=== PATIENT | female | born 1980 | race Caucasian/White ===

== ENCOUNTER 2017-01-15 14:09 | Emergency (ER) | payer OTHER ==
[~2017-01-15] VITALS: Ht 152.4 cm; Wt 150.5 kg
[~2017-01-15 14:09] MED LIST: ALBUAER19 INH; LEVOIUD
[2017-01-15 14:13] VITALS: BP 164/105; PULSE 82; TEMP 36.8; O2SAT 97; Ht 152.4 cm; Wt 150.5 kg
[2017-01-15] MEDS ORDERED: VNTHFA/IN INH (14:46)
[2017-01-15] MEDS ORDERED: SODIUM CHLORIDE 0.9% 1000ML 1,000 ML IV STA (14:59)
--- NOTE | 2017-01-15 15:05 | EMERGENCY ROOM VISIT NOTE ---
History First contact with patient: 14:50 Chief Complaint: OTHER COMPLAINT Stated Complaint: UMBILICAL HERNIA/SCAR TISSUE,TROUBLE PASSING STOOL History of Present Illness The patient is a 36 year old female who presents to the Emergency Room with complaints of left-sided abdominal pain. The patient states that last week she began to notice some left-sided abdominal pain. She had dry heaves on Thursday. The patient states that her bowel movements have been less productive. She reports the pain is in the left lower abdomen and she feels a fullness in that area. She rates her discomfort a 5/10. The patient has a history of abdominal hernia repair 3. She denies any fevers. She denies any pain in her chest or trouble breathing. She denies any current vomiting. She denies urinary symptoms. Review of Systems A 10 system review of systems was completed with positives and pertinent negatives listed in the HPI. Past Medical/Surgical History Medical Problems: (1) Adnexal mass (2) Asthma (3) Deep venous thrombosis (4) Repair of umbilical hernia (5) Schizophrenia (6) Ventral hernia Family History FH: cancer FH: gallbladder disease Social History Smoking Status: Never Smoker Alcohol Use: none Marital Status: Housing Status: lives with family Occupation Status: employed Current/Historical Medications Scheduled Cephalexin Monohydrate (Keflex), 500 MG PO QID Scheduled PRN Albuterol Hfa (Ventolin Hfa), 2 PUFFS INH Q6H PRN for SOB/Wheezing Miscellaneous Medications Levonorgestrel (Iud) (Mirena) Physical Exam Vital Signs Date Time Temp Pulse Resp B/P (MAP) Pulse Ox O2 Delivery O2 Flow Rate FiO2 01/15/17 14:13 36.8 82 18 164/105 97 Room Air Physical Exam VITALS: Vitals are noted on the nurse's note and reviewed by myself. Vital signs stable. GENERAL: This is a morbidly obese 36-year-old female, in no acute distress, nondiaphoretic, well-developed well-nourished. SKIN: There is a very minimal erythematous rash beneath the pannus on the right. There is no significant drainage, warmth. This has the appearance of candidiasis. There is no tenting of the skin. Capillary reflex less than 2 seconds. HEAD: Normocephalic atraumatic. EARS: The external ears are normal in appearance. EYES: Pupils equal round and reactive to light and accommodation. Conjunctivae without injection, sclerae without icterus. Extraocular movements intact. NOSE: Patent, turbinates without inflammation or discharge. MOUTH: Mucous membranes moist. Tonsils are not enlarged. Pharynx without erythema or exudate. Uvula midline. Airway patent. Tongue does not deviate. NECK: Supple without nuchal rigidity. No lymphadenopathy. No thyromegaly. Cervical spine is nontender. No JVD. HEART: Regular rate and rhythm without murmurs gallops or rubs. LUNGS: Clear to auscultation bilaterally without wheezes, rales or rhonchi. No retractions or accessory muscle use. ABDOMEN: The appearance is obese. Positive bowel sounds but diminished. Soft , fullness noticed in the left lower abdomen with tenderness to palpation, without masses or organomegaly. MUSCULOSKELETAL: No muscle atrophy, erythema, or edema noted. Full range of motion in all extremities. Normal gait. Strength 5/5 throughout. NEURO: Patient was alert and oriented to person place and time. No focal neurological deficits. Medical Decision & Procedures ER Provider Diagnostic Interpretation: [~ rep ct add3]] ABD/PELVIS NO IV OR ORAL CONT CLINICAL HISTORY: 36 years-old Female presenting with left lower abdominal pain, fullness; h/o hernia, bowel obstructi. TECHNIQUE: Multidetector CT of the abdomen and pelvis was performed without the use of intravenous contrast. IV contrast: None. A dose lowering technique was used consistent with the principles of ALARA (as low as reasonably achievable). COMPARISON: 11/18/2014. CT DOSE (mGy.cm): The estimated cumulative dose is 2517.07 mGy.cm. FINDINGS: Phthal[facility] Acid Purifier topogram: Unremarkable. Lung bases: Lung bases clear. No pericardial or pleural effusion. Liver: Normal morphology. Normal density. Biliary: No gross biliary ductal dilatation allowing for noncontrast technique. Normal gallbladder. Pancreas: Normal. Spleen: Normal. Adrenal glands: Normal. Kidneys and ureters: Normal. No hydronephrosis. Bladder: Incompletely evaluated secondary to underdistention. Pelvic organs: An exophytic 4.2 cm lesion arises from the lateral aspect of the right ovary and is greater in density than simple fluid. This appearance has slightly changed since the prior exam. The left ovary is normal. An intrauterine device is again located in the lower uterine segment with possible abnormal positioning. Bowel: Large midline ventral hernia has increased in size since the prior exam. The hernia neck at the peritoneal defect measures 11 cm in width and the hernia sac itself measures over 34 cm in width. The hernia sac contains cecum and small bowel. No bowel obstruction. Thin bandlike opacities within the mesentery of the small bowel contained within the hernia sac may suggest adhesions. No fluid or significant inflammatory change within the small bowel mesentery of the hernia sac. No apparent wall thickening allowing for noncontrast technique. Peritoneal cavity: No free fluid or intraperitoneal gas. Vasculature: Normal noncontrast appearance. Lymph nodes: No gross evidence of lymphadenopathy allowing for noncontrast technique. Abdominal wall: Infiltration of the anterior abdominal wall along the inferior aspect and abutting the hernia sac, without infiltration of the small bowel mesentery within the hernia sac. Musculoskeletal: Osteitis ileitis condensans noted. No destructive osseous lesion or acute osseous injury. IMPRESSION: 1. Increased size of the large ventral hernia containing cecum and small bowel. No inflammatory change or fluid within the hernia sac itself to suggest strangulation. No bowel obstruction. 2. Inflammatory change along the anterior abdominal wall immediately inferior and abutting the hernia sac could represent cellulitis. Correlate clinically. 3. An indeterminate exophytic 4.2 cm lesion arises from the right ovary which is not consistent with simple fluid. Although this may have been present on prior exam, the appearance has changed slightly through this remains concerning lesion, and further evaluation with pelvic ultrasound and gynecologic consultation is recommended. It is not apparent on PACS that an ultrasound occurred between the prior recommendation and today's examination. Please confer with the patient's medical chart for possible outside imaging. 4. Possible malpositioning of the intrauterine device, unchanged. The report will be called/faxed according to standard departmental protocol. Laboratory Results 01/15/17 16:02 Red Blood Count 4.61, Mean Corpuscular Volume 81.8, Mean Corpuscular Hemoglobin 26.2, Mean Corpuscular Hemoglobin Concent 32.1, Mean Platelet Volume 10.3, Neutrophils (%) (Auto) 72.3, Lymphocytes (%) (Auto) 20.8, Monocytes (%) (Auto) 5.9, Eosinophils (%) (Auto) 0.5, Basophils (%) (Auto) 0.3, Neutrophils # (Auto) 7.32, Lymphocytes # (Auto) 2.11, Monocytes # (Auto) 0.60, Eosinophils # (Auto) 0.05, Basophils # (Auto) 0.03 01/15/17 16:02 Test 01/15/17 16:02 White Blood Count 10.13 K/uL (4.8-10.8) Red Blood Count 4.61 M/uL (4.2-5.4) Hemoglobin 12.1 g/dL (12.0-16.0) Hematocrit 37.7 % (37-47) Mean Corpuscular Volume 81.8 fL (80-100) Mean Corpuscular Hemoglobin 26.2 pg (25-34) Mean Corpuscular Hemoglobin Concent 32.1 g/dl (32-36) Platelet Count 270 K/uL (130-400) Mean Platelet Volume 10.3 fL (7.4-10.4) Neutrophils (%) (Auto) 72.3 % Lymphocytes (%) (Auto) 20.8 % Monocytes (%) (Auto) 5.9 % Eosinophils (%) (Auto) 0.5 % Basophils (%) (Auto) 0.3 % Neutrophils # (Auto) 7.32 K/uL (1.4-6.5) Lymphocytes # (Auto) 2.11 K/uL (1.2-3.4) Monocytes # (Auto) 0.60 K/uL (0.11-0.59) Eosinophils # (Auto) 0.05 K/uL (0-0.5) Basophils # (Auto) 0.03 K/uL (0-0.2) RDW Standard Deviation 44.7 fL (36.4-46.3) RDW Coefficient of Variation 15.0 % (11.5-14.5) Immature Granulocyte % (Auto) 0.2 % Immature Granulocyte # (Auto) 0.02 K/uL (0.00-0.02) Anion Gap 4.0 mmol/L (3-11) Est Creatinine Clear Calc Drug Dose 202.7 ml/min Estimated GFR () 141.6 Estimated GFR (Non- 122.2 BUN/Creatinine Ratio 18.1 (10-20) Calcium Level 9.3 mg/dl (8.5-10.1) Total Bilirubin 0.2 mg/dl (0.2-1) Aspartate Amino Transf (AST/SGOT) 11 U/L (15-37) Alanine Aminotransferase (ALT/SGPT) 14 U/L (12-78) Alkaline Phosphatase 76 U/L (45-117) Total Protein 7.6 gm/dl (6.4-8.2) Albumin 3.1 gm/dl (3.4-5.0) Globulin 4.5 gm/dl (2.5-4.0) Albumin/Globulin Ratio 0.7 (0.9-2) Lipase 64 U/L (73-393) Medications Administered Medications (Trade) Dose Ordered Sig/Rachel Route Start Time Stop Time Status Last Admin Dose Admin Sodium Chloride 1,000 ml @ 999 mls/hr Q1H1M STAT IV 01/15/17 14:59 01/15/17 15:59 DC 01/15/17 16:51 999 MLS/HR ED Course The patient was seen and examined. Previous visits were reviewed. The patient does not have a fever or leukocytosis. She does not have any significant electrolyte abnormality. Lipase is not elevated. The patient was hydrated with normal saline solution. She declined pain medication. Imaging was obtained as above. The patient does have increasing size in the event true hernia. There is question of overlying skin cellulitis. There is no evidence of strangulation hernia. I discussed the case with Dr. Nunez. He recommends trying antibiotic for a few days for potential cellulitis. He recommends that the patient contact the office first thing in the morning to schedule a follow-up appointment. There is incidental note made of the right ovarian lesion. This is changed in appearance compared to a previous study. I did ask the patient if she ever followed up for this. She states that she was told she has a cyst but has not been evaluated for it since 2012. I did have case management contact [facility] to attempt to make an appointment for the patient and she will certainly need further evaluation of this concerning lesion. They were unable to make an appointment but scheduling stated they would call the patient. The patient was advised of the importance of having this lesion evaluated further. The patient should return to the emergency Department with any severe pain, fever or generalized worsening symptoms. The case was discussed with Dr. sage who agrees with the assessment and plan Medical Decision DIFFERENTIAL DIAGNOSIS: Hepatitis, cholecystitis, cholangitis, biliary colic, pancreatitis, pneumonia, subdiaphragmatic abscess, appendicitis, inguinal hernia , nephrolithiasis, inflammatory bowel disease, mesenteric adenitis, peptic ulcer disease, GERD, gastritis, pancreatitis, myocardial infarction, pericarditis, ruptured aortic aneurysm, appendicitis, gastroenteritis, bowel obstruction, splenic infarct, diverticulitis, mesenteric ischemia, metabolic, peritonitis, among others. Medication Reconcilliation Current Medication List: was personally reviewed by me Blood Pressure Screening Patient's blood pressure: Elevated blood pressure Blood pressure disposition: Elevated BP felt to be situational Impression Primary Impression: Ventral hernia Additional Impression: Lesion of ovary Departure Information Dispostion Home / Self-Care Condition GOOD Prescriptions Cephalexin Monohydrate (Keflex) 500 Mg Cap 500 MG PO QID for 7 Days, #28 CAP Prov: Katty Franklin PA-C 01/15/17 Referrals Cory Patel M.D. (PCP) Michele Nunez D.O., [place], MD Patient Instructions Hernia, My [facility] Additional Instructions Follow-up with [facility] regarding the right ovarian lesion Contact general surgery first thing in the morning to schedule a follow-up appointment for further evaluation and management of the hernia Return with severe and intractable pain, fevers, generalized worsening symptoms Keflex as prescribed, until finished to treat potential skin infection on the abdomen Problem Qualifiers
[2017-01-15 16:26] LABS: BASO % 0.3 %; BASO ABS # 0.03 K/uL (0-0.2); COMPLETE YES; EOS % 0.5 %; HEMATOCRIT 37.7 % (37-47); IG% 0.2 %; LYMPH % 20.8 %; LYMPH ABS # 2.11 K/uL (1.2-3.4); MEAN CELL VOLUME 81.8 fL (80-100); MEAN CORPUSCULAR HEMOGLOBIN 26.2 pg (25-34); MEAN CORPUSCULAR HGB CONC 32.1 g/dl (32-36); MEAN PLATELET VOLUME 10.3 fL (7.4-10.4); MONO % 5.9 %; NEUT % 72.3 %; PLATELET COUNT 270 K/uL (130-400); RED BLOOD COUNT 4.61 M/uL (4.2-5.4); WHITE BLOOD COUNT 10.13 K/uL (4.8-10.8)
--- NOTE | 2017-01-15 16:32 | DIAGNOSTIC IMAGING REPORT ---
ABD/PELVIS NO IV OR ORAL CONT CLINICAL HISTORY: 36 years-old Female presenting with left lower abdominal pain, fullness; h/o hernia, bowel obstructi. TECHNIQUE: Multidetector CT of the abdomen and pelvis was performed without the use of intravenous contrast. IV contrast: None. A dose lowering technique was used consistent with the principles of ALARA (as low as reasonably achievable). COMPARISON: 11/18/2014. CT DOSE (mGy.cm): The estimated cumulative dose is 2517.07 mGy.cm. FINDINGS: [facility] topogram: Unremarkable. Lung bases: Lung bases clear. No pericardial or pleural effusion. Liver: Normal morphology. Normal density. Biliary: No gross biliary ductal dilatation allowing for noncontrast technique. Normal gallbladder. Pancreas: Normal. Spleen: Normal. Adrenal glands: Normal. Kidneys and ureters: Normal. No hydronephrosis. Bladder: Incompletely evaluated secondary to underdistention. Pelvic organs: An exophytic 4.2 cm lesion arises from the lateral aspect of the right ovary and is greater in density than simple fluid. This appearance has slightly changed since the prior exam. The left ovary is normal. An intrauterine device is again located in the lower uterine segment with possible abnormal positioning. Bowel: Large midline ventral hernia has increased in size since the prior exam. The hernia neck at the peritoneal defect measures 11 cm in width and the hernia sac itself measures over 34 cm in width. The hernia sac contains cecum and small bowel. No bowel obstruction. Thin bandlike opacities within the mesentery of the small bowel contained within the hernia sac may suggest adhesions. No fluid or significant inflammatory change within the small bowel mesentery of the hernia sac. No apparent wall thickening allowing for noncontrast technique. Peritoneal cavity: No free fluid or intraperitoneal gas. Vasculature: Normal noncontrast appearance. Lymph nodes: No gross evidence of lymphadenopathy allowing for noncontrast technique. Abdominal wall: Infiltration of the anterior abdominal wall along the inferior aspect and abutting the hernia sac, without infiltration of the small bowel mesentery within the hernia sac. Musculoskeletal: Osteitis ileitis condensans noted. No destructive osseous lesion or acute osseous injury. IMPRESSION: 1. Increased size of the large ventral hernia containing cecum and small bowel. No inflammatory change or fluid within the hernia sac itself to suggest strangulation. No bowel obstruction. 2. Inflammatory change along the anterior abdominal wall immediately inferior and abutting the hernia sac could represent cellulitis. Correlate clinically. 3. An indeterminate exophytic 4.2 cm lesion arises from the right ovary which is not consistent with simple fluid. Although this may have been present on prior exam, the appearance has changed slightly through this remains concerning lesion, and further evaluation with pelvic ultrasound and gynecologic consultation is recommended. It is not apparent on PACS that an ultrasound occurred between the prior recommendation and today's examination. Please confer with the patient's medical chart for possible outside imaging. 4. Possible malpositioning of the intrauterine device, unchanged. The report will be called/faxed according to standard departmental protocol. Electronically signed by: Mitchell Childs M.D. 01/15/2017 4:31 PM Dictated Date/Time: 01/15/2017 4:21 PM
[2017-01-15 16:47] LABS: BUN/CREATININE RATIO 18.1 (10-20); CALCIUM 9.3 mg/dl (8.5-10.1); CREATININE 0.53 mg/dl (0.60-1.20); POTASSIUM 3.9 mmol/L (3.5-5.1)
[2017-01-15 16:50] LABS: ALB/GLOB RATIO 0.7 (0.9-2)
[2017-01-15] MEDS ORDERED: CEPH500C PO (17:13)
== END 2017-01-15 17:58 | disposition home or self-care (01) ==
LOC: C.EDB 14:11 → C.EDA 17:58
DX: K43.9 Ventral hernia without obstruction or gangrene (principal); N83.9 Noninflammatory disorder of ovary, fallopian tube and broad ligament, unspecified; J45.909 Unspecified asthma, uncomplicated; F20.9 Schizophrenia, unspecified

== ENCOUNTER 2017-01-27 15:19 | Emergency (ER) | payer OTHER ==
[~2017-01-27] VITALS: Ht 152.4 cm; Wt 163.7 kg
[~2017-01-27 15:19] MED LIST changes: -ALBUAER19 INH; +VNTHFA/IN INH
[2017-01-27 15:34] VITALS: Ht 152.4 cm; Wt 163.7 kg
[2017-01-27] MEDS ORDERED: MoRPHine SULFATE 4 MG/ML 1 ML CARP\\VIAL IV STA (16:40)
[2017-01-27] MEDS ORDERED: SODIUM CHLORIDE 0.9% 1000ML 1,000 ML IV ONE (16:40)
[2017-01-27] MEDS ORDERED: ONDANSETRON INJ 2 MG/ML 2 ML VIAL IV STA (16:40)
[2017-01-27] MEDS ORDERED: SODIUM CHLORIDE 0.9% 1000ML 1,000 ML IV STA (16:40)
--- NOTE | 2017-01-27 16:42 | EMERGENCY ROOM VISIT NOTE ---
History Report prepared by [place]: Michele Jacobson Under the Supervision of: Dr. Shaji Langley M.D. First contact with patient: 16:32 Chief Complaint: ABDOMINAL PAIN Stated Complaint: SEVERE ABD. PAIN-POSSIBLY IMPACTED VENTRIAL HERNIA Nursing Triage Summary: Pt states, "I was in a couple weeks ago and dx with a hernia. For the past couple days, as soon as I eat, I get shooting pain across my abdomen into my chest. The past two days I've had pain in my back. This is my 4th hernia. I worry that it's obstructed." Nausea. History of Present Illness The patient is a 36 year old female who presents to the Emergency Room with complaints of a persistent abdominal pain worsened with eating that started 4 days ago. She says that she was here 2 weeks ago and had a CT scan done, and was diagnosed with a ventral hernia. This was her 4th hernia. The patient states that when she was seen here then, she just had dry heaves without any abdominal pain. She notes that for the past 4 days, anytime she eats, she gets worsening shooting pain across her abdomen and into her chest. The patient adds that she can drink water fine however. She says that her current pain is similar to when she had her first impacted hernia. She notes that she has been nauseous with dry heaves and chills. She adds that she has had days of alternating mild constipation and diarrhea. She denies any fevers or shortness of breath. Source of History: patient, spouse/significant other Onset: 4 days ago Position: abdomen Quality: other (shooting) Timing: other (persistent) Modifying Factors (Worsening): eating Associated Symptoms: + chills, + chest pain, + nausea, + diarrhea ( alternating with constipation), No fevers, No SOB, No vomiting Note: Associated symptoms: Dry heaves. Review of Systems See HPI for pertinent positives & negatives. A total of 10 systems reviewed and were otherwise negative. Past Medical & Surgical Medical Problems: (1) Adnexal mass (2) Asthma (3) Deep venous thrombosis (4) Repair of umbilical hernia (5) Schizophrenia (6) Ventral hernia Old medical records were reviewed. Nurse's notes were reviewed and I agree with. Several ventral hernia repairs in the past Family History FH: cancer FH: gallbladder disease Social History Smoking Status: Former Smoker Alcohol Use: none Marital Status: Housing Status: lives with family Occupation Status: employed Current/Historical Medications Scheduled PRN Albuterol Hfa (Ventolin Hfa), 2 PUFFS INH Q6H PRN for SOB/Wheezing Miscellaneous Medications Levonorgestrel (Iud) (Mirena) Allergies Coded Allergies: Sulfa Antibiotics (Verified Allergy, Intermediate, ?, 01/27/17) Physical Exam Vital Signs Date Time Temp Pulse Resp B/P (MAP) Pulse Ox O2 Delivery O2 Flow Rate FiO2 01/27/17 19:27 37.1 75 18 126/66 98 01/27/17 18:21 73 18 117/62 100 01/27/17 15:34 37.1 98 18 160/89 97 Room Air Physical Exam General: Well developed well nourished non ill-appearing young female in no acute distress, breathing comfortably on room air. Normal speech HEENT: Normal cephalic atraumatic. Pupils are equal round and reactive to light. Extraocular movements are intact. Oropharynx is pink with moist mucous membranes. No swelling of the mouth lips or tongue. Neck: Supple with a midline trachea. No meningeal signs or stiffness, no JVD or bruits. No Stridor. Chest: Clear to auscultation bilaterally. No wheezes or rhonchi. No increased work of breathing. Heart: regular rate and rhythm. Abdomen: Large ventral hernia that is mildly tender. No redness or warmth. Extremities: No cyanosis clubbing or edema. No calf tenderness or assymetry Spine/Back. Non tender to palpation. No CVA tenderness Skin: Good turgor without rashes. Neurologic exam: Cranial nerves two through 12 are intact. Motor and sensation are intact and symmetrical throughout. Medical Decision & Procedures ER Provider Diagnostic Interpretation: CT results as stated below per my review and radiologist interpretation: ABD/PELVIS NO IV OR ORAL CONT CT DOSE: 2147.02 mGy.cm HISTORY: Pain eval for bowel obit, hernia TECHNIQUE: Multiaxial CT images of the abdomen and pelvis were performed without contrast. A dose lowering technique was utilized adhering to the principles of ALARA. COMPARISON STUDY: 01/15/2017 FINDINGS: Lung bases remain clear. Configuration of liver spleen and pancreas remain unchanged. Kidneys negative for hydronephrosis. There is a large ventral hernia containing loops of bowel are in bowel appears slightly distended as compared to the prior study although a true obstructive pattern is not felt to be present. Maximum diameter of the hernia is similar. No evidence for an intra-abdominal obstructive pattern. Study is somewhat compromised due to patient body habitus with limited evaluation of the anterior abdominal wall. Kidneys negative for hydronephrosis. Bladder is midline. The appendix is not identified again most likely secondary to body habitus considerations. IMPRESSION: 1. Large ventral hernia containing multiple loops of bowel. 2. Slight increase in bowel diameter within the hernia compared to the prior exam, although a true obstructive pattern is not present at the current time. 3. The Current study is considered most consistent with that of a progressive ileus, although monitoring on a clinical basis is suggested to exclude early partial bowel obstructive changes 4. Somewhat limited exam due to patient body habitus considerations. The above report was generated using voice recognition software. It may contain grammatical, syntax or spelling errors. Electronically signed by: Ignacio Smart M.D. 01/27/2017 5:30 PM Dictated Date/Time: 01/27/2017 5:23 PM Laboratory Results 01/27/17 17:10 Red Blood Count 4.85, Mean Corpuscular Volume 83.3, Mean Corpuscular Hemoglobin 26.0, Mean Corpuscular Hemoglobin Concent 31.2, Mean Platelet Volume 10.2, Neutrophils (%) (Auto) 77.0, Lymphocytes (%) (Auto) 17.2, Monocytes (%) (Auto) 5.0, Eosinophils (%) (Auto) 0.2, Basophils (%) (Auto) 0.3, Neutrophils # (Auto) 9.06, Lymphocytes # (Auto) 2.02, Monocytes # (Auto) 0.59, Eosinophils # (Auto) 0.02, Basophils # (Auto) 0.03 01/27/17 17:10 Test 01/27/17 17:10 White Blood Count 11.75 K/uL (4.8-10.8) Red Blood Count 4.85 M/uL (4.2-5.4) Hemoglobin 12.6 g/dL (12.0-16.0) Hematocrit 40.4 % (37-47) Mean Corpuscular Volume 83.3 fL (80-100) Mean Corpuscular Hemoglobin 26.0 pg (25-34) Mean Corpuscular Hemoglobin Concent 31.2 g/dl (32-36) Platelet Count 277 K/uL (130-400) Mean Platelet Volume 10.2 fL (7.4-10.4) Neutrophils (%) (Auto) 77.0 % Lymphocytes (%) (Auto) 17.2 % Monocytes (%) (Auto) 5.0 % Eosinophils (%) (Auto) 0.2 % Basophils (%) (Auto) 0.3 % Neutrophils # (Auto) 9.06 K/uL (1.4-6.5) Lymphocytes # (Auto) 2.02 K/uL (1.2-3.4) Monocytes # (Auto) 0.59 K/uL (0.11-0.59) Eosinophils # (Auto) 0.02 K/uL (0-0.5) Basophils # (Auto) 0.03 K/uL (0-0.2) RDW Standard Deviation 46.2 fL (36.4-46.3) RDW Coefficient of Variation 15.3 % (11.5-14.5) Immature Granulocyte % (Auto) 0.3 % Immature Granulocyte # (Auto) 0.03 K/uL (0.00-0.02) Anion Gap 6.0 mmol/L (3-11) Est Creatinine Clear Calc Drug Dose 196.4 ml/min Estimated GFR () 137.4 Estimated GFR (Non- 118.6 BUN/Creatinine Ratio 14.9 (10-20) Calcium Level 9.7 mg/dl (8.5-10.1) Total Bilirubin 0.3 mg/dl (0.2-1) Direct Bilirubin < 0.1 mg/dl (0-0.2) Aspartate Amino Transf (AST/SGOT) 8 U/L (15-37) Alanine Aminotransferase (ALT/SGPT) 15 U/L (12-78) Alkaline Phosphatase 83 U/L (45-117) Total Protein 8.3 gm/dl (6.4-8.2) Albumin 3.4 gm/dl (3.4-5.0) Lipase 60 U/L (73-393) Human Chorionic Gonadotropin, Qual NEG (NEG) Laboratory studies as stated above per my review. Medications Administered Medications (Trade) Dose Ordered Sig/Rachel Route Start Time Stop Time Status Last Admin Dose Admin Sodium Chloride 1,000 ml @ 999 mls/hr Q1H1M STAT IV 01/27/17 16:40 01/27/17 17:40 DC 01/27/17 16:40 999 MLS/HR Sodium Chloride 1,000 ml @ 150 mls/hr Q6H40M ONCE IV 01/27/17 16:40 01/27/17 20:53 DC 01/27/17 16:40 150 MLS/HR Morphine Sulfate (MoRPHine SULFATE INJ) 4 mg NOW STAT IV 01/27/17 16:40 01/27/17 16:42 DC 01/27/17 17:10 4 MG Ondansetron HCl (Zofran Inj) 4 mg NOW STAT IV 01/27/17 16:40 01/27/17 16:42 DC 01/27/17 17:10 4 MG ED Course 1633: Past medical records reviewed. The patient was evaluated in room C10, and a complete history and physical examination were performed. 1640: Ordered Zofran Inj 4 mg IV, Morphine Sulfate Inj 4 mg IV, NSS 1000 ml @ 150 mls/hr IV, NSS 1000 ml @ 999 mls/hr IV. 1759: I discussed the patient with Dr. Enrique MARTE general surgery - he will come see the patient. 182: I reevaluated the patient and told her that the surgeon is coming. 1853: I discussed the patient with Dr. Enrique MARTE general surgery - he says that the patient can go home. His office will contact the patient within a few days. 185: Upon reevaluation, the patient is resting comfortably. I discussed the results and treatment plan with her. She verbalized agreement of the treatment plan. The patient was discharged home. Medical Decision Differentials include but are not limited to: hernia, bowel obstruction, infection, electrolyte or metabolic abnormality. This patient comes in as described above she is placed in room C 10. She has a large ventral hernia. She's had several repaired in the past. She was seen here about 2 weeks ago for similar complaints and is scheduled to see a surgeon on on early February.. She's had increasing pain over last 4 days she has no redness or warmth on exam she however does have some mild tenderness. IV access established did do a CAT scan. She was given IV morphine and IV Zofran seemed feeling much better . Her white count is only mildly elevated . She has no acute electrolyte or metabolic abnormalities. She has no obstruction on her CAT scan a questionable ileus. I did consult Dr. Nunez to see her in the emergency department, he feels she can go home and he will call her and get her in soon for elective repair. The patient was feeling better she will be discharged home return if: increasing pain, vomiting, worsening of symptoms, any new problems or concerns. Medication Reconcilliation Current Medication List: was personally reviewed by me Blood Pressure Screening Patient's blood pressure: Elevated blood pressure Blood pressure disposition: Elevated BP felt to be situational Consults Time Called: 1754 Consulting Physician: Dr. Enrique MARTE general surgery Returned Call: 1758 I discussed the patient with Dr. Enrique MARTE general surgery. He will come see the patient. Additional Consults: Time Called: -- Consulted Physician: Dr. Enrique MARTE general surgery Returned Call: 1853 (in person) Additional Comments: I discussed the patient with Dr. Enrique MARTE general surgery - he says that the patient can go home. His office will contact the patient within a few days. Impression Primary Impression: Abdominal pain Additional Impression: Ventral hernia Scribe Attestation The scribe's documentation has been prepared under my direction and personally reviewed by me in its entirety. I confirm that the note above accurately reflects all work, treatment, procedures, and medical decision making performed by me. Departure Information Dispostion Home / Self-Care Referrals Cory Patel M.D. (PCP) Forms Call Back Authorization, HOME CARE DOCUMENTATION FORM, IMPORTANT VISIT INFORMATION Patient Instructions My [facility] Additional Instructions Rest Drink plenty of fluids REturn if: worsening of symptoms, fever, increasing pain, vomiting, redness or warmth around the hernia, any new problems or concerns May use over the counter acetaminophen (Tylenol) and/or Ibuprofen if needed Do not exceed over the counter recommended dosages and do not take with other medications that contain Tylenol No more than 650 mg of acetaminophen every 6 hours at the maximum Follow-up with your surgeon. They will call you and get close follow-up this week and return to the ER if symptoms worsen the meantime. Problem Qualifiers
[2017-01-27 17:29] LABS: HEMATOCRIT 40.4 % (37-47); MEAN CELL VOLUME 83.3 fL (80-100); MEAN CORPUSCULAR HGB CONC 31.2 g/dl (32-36); MEAN PLATELET VOLUME 10.2 fL (7.4-10.4); PLATELET COUNT 277 K/uL (130-400); RED BLOOD COUNT 4.85 M/uL (4.2-5.4); WHITE BLOOD COUNT 11.75 K/uL (4.8-10.8)
--- NOTE | 2017-01-27 17:32 | DIAGNOSTIC IMAGING REPORT ---
ABD/PELVIS NO IV OR ORAL CONT CT DOSE: 2147.02 mGy.cm HISTORY: Pain eval for bowel obit, hernia TECHNIQUE: Multiaxial CT images of the abdomen and pelvis were performed without contrast. A dose lowering technique was utilized adhering to the principles of ALARA. COMPARISON STUDY: 01/15/2017 FINDINGS: Lung bases remain clear. Configuration of liver spleen and pancreas remain unchanged. Kidneys negative for hydronephrosis. There is a large ventral hernia containing loops of bowel are in bowel appears slightly distended as compared to the prior study although a true obstructive pattern is not felt to be present. Maximum diameter of the hernia is similar. No evidence for an intra-abdominal obstructive pattern. Study is somewhat compromised due to patient body habitus with limited evaluation of the anterior abdominal wall. Kidneys negative for hydronephrosis. Bladder is midline. The appendix is not identified again most likely secondary to body habitus considerations. IMPRESSION: 1. Large ventral hernia containing multiple loops of bowel. 2. Slight increase in bowel diameter within the hernia compared to the prior exam, although a true obstructive pattern is not present at the current time. 3. The Current study is considered most consistent with that of a progressive ileus, although monitoring on a clinical basis is suggested to exclude early partial bowel obstructive changes 4. Somewhat limited exam due to patient body habitus considerations. The above report was generated using voice recognition software. It may contain grammatical, syntax or spelling errors. Electronically signed by: Ignacio Smart M.D. 01/27/2017 5:30 PM Dictated Date/Time: 01/27/2017 5:23 PM
[2017-01-27 17:48] LABS: ALT/SGPT 15 U/L (12-78); AST/SGOT 8 U/L (15-37); BLOOD UREA NITROGEN 9 mg/dl (7-18); BUN/CREATININE RATIO 14.9 (10-20); CALCIUM 9.7 mg/dl (8.5-10.1); CARBON DIOXIDE 30 mmol/L (21-32); CHLORIDE 102 mmol/L (98-107); CREATININE 0.58 mg/dl (0.60-1.20); GLUCOSE 104 mg/dl (70-99); POTASSIUM 3.7 mmol/L (3.5-5.1); SODIUM 138 mmol/L (136-145)
[2017-01-27 17:54] LABS: ALKALINE PHOSPHATASE 83 U/L (45-117)
[2017-01-27 17:57] LABS: PREG INTERNAL NEGATIVE QC NEG CLEAR BACKGROUND; PREG INTERNAL POSITIVE QC POS CONTROL LINE
[2017-01-27 17:59] LABS: BASO % 0.3 %; BASO ABS # 0.03 K/uL (0-0.2); COMPLETE YES; EOS % 0.2 %; IG% 0.3 %; LYMPH % 17.2 %; LYMPH ABS # 2.02 K/uL (1.2-3.4)
--- NOTE | 2017-01-27 19:18 | Surgery Consultation ---
Consultation Date of Consultation: Jan 27, 2017. Attending Physician: History of Present Illness pt known to our practice. had 3 ventral hernia's repaired so far, last one by Dr. Muro. does heavy lifting at work. has had a known hernia for quite sometime. began bothering her about 4 weeks ago. was seen in the ER about 2 weeks ago and d/c'd. has appnt scheduled for Dr. Muro Mar 03. has intermittent crampy pain and occ "dry heaves". currently feeling better. Past Medical/Surgical History Medical Problems: (1) Abdominal pain Status: Acute (2) Lesion of ovary Status: Acute Family History FH: cancer FH: gallbladder disease Social History Smoking Status: Former Smoker Marital Status: Housing Status: lives with family Occupation Status: employed Allergies Coded Allergies: Sulfa Antibiotics (Verified Allergy, Intermediate, ?, 01/27/17) Home Medications Scheduled PRN Albuterol Hfa (Ventolin Hfa), 2 PUFFS INH Q6H PRN for SOB/Wheezing Miscellaneous Medications Levonorgestrel (Iud) (Mirena) Current Inpatient Medications Current Inpatient Medications Medications (Trade) Dose Ordered Sig/Rachel Route Start Time Stop Time Status Last Admin Dose Admin Sodium Chloride 1,000 ml @ 150 mls/hr Q6H40M ONCE IV 01/27/17 16:40 01/27/17 23:19 01/27/17 16:40 150 MLS/HR Review of Systems Abdomen: + pain, + nausea Physical Exam Date Time Temp Pulse Resp B/P (MAP) Pulse Ox O2 Delivery O2 Flow Rate FiO2 01/27/17 18:21 73 18 117/62 100 01/27/17 15:34 37.1 98 18 160/89 97 Room Air General Appearance: no apparent distress Head: normocephalic, atraumatic Eyes: PERRL, EOMI ENT: hearing grossly normal Neck: supple, no JVD Respiratory/Chest: no respiratory distress, no accessory muscle use Abdomen/GI: + pertinent finding (difficult exam secondary to obesity. soft. large visible hernia. non-tender. no skin discoloration. ) Neurologic/Psych: alert, normal mood/affect Skin: normal color, warm/dry Laboratory Results Last 24 Hours Test 01/27/17 17:10 White Blood Count 11.75 K/uL Red Blood Count 4.85 M/uL Hemoglobin 12.6 g/dL Hematocrit 40.4 % Mean Corpuscular Volume 83.3 fL Mean Corpuscular Hemoglobin 26.0 pg Mean Corpuscular Hemoglobin Concent 31.2 g/dl Platelet Count 277 K/uL Mean Platelet Volume 10.2 fL Neutrophils (%) (Auto) 77.0 % Lymphocytes (%) (Auto) 17.2 % Monocytes (%) (Auto) 5.0 % Eosinophils (%) (Auto) 0.2 % Basophils (%) (Auto) 0.3 % Neutrophils # (Auto) 9.06 K/uL Lymphocytes # (Auto) 2.02 K/uL Monocytes # (Auto) 0.59 K/uL Eosinophils # (Auto) 0.02 K/uL Basophils # (Auto) 0.03 K/uL RDW Standard Deviation 46.2 fL RDW Coefficient of Variation 15.3 % Immature Granulocyte % (Auto) 0.3 % Immature Granulocyte # (Auto) 0.03 K/uL Sodium Level 138 mmol/L Potassium Level 3.7 mmol/L Chloride Level 102 mmol/L Carbon Dioxide Level 30 mmol/L Anion Gap 6.0 mmol/L Blood Urea Nitrogen 9 mg/dl Creatinine 0.58 mg/dl Est Creatinine Clear Calc Drug Dose 196.4 ml/min Estimated GFR () 137.4 Estimated GFR (Non- 118.6 BUN/Creatinine Ratio 14.9 Random Glucose 104 mg/dl Calcium Level 9.7 mg/dl Total Bilirubin 0.3 mg/dl Direct Bilirubin < 0.1 mg/dl Aspartate Amino Transf (AST/SGOT) 8 U/L Alanine Aminotransferase (ALT/SGPT) 15 U/L Alkaline Phosphatase 83 U/L Total Protein 8.3 gm/dl Albumin 3.4 gm/dl Lipase 60 U/L Human Chorionic Gonadotropin, Qual NEG Assessment & Plan recurrent ventral hernia in face of morbid obesity with bowel incarceration no evidence of bowel obstruction pt essentially symptom free currently. no pain/nausea I do not see the need for admission at this time. I will have the office call her in the AM to move up her appnt to be seen in the next couple of days discussed signs/symptoms to return to the ER for. pt agreeable with plan
[2017-01-27 19:27] VITALS: BP 126/66; PULSE 75; TEMP 37.1; O2SAT 98
== END 2017-01-27 19:30 | disposition home or self-care (01) ==
LOC: C.EDB 15:20 → C.EDC 19:30
DX: K43.6 Other and unspecified ventral hernia with obstruction, without gangrene (principal); R10.9 Unspecified abdominal pain; R19.7 Diarrhea, unspecified; J45.909 Unspecified asthma, uncomplicated; E66.01 Morbid (severe) obesity due to excess calories; Z68.45 Body mass index [BMI] 70 or greater, adult; Z86.718 Personal history of other venous thrombosis and embolism; Z87.891 Personal history of nicotine dependence; Z98.890 Other specified postprocedural states

== ENCOUNTER 2017-09-06 22:53 | Emergency (ER) | payer OTHER ==
[~2017-09-06] VITALS: Ht 152.4 cm; Wt 164.5 kg
[~2017-09-06 22:53] MED LIST changes: +LEVO1IUD2 IU; -LEVOIUD
[2017-09-06 22:58] VITALS: TEMP 36.8; Ht 152.4 cm; Wt 164.5 kg
[2017-09-06] MEDS ORDERED: ONDANSETRON INJ 2 MG/ML 2 ML VIAL IV STA (23:20)
[2017-09-06] MEDS ORDERED: KETOROLAC TROMETHAMINE 30 MG/ML VIAL IV STA (23:20)
[2017-09-07 00:17] LABS: CALCIUM 8.5 mg/dl (8.5-10.1); CREATININE 0.58 mg/dl (0.60-1.20)
[2017-09-07 00:22] LABS: POTASSIUM 4.3 mmol/L (3.5-5.1)
[2017-09-07 00:24] LABS: BASO % 0.2 %; BASO ABS # 0.03 K/uL (0-0.2); EOS % 0.2 %; EOS ABS # 0.03 K/uL (0-0.5); HEMATOCRIT 34.8 % (37-47); HEMOGLOBIN 11.7 g/dL (12.0-16.0); IG# 0.03 K/uL (0.00-0.02); LYMPH % 18.3 %; LYMPH ABS # 2.42 K/uL (1.2-3.4); MEAN CELL VOLUME 81.5 fL (80-100); MEAN CORPUSCULAR HEMOGLOBIN 27.4 pg (25-34); MEAN CORPUSCULAR HGB CONC 33.6 g/dl (32-36); MEAN PLATELET VOLUME 9.8 fL (7.4-10.4); MONO % 5.1 %; MONO ABS # 0.68 K/uL (0.11-0.59); NEUT ABS # 10.03 K/uL (1.4-6.5); PLATELET COUNT 264 K/uL (130-400); RED CELL DISTRIBUTION WIDTH CV 15.3 % (11.5-14.5); RED CELL DISTRIBUTION WIDTH SD 45.2 fL (36.4-46.3); WHITE BLOOD COUNT 13.22 K/uL (4.8-10.8)
[2017-09-07] MEDS ORDERED: MULT-506 PO (00:28)
[2017-09-07 01:07] VITALS: BP 114/59; PULSE 72; O2SAT 98
--- NOTE | 2017-09-07 04:30 | EMERGENCY ROOM VISIT NOTE ---
History First contact with patient: 23:05 Chief Complaint: BACK PAIN Stated Complaint: NUMBNESS IN BOTH LEGS, SHARP PAIN IN R LOWER BACK History of Present Illness The patient is a 36 year old female who presents to the Emergency Room with complaints of low back pain that goes to her right thigh region for the past day described as aching, ranging in severity 6 out of 10 worse with movement and better with rest with nausea and one episode of vomiting. Symptoms started while she was walking. No trauma. Patient is concerned she might be . She does have an IUD. Patient denies chest pain, dyspnea, fever, chills, abdominal pain, urinary symptoms, loss of bowel or bladder control, vaginal itching or discharge, leg weakness, IV drug abuse, saddle anesthesia. Review of Systems An 10 system review of systems was completed with positives and pertinent negatives listed in the HPI. Past Medical/Surgical History Medical Problems: (1) Adnexal mass (2) Asthma (3) Deep venous thrombosis (4) Repair of umbilical hernia (5) Schizophrenia (6) Ventral hernia Family History FH: cancer FH: gallbladder disease Social History Smoking Status: Never Smoker Alcohol Use: none Drug Use: none Marital Status: Housing Status: lives with family Occupation Status: employed Current/Historical Medications Scheduled Levonorgestrel (Iud) (Mirena), 1 DOSE IU CONTINOUS Multivitamin (Multivitamin), 1 TAB PO DAILY Physical Exam Vital Signs Date Time Temp Pulse Resp B/P (MAP) Pulse Ox O2 Delivery O2 Flow Rate FiO2 09/07/17 01:07 72 18 114/59 98 Room Air 09/06/17 22:58 36.8 88 16 161/81 96 Room Air Physical Exam VITALS: Vitals are noted on the nurse's note and reviewed by myself. Vital signs stable. GENERAL: Pleasant female, in no acute distress, nondiaphoretic, well-developed well-nourished. SKIN: Capillary reflex less than 2 seconds. HEENT: Normocephalic. PERRLA. EOMI. Nares patent. Mucous membranes moist. Neck is supple without nuchal rigidity. HEART: Regular rate and rhythm without murmurs gallops or rubs. LUNGS: Clear to auscultation bilaterally without wheezes, rales or rhonchi. No retractions or accessory muscle use. ABDOMEN: Positive bowel sounds x 4. Normal tympanic percussion. Soft, protuberant, obese, nontender, without masses or organomegaly. Camargo sign negative. No guarding or rebound tenderness. MUSCULOSKELETAL: No gross musculoskeletal defects. No thoracic or lumbar tenderness on exam. Negative straight leg raise. Patient can walk on toes and heels. NEURO: Patient was alert and oriented to person place and time. Normal sensation to light and sharp touch. Deep tendon reflexes 2+ patella bilaterally. No focal neurological deficits. Medical Decision & Procedures Laboratory Results 09/06/17 23:34 Red Blood Count 4.27, Mean Corpuscular Volume 81.5, Mean Corpuscular Hemoglobin 27.4, Mean Corpuscular Hemoglobin Concent 33.6, Mean Platelet Volume 9.8, Neutrophils (%) (Auto) 76.0, Lymphocytes (%) (Auto) 18.3, Monocytes (%) (Auto) 5.1, Eosinophils (%) (Auto) 0.2, Basophils (%) (Auto) 0.2, Neutrophils # (Auto) 10.03, Lymphocytes # (Auto) 2.42, Monocytes # (Auto) 0.68, Eosinophils # (Auto) 0.03, Basophils # (Auto) 0.03 09/06/17 23:34 Test 09/06/17 23:34 White Blood Count 13.22 K/uL (4.8-10.8) Red Blood Count 4.27 M/uL (4.2-5.4) Hemoglobin 11.7 g/dL (12.0-16.0) Hematocrit 34.8 % (37-47) Mean Corpuscular Volume 81.5 fL (80-100) Mean Corpuscular Hemoglobin 27.4 pg (25-34) Mean Corpuscular Hemoglobin Concent 33.6 g/dl (32-36) Platelet Count 264 K/uL (130-400) Mean Platelet Volume 9.8 fL (7.4-10.4) Neutrophils (%) (Auto) 76.0 % Lymphocytes (%) (Auto) 18.3 % Monocytes (%) (Auto) 5.1 % Eosinophils (%) (Auto) 0.2 % Basophils (%) (Auto) 0.2 % Neutrophils # (Auto) 10.03 K/uL (1.4-6.5) Lymphocytes # (Auto) 2.42 K/uL (1.2-3.4) Monocytes # (Auto) 0.68 K/uL (0.11-0.59) Eosinophils # (Auto) 0.03 K/uL (0-0.5) Basophils # (Auto) 0.03 K/uL (0-0.2) RDW Standard Deviation 45.2 fL (36.4-46.3) RDW Coefficient of Variation 15.3 % (11.5-14.5) Immature Granulocyte % (Auto) 0.2 % Immature Granulocyte # (Auto) 0.03 K/uL (0.00-0.02) Urine Color YELLOW Urine Appearance CLOUDY (CLEAR) Urine pH 5.0 (4.5-7.5) Urine Specific [place] 1.030 (1.000-1.030) Urine Protein NEG (NEG) Urine Glucose (UA) NEG (NEG) Urine Ketones NEG (NEG) Urine Occult Blood NEG (NEG) Urine Nitrite NEG (NEG) Urine Bilirubin NEG (NEG) Urine Urobilinogen NEG (NEG) Urine Leukocyte Esterase NEG (NEG) Urine WBC (Auto) 1-5 /hpf (0-5) Urine RBC (Auto) 0-4 /hpf (0-4) Urine Hyaline Casts (Auto) 1-5 /lpf (0-5) Urine Epithelial Cells (Auto) >30 /lpf (0-5) Urine Bacteria (Auto) NEG (NEG) Urine Yeast (Auto) (NONE PRSENT) Anion Gap 5.0 mmol/L (3-11) Est Creatinine Clear Calc Drug Dose 197.1 ml/min Estimated GFR () 137.4 Estimated GFR (Non- 118.6 BUN/Creatinine Ratio 26.6 (10-20) Calcium Level 8.5 mg/dl (8.5-10.1) Human Chorionic Gonadotropin, Qual NEG (NEG) Chemistry Specimen Hemolysis Medications Administered Medications (Trade) Dose Ordered Sig/Rachel Route Start Time Stop Time Status Last Admin Dose Admin Ketorolac Tromethamine (Toradol Inj) 15 mg NOW STAT IV 09/06/17 23:20 09/06/17 23:21 DC 09/06/17 23:34 15 MG Ondansetron HCl (Zofran Inj) 4 mg NOW STAT IV 09/06/17 23:20 09/06/17 23:21 DC 09/06/17 23:34 4 MG ED Course Prior records/ancillary studies reviewed. Triage Nursing notes reviewed. Additional history obtained from family. The patient's history was concerning for back pain. Differential diagnosis: Etiologies such as musculoskeletal, disc herniation, fracture, aortic disease, metastatic disease, cord compression, discitis, infection, renal colic, gastrointestinal, acute exacerbation of chronic back pain, sciatica, cauda equina, as well as others were entertained. Physical findings: As above. No focal neurologic findings noted. ER treatment provided: Toradol On reassessment the patient felt better. Diagnostics interpreted by me: The labs revealed negative hCG. Mild hyperglycemia without DKA Negative urine. Mild anemia. Mild leukocytosis most of the marginal sedation from vomiting Imaging studies: CT of the L-spine negative for fracture per stat radiology This appears to be consistent with lumbar radiculopathy. Patient was neurovascularly and neurologically intact. She is able to ambulate without difficulties. She felt better after the Toradol. She is advised to stretch the area out and take medications as directed. She is advised to follow-up family care for her blood pressure and her back pain. She is counseled on conservative measures for back pain and verbalized understanding this. She is advised to return to the ER immediately for severe pain, inability to walk, fevers, weakness, worsening sinus symptoms or as needed.. The patient's physical examination and detailed history did not reveal any red flags for back pain such as those listed in the differential diagnosis. Therefore advanced diagnostics and consultations were felt to be unwarranted. By the evaluation outlined above emergent etiologies such as fracture, aortic disease, metastatic disease, infection, renal colic, gastrointestinal, cord compression, cauda equina, as well as others were deemed relatively unlikely. The pt informed about the findings as listed above. All questions were answered and pleased with the treatment. Return instructions were outlined and the patient was discharged in stable condition. Referral: The patient was referred back to primary care physician for follow-up in 2 to 3 days for a recheck of the current condition. Case reviewed with my attending The chart was completed utilizing [employer] voice recognition software. Grammatical errors, random word insertions, pronoun errors, and incomplete sentences are an occassional consequence of this system due to software limitations, ambient noise, and hardware issues. Any formal questions or concerns about the content, text, or information contained within the body of this dictation should be directly addressed to the physician clinical assistant for clarification. Medical Decision As above Medication Reconcilliation Current Medication List: was personally reviewed by me Blood Pressure Screening Patient's blood pressure: Normal blood pressure Impression Primary Impression: Hyperglycemia Additional Impression: Lumbar radiculopathy Departure Information Dispostion Home / Self-Care Condition GOOD Forms HOME CARE DOCUMENTATION FORM, IMPORTANT VISIT INFORMATION Patient Instructions Lumbar Radiculopathy, My Rayna MelletteLiquid State Additional Instructions DO NOT drive, drink alcohol, operate machinery, or perform dangerous activities today. You were given medications in the ER that can affect your ability to safely function or operate a vehicle. Your blood sugar is slightly elevated today. Recheck this with the family care doctor for possible diabetes. Recommend yoga and/or Pilates for back pain to help strengthen uo your core. Recommend physical therapy to help strengthen up your core. Recommend a healthy weight. Ibuprofen(Motrin, Advil) may be used for fever or pain. Use 600mg every six hours as needed. Take with food. Avoid using more than 2400mg in a 24 hour period. Do not use 2400mg per day for more than three consecutive days without physician direction. Prolonged inappropriate use can lead to stomach upset or ulcers. This medication can be taken if you need to drive, work, or perform activities which may be dangerous when taking narcotic pain medication. (AND/OR) Acetaminophen(Tylenol) may be used for fever or pain. Use 1000mg every six hours as needed. Avoid using more than 3000mg in a 24 hour period. This medication can be taken if you need to drive, work, or perform activities which may be dangerous when taking narcotic pain medication. Rest and avoid heavy lifting until your symptoms resolve and then gradually return to full activity. A good rule of thumb is if it hurts your back to perform a certain activity, then it should be avoided until you are healthy again. A heating pad, warm compresses, or a hot shower may help with tight muscles and can be done several times a day as needed. Continue current medications. Return to the ER immediately for any numbness, tingling, severe pain, loss of control of your bowels or bladder, inability to walk, or as needed. Follow up with your primary care physician/orthopedics spine within 3-5 days for a recheck of your current condition. Problem Qualifiers
--- NOTE | 2017-09-07 06:41 | DIAGNOSTIC IMAGING REPORT ---
CT LUMBAR SPINE WITHOUT CT DOSE: 999.06 mGy.cm CLINICAL HISTORY: Low back pain with right leg radiculopathy. TECHNIQUE: Helical images were acquired in transverse plane. Reformatted sagittal and coronal images were reviewed. A dose lowering technique was utilized adhering to the principles of ALARA. CONTRAST: No contrast was administered COMPARISON STUDY: None. FINDINGS: Evaluation is limited due to the patient's very large body habitus L1-2 level: There is no evidence of significant disc bulge or focal herniation. There is no evidence of spinal or foraminal stenosis. L2-3 level: There is a mild circumferential disc bulge. There is minimal spinal canal narrowing. There is no significant foraminal narrowing L3-4 level: There is a mild circumferential disc bulge. There is mild spinal canal narrowing. There is no significant foraminal narrowing L4-5 level: There is equivocal right paracentral disc protrusion. There is no significant foraminal stenosis. L5-S1 level: There is a transitional vertebra present. There is no significant spinal or foraminal stenosis. No fractures or subluxations are visualized. There is SI joint sclerosis. If there is clinical concern the presence of disc disease, an MRI would be recommended in follow-up IMPRESSION: 1. Significantly limited study from a technical standpoint secondary to the patient's large body habitus 2. Transitional vertebra with L5 sacralization 3. No acute fractures or subluxations 4. Equivocal right paracentral disc protrusion at the L4-5 level. 5. The patient has persistent symptoms, an MRI would be considered the test of choice in follow-up. Electronically signed by: Arun Juárez M.D. 09/07/2017 6:40 AM Dictated Date/Time: 09/07/2017 6:36 AM
== END 2017-09-07 01:18 | disposition home or self-care (01) ==
LOC: C.EDB 22:54 → C.EDC 09-07 01:18
DX: M54.16 Radiculopathy, lumbar region (principal); R73.9 Hyperglycemia, unspecified; D64.9 Anemia, unspecified; R11.10 Vomiting, unspecified; J45.909 Unspecified asthma, uncomplicated; Z97.5 Presence of (intrauterine) contraceptive device

== ENCOUNTER 2024-08-18 13:04 | Inpatient (IN) ==
--- NOTE | 2024-08-18 13:08 | Emergency Department Note ---
Impression & Plan SBO (small bowel obstruction), Ventral hernia with bowel obstruction, Cellulitis of abdominal wall ED Provider Note CHIEF COMPLAINT: Nausea HISTORY OF PRESENTING ILLNESS: This 43-year-old female patient presents to the emergency department via EMS for evaluation of nausea. Started with nausea and vomiting yesterday around 3 pm. Today she had a lot of green emesis with ? darker or black vomit. She has a history of multiple abdominal hernias with 3 hernia repairs and is concerned for obstruction. The patient has had a previous bowel obstruction. Mild loose stools last night, but then became solid again today. Last BM 8:30 am today, but has not really been passing gas since per patient. Has not been able to keep much down since yesterday. Denies chest pain or SOB, but had some gas pains from her stomach that radiated towards her chest. Denies any urinary symptoms. Temp 99.2 F max. Received 4 mg Zofran ODT via EMS with improvement of her symptoms. Denies recent antibiotic use, recent travel, drinking from outside water sources/well water, and denies known ill contacts. REVIEW OF SYSTEMS: See HPI for pertinent positives and pertinent negatives. ALLERGIES: Sulfa MEDICATIONS: None PAST MEDICAL HISTORY: See below PHYSICAL EXAM: VITALS: Vitals are noted on the nurse's note and reviewed by myself. GENERAL: Non toxic, in no acute distress, non-diaphoretic. SKIN: The patient has a very large abdominal pannus that extends down to her knees. The patient has some areas of skin breakdown, but no lacerations. There is also erythema, moistness, and foul smell under the most proximal portion of the pannus near the thighs and vaginal area. However, no obvious abscess noted. Capillary refill <2 sec. EYES: PERRLA. EOMI. Conjunctivae without injection, sclerae without icterus. NOSE: Patent without discharge. MOUTH: Mucous membranes moist. Uvula midline. Airway patent. NECK: Supple without nuchal rigidity. HEART: Regular rate and rhythm without murmurs gallops or rubs. LUNGS: Clear to auscultation bilaterally without wheezes, rales or rhonchi. No retractions or accessory muscle use. ABDOMEN: Obese abdomen with significant pannus. Positive bowel sounds x 4. Normal tympanic percussion. Soft, mild diffuse tenderness to palpation. The patient has an area of induration to the left lower portion of the large pannus, but is difficult to tell whether this is a true hernia or not. No significant tenderness to palpation in this area. No significant color changes other than the erythema that appears consistent with cellulitis. Camargo sign negative. No CVA tenderness. No guarding, rigidity, or rebound tenderness. No focal RLQ or LLQ tenderness. MUSCULOSKELETAL: No gross musculoskeletal defects. NEURO: Patient was alert and oriented. No focal neurological deficits. DIFFERENTIAL DIAGNOSIS: Differential diagnosis includes hepatitis, pancreatitis, cholecystitis, cholelithiasis, appendicitis, kidney stone, pyelonephritis, UTI, gastritis, gastroenteritis, norovirus, mesenteric adenitis, obstruction, constipation, hernia, abdominal abscess, perforation, diverticulitis, IBD, ischemic colitis, abdominal aortic aneurysm, , ectopic , ovarian cyst, ovarian torsion, acute salpingitis, or others. ED COURSE AND MEDICAL DECISION MAKING: HISTORY FROM INDEPENDENT HISTORIAN: Additional history obtained from EMS MEDICATIONS GIVEN: 1 L normal saline solution bolus. Tylenol 1000 mg IV. Phenergan 25 mg IM. Rocephin 2 g IV. Pepcid 20 mg IV. MONITOR: Continuous bus driver/monitor: Order was placed for continuous bus driver/monitor. Patient was placed on the bus driver/monitor and continuous pulse ox. Patient was noted to be in normal sinus rhythm at an initial rate of 92 bpm per my interpretation. INTERPRETATION OF LABS: I interpreted the labs with full lab results as below in the lab section of this note. Laboratory results pertinent to the emergent complaint are discussed in the MDM section below. The patient was advised to follow up with their PCP and/or specialist(s) for further outpatient monitoring and management of any abnormal results. INTERPRETATION OF IMAGING: Imaging studies were interpreted by myself and read by radiology as per the imaging section of this note. The patient was advised to follow up with their PCP and/or specialist(s) for further outpatient management of any non-emergent abnormal findings. CT scan of the abdomen pelvis with IV contrast showed a small bowel obstruction which is likely high-grade with transition point present within the patient's large bowel filled abdominal wall hernia with pannus. Cellulitis of the pannus without abscess. Hepatosplenomegaly with hepatic steatosis. Uterine lesion may represent a leiomyoma. Chest x-ray after NG tube insertion showed that the NG tube is in the distal stomach. No acute cardiopulmonary etiology identified. CHRONIC MEDICAL/SOCIAL CONDITIONS AFFECTING CARE: Morbid obesity with large abdominal pannus CONSULTATIONS: ED pharmacist. Dr. Oakes of general surgery. On-call hospitalist. MDM SUMMARY: I examined the patient. The patient has had nausea and vomiting since 3 PM yesterday. She had loose stools yesterday, but a normal bowel movement this morning. Today she started with green emesis and questionable darker or black vomit and she became concerned due to her history of multiple hernias and hernia repairs as well as a previous history of bowel obstruction. The patient was given Zofran 4 mg ODT by EMS with some improvement of her nausea and vomiting. An IV lock was placed and labs were drawn. The patient had already been given Zofran ODT by EMS with improvement of her symptoms. She was given 1 L normal saline solution bolus as well as Tylenol 1000 mg IV. The patient had some return of nausea and she was given Phenergan 25 mg IM. CBC without leukocytosis, anemia, or thrombocytopenia. Potassium low at 3.3 and glucose elevated at 147, but CMP otherwise without concerning abnormalities. Lipase normal. Serum hCG negative. Magnesium normal. High-sensitivity troponin normal. CT scan of the abdomen pelvis with IV contrast showed a small bowel obstruction which is likely high-grade with transition point present within the patient's large bowel filled abdominal wall hernia with pannus. Cellulitis of the pannus without abscess. Hepatosplenomegaly with hepatic steatosis. Uterine lesion may represent a leiomyoma. I spoke with the ED pharmacist in regards to treatment of the cellulitis of the pannus. The patient was given Rocephin 2 g IV. An MRSA swab was obtained to determine if the patient required MRSA coverage. The MRSA swab was negative. The patient was also given Pepcid 20 mg IV for some acid reflux type symptoms. I spoke with Dr. Oakes of general surgery given the patient's small bowel obstruction which is likely high-grade as well as the patient's significant hernia and pannus. He stated that since the patient was stable with reassuring labs and vital signs, the patient could be admitted locally with symptomatic and conservative treatment. However, if the patient would require any surgical intervention, the patient would require tertiary referral/transfer. He recommended an NG tube be placed only if the patient had continued nausea and vomiting. Initially the patient's nausea and vomiting have been well-controlled, but she did have an additional episode of vomiting. Therefore, NG tube was placed. Chest x-ray after NG tube insertion showed that the NG tube is in the distal stomach. No acute cardiopulmonary etiology identified. I had a meaningful discussion about this patient with Dr. Amin who agrees with my assessment and the treatment plan. I spoke with the on-call hospitalist who agreed to admit the patient for further evaluation and treatment. Please refer to their dictation for further details. The patient's care was transferred in stable condition. DIAGNOSIS: Small bowel obstruction Ventral hernia with bowel obstruction Cellulitis of the abdominal pannus Past Med/Surg History Problem List (Updated 08/18/24 @ 21:45 by Clarissa Todd PA-C) Cellulitis of abdominal wall (Acute) Ventral hernia with bowel obstruction (Acute) Abdominal wall cellulitis SBO (small bowel obstruction) (Acute) Abdominal pain (Acute) Dyspepsia (Acute) Hyperglycemia (Acute) Lumbar radiculopathy (Acute) Tubo-ovarian abscess (Acute) Medical History (Updated 08/18/24 @ 21:45 by Clarissa Todd PA-C) Schizophrenia Depression Asthma Seizure Hernia of abdominal wall Morbid obesity Surgical History (Updated 08/18/24 @ 19:23 by Anthony Buchanan MD) H/O hernia repair Social History Smoking Status: Former smoker Hx Alcohol Use: No Hx Substance Use: No Preferred Language: Albanian Communication Ability: Effective Unix Manager Required: No Beliefs That Will Affect Care: None marital status details: Current Living Situation: Spouse current occupational status: employed current occupation: cook Feels Safe at Home: Yes Safety Concerns: Feels Safe At This Time Assistive Devices: None Allergies Allergies Allergy/AdvReac Type Severity Reaction Status Date / Time Sulfa (Sulfonamide Allergy Intermediate ? Verified 09/07/17 00:27 Antibiotics) Home Meds Home Medications Medication Instructions Recorded Confirmed ibuprofen 800 mg tablet 800 mg PO TID PRN Pain 08/18/24 08/18/24 Results & Data (ED) Vital Signs Vital Signs - 24 hr 08/18/24 13:11 08/18/24 13:12 08/18/24 13:18 Temperature 36.7 C Temperature Source Oral Pulse Rate 88 92 H 92 H Pulse Rate [Apical] Pulse Rate from SpO2 Sensor Pulse Rhythm Regular Pulse Rhythm [Apical] Pulse Strength Normal Pulse Strength [Apical] Respiratory Rate 22 17 Respiratory Effort / Characteristics Non-Labored Spontaneous Respiratory Depth Normal Respiratory Pattern Blood Pressure 147/88 H 147/88 H Blood Pressure [Right Arm] Blood Pressure Mean 107 107 Blood Pressure Mean [Right Arm] Pulse Oximetry 92 Oxygen Delivery Method Room Air Oxygen Flow Rate Sepsis Recent Fever Within 48 Hours No Sepsis New/Unexplained Change in Mental Status N/A Sepsis Action Taken by Nursing No Action Required 08/18/24 13:20 08/18/24 14:06 08/18/24 14:33 Temperature Temperature Source Pulse Rate 94 H 89 79 Pulse Rate [Apical] Pulse Rate from SpO2 Sensor Pulse Rhythm Regular Pulse Rhythm [Apical] Pulse Strength Pulse Strength [Apical] Respiratory Rate 15 18 16 Respiratory Effort / Characteristics Respiratory Depth Respiratory Pattern Blood Pressure 124/67 Blood Pressure [Right Arm] Blood Pressure Mean 86 Blood Pressure Mean [Right Arm] Pulse Oximetry 91 Oxygen Delivery Method Room Air Oxygen Flow Rate Sepsis Recent Fever Within 48 Hours Sepsis New/Unexplained Change in Mental Status Sepsis Action Taken by Nursing 08/18/24 15:09 08/18/24 15:11 08/18/24 15:15 Temperature Temperature Source Pulse Rate 74 Pulse Rate [Apical] 71 Pulse Rate from SpO2 Sensor 75 Pulse Rhythm Pulse Rhythm [Apical] Regular Pulse Strength Pulse Strength [Apical] Normal Respiratory Rate 24 17 Respiratory Effort / Characteristics Non-Labored Respiratory Depth Normal Respiratory Pattern Regular Blood Pressure 124/67 Blood Pressure [Right Arm] 124/67 Blood Pressure Mean 86 Blood Pressure Mean [Right Arm] 86 Pulse Oximetry 87 L 95 95 Oxygen Delivery Method Room Air Nasal Cannula Oxygen Flow Rate 2 Sepsis Recent Fever Within 48 Hours Sepsis New/Unexplained Change in Mental Status Sepsis Action Taken by Nursing 08/18/24 18:36 Temperature Temperature Source Pulse Rate 80 Pulse Rate [Apical] Pulse Rate from SpO2 Sensor Pulse Rhythm Pulse Rhythm [Apical] Pulse Strength Pulse Strength [Apical] Respiratory Rate Respiratory Effort / Characteristics Respiratory Depth Respiratory Pattern Blood Pressure Blood Pressure [Right Arm] Blood Pressure Mean Blood Pressure Mean [Right Arm] Pulse Oximetry Oxygen Delivery Method Oxygen Flow Rate Sepsis Recent Fever Within 48 Hours Sepsis New/Unexplained Change in Mental Status Sepsis Action Taken by Nursing Laboratory Data 08/18/24 13:15 08/18/24 13:15 Lab Results 08/18/24 Range/Units 13:15 WBC 5.77 (4.8-10.8) K/ul RBC 5.07 (4.20-5.40) M/uL Hgb 14.2 (12.0-16.0) g/dl Hct 41.5 (37.0-47.0) % MCV 81.9 (80.0-100.0) fL MCH 28.0 (25.0-34.0) pg MCHC 34.2 (32.0-36.0) g/dL RDW Std Deviation 45.1 (36.4-46.3) fL RDW Coeff of [place] 15.3 H (11.5-14.5) % Plt Count 278 (130-400) K/uL MPV 10.5 (9.4-12.4) fL Immature Gran % (Auto) 0.3 % Neut % (Auto) 76.9 % Lymph % (Auto) 12.1 % [place] % (Auto) 10.4 % Eos % (Auto) 0.0 % Baso % (Auto) 0.3 % Neut # (Auto) 4.43 (1.40-6.50) K/uL Lymph # (Auto) 0.70 L (1.20-3.40) K/uL [place] # (Auto) 0.60 H (0.11-0.59) K/uL Eos # (Auto) 0.00 (0.00-0.50) K/uL Baso # (Auto) 0.02 (0.00-0.20) K/uL Immature Gran # (Auto) 0.02 (0.01-0.20) K/uL Sodium 138 (136-145) mmol/L Potassium 3.3 L (3.5-5.1) mmol/L Chloride 98 (98-107) mmol/L Carbon Dioxide 33 H (21-32) mmol/L Anion Gap 7 (3-11) BUN 13 (6-23) mg/dl Creatinine 0.58 L (0.6-1.2) mg/dl Est Cr Clr Drug Dosing 203.9 ml/min eGFR 115.08 BUN/Creatinine Ratio 22.4 H (10-20) Glucose 147 H (70-99(Fasting)) mg/dl Calcium 9.5 (8.6-10.3) mg/dl Magnesium 2.0 (1.7-2.4) mg/dl Total Bilirubin 0.9 (0.2-1.0) mg/dl AST 15 (13-39) U/L ALT 9 (7-52) U/L Alkaline Phosphatase 62 (34-104) U/L Troponin I High Sens < 2.3 (0-14) pg/ml Total Protein 8.7 H (6.0-8.3) gm/dl Albumin 4.0 (3.4-5.0) gm/dl Globulin 4.7 H (2.5-4.0) gm/dl Albumin/Globulin Ratio 0.9 (0.9-2) Lipase 5 L (11-82) U/L HCG, Qual Negative (Negative) Administered Medications Sodium Chloride (Nss) 1,000 mls @ 80 mls/hr IV .[id number] ONE Stop: 08/19/24 07:34 Last Admin: 08/18/24 19:36 Dose: 80 mls/hr Documented By: SUZANNA Discontinued Medications Benzocaine/Butamben/Tetracaine HCl (Benzocaine/Tetracain/Butam 50 Appln/5 Gm Can) Confirm Administered Dose 50 appln EXT .STK-MED ONE Stop: 08/18/24 17:58 Last Admin: 08/18/24 18:05 Dose: 50 appln Documented By: RUMA Sodium Chloride (Nss) 1,000 mls @ 999 mls/hr IV .[id number] ONE Stop: 08/18/24 14:18 Last Infusion: 08/18/24 14:47 Dose: Infused Documented By: Admin: 08/18/24 13:34 Dose: 999 mls/hr Documented By: CRICKET Acetaminophen (Ofirmev) 1,000 mg in 100 mls @ 400 mls/hr IV NOW STA Stop: 08/18/24 13:32 Last Infusion: 08/18/24 14:46 Dose: Infused Documented By: Admin: 08/18/24 13:34 Dose: 400 mls/hr Documented By: CRICKET Ceftriaxone Sodium (Rocephin) 2,000 mg in 50 mls @ 100 mls/hr IV NOW STA Stop: 08/18/24 16:33 Last Infusion: 08/18/24 17:52 Dose: Infused Documented By: Admin: 08/18/24 17:22 Dose: 100 mls/hr Documented By: RUMA Famotidine (Pepcid 20mg Iv Push) 20 mg in 5 mls @ 2.5 mls/min IV NOW STA Stop: 08/18/24 17:19 Last Admin: 08/18/24 17:22 Dose: 2.5 mls/min Documented By: RUMA Potassium Chloride (K Malcolm / Wtr) 10 meq in 100 mls @ 100 mls/hr IV Q1H ROSA ELENA Stop: 08/18/24 20:44 Last Infusion: 08/18/24 21:23 Dose: Infused Documented By: Admin: 08/18/24 19:39 Dose: 80 mls/hr Documented By: SUZANNA Ioversol (Optiray 320 125ml) 115 ml IV ONCE ONE Stop: 08/18/24 14:43 Last Admin: 08/18/24 14:45 Dose: 115 ml Documented By: PRADEEP Lidocaine HCl (Lidocaine Viscous 2% 15 Ml Udc) Confirm Administered Dose 15 ml .ROUTE .ST-MED ONE Stop: 08/18/24 17:58 Last Admin: 08/18/24 18:05 Dose: 15 ml Documented By: RUMA Promethazine HCl (Promethazine Hcl Inj 25 Mg/Ml 1 Ml Vial) 25 mg IM NOW STA Stop: 08/18/24 14:40 Last Admin: 08/18/24 14:55 Dose: 25 mg Documented By: CRICKET Imaging Data Radiologist's Impression: Abdomen/Pelvis CT 08/18/24 13:[address] WITH IV CONTRAST CT DOSE: 2916.06 mGy.cm HISTORY: Acute generalized abdominal pain with nausea and vomiting. History of obstruction. Vomiting, abd pain, history of obstruction TECHNIQUE: Multiaxial CT images of the abdomen and pelvis were performed following the IV administration of 115 cc of Optiray, A dose lowering technique was utilized adhering to the principles of ALARA. COMPARISON STUDY: 03/22/2018 FINDINGS: Moderate coronary artery calcifications. Clear lung bases. There is splenomegaly. The spleen measures 14.5 cm in length. Probable hepatic steatosis. Patent portal vein. Unremarkable gallbladder, pancreas and adrenal glands. Kidneys are within normal limits. No hydronephrosis. Decompressed urinary bladder. Subcentimeter lesion left aspect of the uterus. No abdominal aortic aneurysm. Borderline enlarged inguinal and iliac chain lymph nodes. Fluid-filled distended stomach. Fluid-filled dilated loops of small bowel measure up to approximately 5 cm. The majority of the large bowel is decompressed. Study is difficult to interpret secondary to a large haziness extending below level means which demonstrates cutaneous wall thickening with subcutaneous edema. There is also mesenteric edema with large lower midline abdominal wall hernia containing majority of the small bowel as well as large bowel loops. Transition point noted on image 5 T2 series 3 involving a loop of small bowel within the pannus/hernia. No acute fracture. IMPRESSION: 1. Small bowel obstruction which is likely high-grade with transition point present within the patient's large bowel filled abdominal wall hernia with pannus. 2. Cellulitis of the pannus without abscess. 3. No pneumoperitoneum identified. 4. Hepatosplenomegaly with hepatic steatosis. 5. Uterine lesion may represent a leiomyoma. 6. Additional findings as above. ACT 112: Negative or not required by law. The above report was generated using voice recognition software. It may contain grammatical, syntax or spelling errors. Electronically signed by: Richard Robert M.D. 08/18/2024 3:14 PM Chest X-Ray 08/18/24 17:51 EXAM: XR chest 1V portable CLINICAL HISTORY: Confirm NG tube placement. TECHNIQUE: An X-ray image of the chest is obtained in AP projection. COMPARISON: 11/22/2014 CR. FINDINGS: Pulmonary Parenchyma: The NG tube is seen at the stomach distally, with its tip cut off from view. prominent hilar vascular shadows with accentuated bronchovascular markings No evidence of consolidation, collapse, or focal opacities. No pulmonary nodules are identified. No evidence of pleural effusion or pleural thickening. Heart and Mediastinum: Average cardiothoracic ratio. No mediastinal widening or masses. No hilar or mediastinal lymphadenopathy. Bony Thorax: Bony thorax appears intact without fractures or deformities. Soft Tissues: Soft tissues overlying the chest wall are unremarkable. IMPRESSION: 1. NG tube is seen at the stomach distally, with its tip cut off from view. (New) 2. No acute cardiopulmonary abnormalities are identified. 3. No other interval changes. Electronically signed by Roosevelt Rodriguez 08-18-2024 7:27 PM Discharge Plan Visit Data Chief Complaint: Nausea ED Provider: Jose Amin ED Midlevel Provider: Clarissa Todd Discharge Problem: SBO (small bowel obstruction), Ventral hernia with bowel obstruction, Cellulitis of abdominal wall Patient Disposition: Admitted As Inpatient Condition: Good Discharge Instructions Interventions: ED Discharge Assessment Last Done: 08/18/24 20:09
[2024-08-18] MEDS: SODIUM CHLORIDE 0.9% 1,000 ML IV ONE ×2 (13:34→19:36)
[2024-08-18] MEDS: ACETAMINOPHEN 1,000 MG/100 ML VIAL IV STA (13:34)
[2024-08-18 13:39] LABS: Basophils # (auto) 0.02 K/uL (0.00-0.20); Basophils % (auto) 0.3 %; Hematocrit (blood only) 41.5 % (37.0-47.0); Hemoglobin 14.2 g/dl (12.0-16.0); Immature Granulocytes # (auto) 0.02 K/uL (0.01-0.20); Immature Granulocytes % (auto) 0.3 %; Lymphocytes % (auto) 12.1 %; Mean Corpuscular Hgb Conc 34.2 g/dL (32.0-36.0); Mean Corpuscular Volume 81.9 fL (80.0-100.0); Mean Platelet Volume 10.5 fL (9.4-12.4); Monocytes % (auto) 10.4 %; Neutrophils # (auto) 4.43 K/uL (1.40-6.50); Neutrophils % (auto) 76.9 %; Platelet Count 278 K/uL (130-400); RDW Coefficient of Variation 15.3 % (11.5-14.5); RDW Standard Deviation 45.1 fL (36.4-46.3); Red Blood Count 5.07 M/uL (4.20-5.40); White Blood Count 5.77 K/ul (4.8-10.8)
[2024-08-18 13:56] LABS: Pregnancy Test, Serum Negative (Negative)
[2024-08-18 13:58] LABS: Alanine Aminotransferase 9 U/L (7-52); Albumin Globulin Ratio 0.9 (0.9-2); Alkaline Phosphatase 62 U/L (34-104); Anion Gap 7 (3-11); Aspartate Aminotransferase 15 U/L (13-39); BUN Creatinine Ratio 22.4 (10-20); Bilirubin,Total 0.9 mg/dl (0.2-1.0); Blood Urea Nitrogen 13 mg/dl (6-23); Calcium 9.5 mg/dl (8.6-10.3); Carbon Dioxide 33 mmol/L (21-32); Chloride 98 mmol/L (98-107); Creatinine Clr Calc Pharmacy 203.9 ml/min; Globulin 4.7 gm/dl (2.5-4.0); Glucose 147 mg/dl (70-99(Fasting)); Lipase 5 U/L (11-82); Potassium 3.3 mmol/L (3.5-5.1); Sodium 138 mmol/L (136-145); Total Protein 8.7 gm/dl (6.0-8.3)
[2024-08-18 14:04] LABS: Troponin I High Sensitivity < 2.3 pg/ml (0-14)
[2024-08-18] MEDS: OPTIRAY 320 125ml IV ONE (14:45)
[2024-08-18] MEDS: PROMETHAZINE HCL INJ 25 MG/ML 1 ML VIAL IM STA (14:55)
--- NOTE | 2024-08-18 15:15 | CT Scan Report ---
ABDOMEN AND PELVIS CT WITH IV CONTRAST CT DOSE: 2916.06 mGy.cm HISTORY: Acute generalized abdominal pain with nausea and vomiting. History of obstruction. Vomiting , abd pain, history of obstruction TECHNIQUE: Multiaxial CT images of the abdomen and pelvis were performed following the IV administrat ion of 115 cc of Optiray, A dose lowering technique was utilized adhering to the principles of ALARA . COMPARISON STUDY: 03/22/2018 FINDINGS: Moderate coronary artery calcifications. Clear lung bases. There is splenomegaly. The splee n measures 14.5 cm in length. Probable hepatic steatosis. Patent portal vein. Unremarkable gallbladde r, pancreas and adrenal glands. Kidneys are within normal limits. No hydronephrosis. Decompressed uri nary bladder. Subcentimeter lesion left aspect of the uterus. No abdominal aortic aneurysm. Borderlin e enlarged inguinal and iliac chain lymph nodes. Fluid-filled distended stomach. Fluid-filled dilated loops of small bowel measure up to approximately 5 cm. The majority of the large bowel is decompressed. Study is difficult to interpret secondary to a large haziness extending below level means which demonstrates cutaneous wall thickening with subcut aneous edema. There is also mesenteric edema with large lower midline abdominal wall hernia containin g majority of the small bowel as well as large bowel loops. Transition point noted on image 5 T2 seri es 3 involving a loop of small bowel within the pannus/hernia. No acute fracture. IMPRESSION: 1. Small bowel obstruction which is likely high-grade with transition point present within the patien t's large bowel filled abdominal wall hernia with pannus. 2. Cellulitis of the pannus without abscess. 3. No pneumoperitoneum identified. 4. Hepatosplenomegaly with hepatic steatosis. 5. Uterine lesion may represent a leiomyoma. 6. Additional findings as above. ACT 112: Negative or not required by law. The above report was generated using voice recognition software. It may contain grammatical, syntax o r spelling errors. Electronically signed by: Richard Robert M.D. 08/18/2024 3:14 PM
[2024-08-18] MEDS: FAMOTIDINE 20MG IV PUSH 20 MG/5 ML SYR IV STA (17:22)
[2024-08-18] MEDS: cefTRIAXone SODIUM 2,000 MG/50 ML BAG IV STA (17:22)
[2024-08-18] MEDS: LIDOCAINE VISCOUS 2% 15 ML UDC ONE (18:05)
[2024-08-18] MEDS: BENZOCAINE/TETRACAIN/BUTAM 50 APPLN/5 GM CAN EXT ONE (18:05)
--- NOTE | 2024-08-18 18:16 | History & Physical Report ---
Date of Service August 18, 2024 Assessment & Plan (1) SBO (small bowel obstruction): Plan: Presents w/ nausea, vomiting Last BM this AM, now not passing flatus on CT - Small bowel obstruction which is likely high-grade with transition point present within the patient's large bowel filled abdominal wall hernia with pannus. Plan to place NGT -> now placed and w/ light green output NPO IVF General surgery consulted monitor electrolytes, and replace as needed Currently hypokalemic K 3.3 - will replace and cont. to monitor (2) Abdominal wall cellulitis: Plan: On CT - Cellulitis of the pannus without abscess. Given ceftriaxone in ED, will continue, add doxy Hx of asthma uses albuterol inh prn currently not wheezing, not short of breath Hx of DVT had diag of DVT after hernia surg. repair, no longer on anticoagulation History of Present Illness Chief Complaint: nausea/vomiting, SBO Primary Care Provider: Cory Patel MD 43 y/o F with hx of asthma, obesity, hx of ovarian abscess, PCOS, hx of ventral hernias repair (3), hx of SBO now presents with nausea/vomiting. Nausea, vomiting started yesterday around 3pm, pt had a BM this AM. No blood in stool or emesis. CT abdomen obtained in ED c/w SBO, and surgery was contacted by ED provider. NGT recommended if persistent nausea/vomiting. Per ED provider NGT was ordered and being placed. WBC normal. Afebrile. Pt now w/ NGT placed w/light green output. Reports already feeling much better. Allergies Allergy/AdvReac Type Severity Reaction Status Date / Time Sulfa (Sulfonamide Allergy Intermediate ? Verified 09/07/17 00:27 Antibiotics) Home Medications Medication Instructions Recorded Confirmed Type ibuprofen 800 mg tablet 800 mg PO TID PRN Pain 08/18/24 08/18/24 History Past Med/Surg History Problem List (Updated 08/18/24 @ 18:26 by Anthony Buchanan MD) Abdominal wall cellulitis SBO (small bowel obstruction) Abdominal pain (Acute) Dyspepsia (Acute) Hyperglycemia (Acute) Lumbar radiculopathy (Acute) Tubo-ovarian abscess (Acute) Medical History (Updated 08/18/24 @ 18:26 by Anthony Buchanan MD) Schizophrenia Depression Asthma Seizure Hernia of abdominal wall Morbid obesity Ventral hernia with bowel obstruction Surgical History (Updated 08/18/24 @ 19:23 by Anthony Buchanan MD) H/O hernia repair Social History Smoking Status: Former smoker Hx Alcohol Use: No Hx Substance Use: No Preferred Language: Estonian Communication Ability: Effective Beliefs That Will Affect Care: None marital status details: Current Living Situation: Family current occupational status: employed current occupation: cook Feels Safe at Home: Yes Assistive Devices: None Review of Systems Review of Systems: All systems reviewed & are unremarkable except as noted in Subjective Physical Exam Constitutional: + morbidly obese (F in NAD, w/ NGT) Eyes: PERRL, conjunctivae normal, anicteric sclerae ENMT: external ear and nose normal, oropharynx normal Neck: + short neck Respiratory: normal respiratory effort, lungs clear to auscultation Cardiovascular: RRR, no murmur, no edema Chest (Breasts): Chest: normal inspection of chest Gastrointestinal (Abdomen): + obese abdomen w/ large pannus Musculoskeletal: moves extremities, no LE edema Skin: warm, dry skin, erythema of lower pannus Neurologic: PERRL, EOMI, accommodation nl, no face palsy, no dysarthria Psychiatric: A+Ox3, euthymic affect Results & Data Results & Data Vital Signs (Past 12 Hours) Vital Signs Temp Pulse Pulse Resp BP BP Pulse Ox 08/18/24 15:15 74 17 124/67 95 08/18/24 15:11 95 08/18/24 15:09 71 24 124/67 87 L 08/18/24 14:33 79 16 124/67 08/18/24 14:06 89 18 08/18/24 13:20 94 H 15 91 08/18/24 13:18 92 H 08/18/24 13:12 92 H 17 147/88 H 08/18/24 13:11 36.7 C 88 22 147/88 H 92 O2 Del Method O2 Flow Rate 08/18/24 15:15 08/18/24 15:11 Nasal Cannula 2 08/18/24 15:09 Room Air 08/18/24 14:33 08/18/24 14:06 08/18/24 13:20 Room Air 08/18/24 13:18 08/18/24 13:12 08/18/24 13:11 Room Air Laboratory Results 08/18/24 Range/Units 13:15 WBC 5.77 (4.8-10.8) K/ul RBC 5.07 (4.20-5.40) M/uL Hgb 14.2 (12.0-16.0) g/dl Hct 41.5 (37.0-47.0) % MCV 81.9 (80.0-100.0) fL MCH 28.0 (25.0-34.0) pg MCHC 34.2 (32.0-36.0) g/dL RDW Std Deviation 45.1 (36.4-46.3) fL RDW Coeff of [place] 15.3 H (11.5-14.5) % Plt Count 278 (130-400) K/uL MPV 10.5 (9.4-12.4) fL Immature Gran % (Auto) 0.3 % Neut % (Auto) 76.9 % Lymph % (Auto) 12.1 % Campbell % (Auto) 10.4 % Eos % (Auto) 0.0 % Baso % (Auto) 0.3 % Neut # (Auto) 4.43 (1.40-6.50) K/uL Lymph # (Auto) 0.70 L (1.20-3.40) K/uL Campbell # (Auto) 0.60 H (0.11-0.59) K/uL Eos # (Auto) 0.00 (0.00-0.50) K/uL Baso # (Auto) 0.02 (0.00-0.20) K/uL Immature Gran # (Auto) 0.02 (0.01-0.20) K/uL Sodium 138 (136-145) mmol/L Potassium 3.3 L (3.5-5.1) mmol/L Chloride 98 (98-107) mmol/L Carbon Dioxide 33 H (21-32) mmol/L Anion Gap 7 (3-11) BUN 13 (6-23) mg/dl Creatinine 0.58 L (0.6-1.2) mg/dl Est Cr Clr Drug Dosing 203.9 ml/min eGFR 115.08 BUN/Creatinine Ratio 22.4 H (10-20) Glucose 147 H (70-99(Fasting)) mg/dl Calcium 9.5 (8.6-10.3) mg/dl Magnesium 2.0 (1.7-2.4) mg/dl Total Bilirubin 0.9 (0.2-1.0) mg/dl AST 15 (13-39) U/L ALT 9 (7-52) U/L Alkaline Phosphatase 62 (34-104) U/L Troponin I High Sens < 2.3 (0-14) pg/ml Total Protein 8.7 H (6.0-8.3) gm/dl Albumin 4.0 (3.4-5.0) gm/dl Globulin 4.7 H (2.5-4.0) gm/dl Albumin/Globulin Ratio 0.9 (0.9-2) Lipase 5 L (11-82) U/L HCG, Qual Negative (Negative) Diagnostic Findings CT abdomen/pelvis FINDINGS: Moderate coronary artery calcifications. Clear lung bases. There is splenomegaly. The spleen measures 14.5 cm in length. Probable hepatic steatosis. Patent portal vein. Unremarkable gallbladder, pancreas and adrenal glands. Kidneys are within normal limits. No hydronephrosis. Decompressed urinary la dder. Subcentimeter lesion left aspect of the uterus. No abdominal aortic aneurysm. Borderline enlarged inguinal and iliac chain lymph nodes. Fluid-filled distended stomach. Fluid-filled dilated loops of small bowel measure up to approximately 5 cm. The majority of the large bowel is decompressed. Study is difficult to interpret secondary to a large haziness extending below level means which demonstrates cutaneous wall thickening with subcutaneous edema. There is also mesenteric edema with large lower midline abdominal wall hernia containing majority of the small bowel as well as large bowel loops. Transition point noted on image 5 T2 series 3 involving a loop of small bowel within the pannus/hernia. No acute fracture. IMPRESSION: 1. Small bowel obstruction which is likely high-grade with transition point present within the patient's large bowel filled abdominal wall hernia with pannus. 2. Cellulitis of the pannus without abscess. 3. No pneumoperitoneum identified. 4. Hepatosplenomegaly with hepatic steatosis. 5. Uterine lesion may represent a leiomyoma. 6. Additional findings as above.
--- NOTE | 2024-08-18 19:06 | Surgery Consultation ---
Date of Consultation August 18, 2024 Assessment & Plan (1) Ventral hernia with bowel obstruction: Patient is a 43-year-old female with SBO within large ventral abdominal hernia. She was seen and evaluated this evening in the emergency department. From a surgical standpoint recommend the following: -Patient at this time is nontoxic appearing, resting comfortably, and has no signs of acute abdomen that would warrant emergent surgical intervention. Will plan to treat patient conservatively at this time. -Keep NPO, NGT to remain in place to suction, IV fluids, and monitor bowel function -Given patient's complex surgical history, body habitus, and large ventral hernia, I did discuss with her that if she would require surgical intervention she would need to be transferred to a tertiary care center. I also discussed with the patient that now that she no longer works/heavy lifting, she could consider seeing a hernia specialist again for possible repair. -Medical management per primary team, surgery will continue to follow History of Present Illness Reason for Consultation: SBO History of Present Illness Patient is a 43-year-old female presented to the emergency department this evening for complaints of nausea and vomiting that started this afternoon. Of note, the patient does have a complex surgical history which includes multiple hernia repairs in the past. The patient also has seen a hernia specialist back in 2017 at [facility], however at the time she was working and doing a lot of heavy lifting and ultimately decided not to undergo surgery because of this. The patient also has had a previous bowel obstruction back in 2017 and was treated conservatively at the time, and she states since then she has not had any recurring issues. However, today the patient continued with ongoing nausea and multiple episodes of "dark green/black colored emesis" which ultimately prompted her to come to the emergency room for further evaluation. Her last BM was this morning but otherwise has not passed any gas. The patient was worked up and CT imaging was concerning for SBO with transition point within the large abdominal wall hernia. The patient was seen and evaluated this evening in the emergency department. She is resting comfortably in bed, VSS, and is nontoxic appearing. An NGT has been placed and per nursing staff states there has been over 2L of gastric output. The patient states she currently has no pain and feels significantly better at this time. The patient otherwise denies any new onset fevers, chills, CP or SOB. Allergies Allergy/AdvReac Type Severity Reaction Status Date / Time Sulfa (Sulfonamide Allergy Intermediate ? Verified 09/07/17 00:27 Antibiotics) Home Medications Medication Instructions Recorded Confirmed Type ibuprofen 800 mg tablet 800 mg PO TID PRN Pain 08/18/24 08/18/24 History Patient History Medical History (Updated 08/18/24 @ 21:45 by Clarissa Todd PA-C) Schizophrenia Depression Asthma Seizure Hernia of abdominal wall Morbid obesity Surgical History (Updated 08/18/24 @ 19:23 by Anthony Buchanan MD) H/O hernia repair Social History Smoking Status: Former smoker Hx Alcohol Use: No Hx Substance Use: No Preferred Language: Danish Communication Ability: Effective Road Grader Required: No Beliefs That Will Affect Care: None marital status details: Current Living Situation: Spouse current occupational status: employed current occupation: cook Feels Safe at Home: Yes Safety Concerns: Feels Safe At This Time Assistive Devices: None Review of Systems Constitutional: no fever, no chills and no sweats Respiratory: no cough, no dyspnea and no problem reported Cardiovascular: no chest pain, no palpitations and no syncope Gastrointestinal: + nausea and + vomiting Genitourinary: no dysuria, no urinary frequency and no hematuria Physical Exam Constitutional: WD/WN, vitals as above Respiratory: normal respiratory effort, lungs clear to auscultation Cardiovascular: RRR, no murmur, no edema Gastrointestinal (Abdomen): Morbidly obese, abdomen is soft, nontender throughout. NGT in place. Psychiatric: A+Ox3, euthymic affect Results & Data Vital Signs (Past 12 Hours) Vital Signs Temp Pulse Pulse Resp BP BP Pulse Ox 08/18/24 18:36 80 08/18/24 15:15 74 17 124/67 95 08/18/24 15:11 95 08/18/24 15:09 71 24 124/67 87 L 08/18/24 14:33 79 16 124/67 08/18/24 14:06 89 18 08/18/24 13:20 94 H 15 91 08/18/24 13:18 92 H 08/18/24 13:12 92 H 17 147/88 H 08/18/24 13:11 36.7 C 88 22 147/88 H 92 O2 Del Method O2 Flow Rate 08/18/24 18:36 08/18/24 15:15 08/18/24 15:11 Nasal Cannula 2 08/18/24 15:09 Room Air 08/18/24 14:33 08/18/24 14:06 08/18/24 13:20 Room Air 08/18/24 13:18 08/18/24 13:12 08/18/24 13:11 Room Air Diagnostic Findings ABDOMEN AND PELVIS CT WITH IV CONTRAST CT DOSE: 2916.06 mGy.cm HISTORY: Acute generalized abdominal pain with nausea and vomiting. History of obstruction. Vomiting, abd pain, history of obstruction TECHNIQUE: Multiaxial CT images of the abdomen and pelvis were performed following the IV administration of 115 cc of Optiray, A dose lowering technique was utilized adhering to the principles of ALARA. COMPARISON STUDY: 03/22/2018 FINDINGS: Moderate coronary artery calcifications. Clear lung bases. There is splenomegaly. The spleen measures 14.5 cm in length. Probable hepatic steatosis. Patent portal vein. Unremarkable gallbladder, pancreas and adrenal glands. Kidneys are within normal limits. No hydronephrosis. Decompressed urinary bladder. Subcentimeter lesion left aspect of the uterus. No abdominal aortic aneurysm. Borderline enlarged inguinal and iliac chain lymph nodes. Fluid-filled distended stomach. Fluid-filled dilated loops of small bowel measure up to approximately 5 cm. The majority of the large bowel is decompressed. Study is difficult to interpret secondary to a large haziness extending below level means which demonstrates cutaneous wall thickening with subcutaneous edema. There is also mesenteric edema with large lower midline abdominal wall hernia containing majority of the small bowel as well as large bowel loops. Transition point noted on image 5 T2 series 3 involving a loop of small bowel within the pannus/hernia. No acute fracture. IMPRESSION: 1. Small bowel obstruction which is likely high-grade with transition point present within the patient's large bowel filled abdominal wall hernia with pannus. 2. Cellulitis of the pannus without abscess. 3. No pneumoperitoneum identified. 4. Hepatosplenomegaly with hepatic steatosis. 5. Uterine lesion may represent a leiomyoma. 6. Additional findings as above PG Care Time/CCT Total # of Minutes Spent Total Time Spent with Patient: Total time spent is greater than 50% in coordination of care (as documented) at patient's floor/unit and/or counseling patient: [place] [address] INT INP/OBS CARE 40MIN Patient Type New Medical Decision Making Straight Forward Diagnoses Ventral hernia with bowel obstruction K43.6
--- NOTE | 2024-08-18 19:28 | XRay Report ---
EXAM: XR chest 1V portable CLINICAL HISTORY: Confirm NG tube placement. TECHNIQUE: An X-ray image of the chest is obtained in AP projection. COMPARISON: 11/22/2014 CR. FINDINGS: Pulmonary Parenchyma: The NG tube is seen at the stomach distally, with its tip cut off from view. prominent hilar vascular shadows with accentuated bronchovascular markings No evidence of consolidation, collapse, or focal opacities. No pulmonary nodules are identified. No evidence of pleural effusion or pleural thickening. Heart and Mediastinum: Average cardiothoracic ratio. No mediastinal widening or masses. No hilar or mediastinal lymphadenopathy. Bony Thorax: Bony thorax appears intact without fractures or deformities. Soft Tissues: Soft tissues overlying the chest wall are unremarkable. IMPRESSION: 1. NG tube is seen at the stomach distally, with its tip cut off from view. (New) 2. No acute cardiopulmonary abnormalities are identified. 3. No other interval changes. Electronically signed by Roosevelt Rodriguez 08-18-2024 7:27 PM
[2024-08-18] MEDS: POTASSIUM CHLORIDE / WTR 10 MEQ/100 ML PLCT IV SCH (19:39)
--- OUTSIDE RECORDS SUMMARY | 2024-08-19 02:23 | External Medical Summary | Summary of Care ---
Author Name Unknown Organization [facility] Address [address] [place] [address] Phone [phone] Care Team Providers Care Justice Professor Name Role Phone Unavailable Primary Care Provider Unavailabl e Encounter Details Date Type Department Care Team (Late st Contact Info) Description 06/16/2024 Population Health External Data Unspecified Department Allergies Active Allergy Reactions Criticality Noted Date Comments Sulfa Antibiotics 03/15/1998 Childhood allergy documented as of this encounter (statuses as of 06/16/2024) Medications albuterol (PROAIR HFA) 108 (90 BASE) MCG/ACT inhalerIndicatio ns:LRTI (lower respiratory tract infection) Inhale 2 Puffs by mouth every 4 hours as needed for Shortness of Breath or Wheezing. 1 Inhaler 7 Active predniSONE 10 MG Oral Tablet (Deltasone)Indic ations:Bronchiti s, complicated Take 5 tabs for 2 days, 4 tabs for 2 days, 3 tabs for 2 days, 2 tabs for 2 days 1 tab for 2 days 30 Tablet 2 Active ProAir HFA 108 (90 Base) MCG/ACT Inhalation Aerosol SolutionIndicati ons:Bronchitis, complicated Inhale by mouth 2 Puffs every 4 hours as needed for Wheezing. May substitute proventil or ventolin 18 g 2 Active documented as of this encounter (statuses as of 06/16/2024) Active Problems Problem Noted Date Diagnosed Date Body mass index (BMI) greater than or equal to 7 0 in adult 09/30/2021 Overview: Per Obesity protocol - Twice weekly testing at 32 weeks gestation due to class III obesity. Recommend follow up ultrasound with MFM in 6 weeks (scheduled for August 09) for growth secondary to class III obesity. Anesthesia consult for [place] ordered today, will start scheduling process (07/05/12). Ovarian mass, right 03/31/2018 Encounter for long-term (current) use of antibio tics 05/12/2012 Anticoagulated on heparin 03/29/2012 Personal history of DVT (deep vein thrombosis) 0 02/18/2012 Overview (04/26/2012): Personal history of DVT (deep vein thrombosis) Yes 1. Discussed the risks and benefits of anticoagulation therapy which include an overall 2.1% risk for bleeding complications occuring during or after . Despite being on anticoagulation therapy, 1.15% of women may still develop a VTE and this risk may be greater during . Other slightly increased risks include osteoporosis (with long-term therapy) and thrombocytopenia. 2. Prophylactic dose anticoagulation is recommended with heparin 5000u BID/7500u BID/10,000u BID (increasing by trimester). Debby has requested heparin rather than lovenox secondary to insurance concerns. PTT should not be altered by prophylactic dose heparin. 3. Recommend Calcium 1500mg daily. 4. Recommend monitoring platelet counts on days 3,7,15, and 21 to rule out episodes of heparin-induced thrombocytopenia. - Done, WNL. 5. Patients should withhold their injections at the onset of labor. Anticoagulation therapy may be resumed 4 to 6 hours after uncomplicated vaginal delivery and 6 to 12 hours after an uncomplicated section. Therapy should continue for 6 weeks . Supervision of other high-risk 012 Overview (07/26/2021): Historical- Pt received flu vaccine. 03/02/2012 Sosa Roca RN [facility] 05/12/12: She is currently on 7500 units of Heparin BID for prophylaxis. (She declined Lovenox due to insurance purposes.) [place] [facility] Recommend we make arrangements for anesthesia consult at the next visit. RECOMMENDATIONS: Recommend follow up ultrasound with MFM in 6 weeks for growth and f/u anatomy secondary to Long-Term Anticoagulants; Class III Obesity; Personal Hx DVT. MFM 08/09: She initially reported that she was told to have a . However, given her history of prior abdominal surgery, DVT, and morbid obesity, we feel that a vaginally delivery would be ideal for her if she is able. We suggested that she schedule a visit at 38 weeks at [facility] for a appointment. If she has a favorable Bowman score, she could be set up for induction at or after 39w0d. If it is unfavorable, repeat assessment one week later with plans for induction at 40w0d may be best. She should continue surveillance. If induction is scheduled, she should hold her heparin dose the night before presentation. RECOMMENDATIONS: Increase heparin to 10,000 units BID. Recommend continued surveillance secondary to class III obesity, asthma, anticoagulation. No further follow up with MFM is necessary. Recommend delivery at 39w0d to 40w0d gestation. ICD-10 update of inactive term Schizophrenia 02/18/2012 Overview (07/26/2021): Historical or address if current documented as of this encounter (statuses as of 06/16/2024) Resolved Problems Problem Noted Date Diagnosed Date Resolved Date Food insecurity 08/05/2021 08/06/2022 Overview: Per [facility] Protocol IUD (intrauterine device) in place 04/18/2014 03/31/2018 ADVANCE DIRECTIVE INFORMATION 08/24/2012 03/28/2024 Overview (05/12/2012): No, Advance Directive brochure offered, patient declined. Obesity, morbid (more than 1 00 lbs over ideal weight or BMI > 40) 05/12/2012 10/03/2021 Overview (07/05/2012): Twice weekly testing at 32 weeks gestation due to class III obesity. Recommend follow up ultrasound with MFM in 6 weeks (scheduled for August 09) for growth secondary to class III obesity. Anesthesia consult for [place] ordered today, will start scheduling process (07/05/12). ADVANCE DIRECTIVE INFORMATION 02/18/2012 05/12/2012 Overview (03/03/2005): No, Advance Directive brochure offered , patient declined. Asthma with severity to be determined 02/18/2012 05/03/2013 Overview (09/03/2015): ICD-10 update of inactive term Phlebitis and thrombophlebit is of other deep vessels of lower extremities 06/18/2011 02/18/2012 Umbilical hernia 01/24/2010 06/13/2021 Overview (06/13/2021): 06/07/11 Umbil hernia repair (incarcerated) age 5+yr Mini-laparotomy, partial omentectomy, and umbilical hernia repair (primary) 06/07/11 Obesity, morbid (more than 1 00 lbs over ideal weight or BMI > 40) 08/21/2009 03/29/2012 Overview (08/13/2015): Per Obesity Taxonomy ICD-10 update of inactive term VIRAL GASTROENTERITIS 07/13/20092011 Fever 07/13/2009 02/18/2012 Diarrhea 07/13/2009 02/18/2012 Nausea 07/13/2009 02/18/2012 Overview (03/17/2017): ICD-10 update of inactive term HISTORY OF TOBACCO USE 02/20/200603/22 ACUTE SINUSITIS NOS 02/03/2006 03/22/20 07 Allergic rhinitis 02/03/2006 02/18/2012 DYSFUNCT EUSTACHIAN TUBE 02/03/2006 Tobacco use disorder 02/03/2006 007 Unspecified viral infection, in conditions classified elsewhere and of unspecified site 07/13/2000 03/22/2007 Volume depletion 07/13/2000 03/22/2007 SCHIZOPHRENIA NEC-UNSPEC 10/30/199909/2011 Chronic rhinitis 02/18/2012 OBESITY, UNSPECIFIED 010 Overview (08/21/2009): Per Obesity Taxonomy Encounter for long-term (cur rent) use of medications 03/22/2007 Overview (03/17/2017): ICD-10 update of inactive term documented as of this encounter (statuses as of 06/16/2024) Immunizations Name Administration Dates Next Due Seasonal Influenza Vac., MDV, IM, 0.5 mL (Fluzon e) 03/02/2012 Seasonal Influenza, PF, 6 M & above, IM , (FluLaval or Fluzone) 02/28/2023 TDAP, Age 7 and older, IM (Adacel) 03/22/2007 documented as of this encounter Social History Tobacco Use Types Packs/Day Years Used Date Smoking Tobacco: Former Cigarettes Q uit: 02/04/2008 Smokeless Tobacco: Never Alcohol Use Standard Drinks/Week Comments No 2.5 (1 standard drink = 0.6 oz p ure alcohol) socially, rare Hunger Vital Sign Answer Date Recorded Within the past 12 months, y ou worried that your food would run out before you got the money to buy more. Patient declined Within the past 12 months, t he food you bought just didn't last and you didn't have money to get more. 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 Not on file Not on file Not on file documented as of this encounter Plan of Treatment Health Maintenance Due Date Last Done Comments Lipid Panel 1980 Depression Screening 1992 HIV Screening 11/24/1995 Hepatitis C Screening 1998 Hepatitis B Vaccine (1 of 3 - 19+ 3-dose series) 11/24/1999 HPV/Co-Test 2010 DTap/Tdap Vaccines (3 - Td or Tdap) 03/22/2017 03/22/2007, 11/27/1995 Mammogram 2020 Cervical Cancer Screening 04/19/2021 Pap Smear 04/19/2021 04/19/2018, 09/22, 10/01/2010, Additional history exists COVID-19 Vaccine ( season) 2024 08/06/2020, 07/16/2020 Diabetes Screening 08/06/2024 08/06/2021, 0 06/20/2021, 06/20/2021, Additional history exists Pneumococcal Vaccine: Pediatrics (0 to 5 Years) and At-Risk Patients (6 to 18 Years and 19+ Years) Aged Out 11/19/2012 No longer eligib le based on patient's age to complete this topic Influenza Vaccine (FLU shot) Completed , 02/28/2023, 04/12/2021, Additional history exists HPV (Gardasil) Vaccine Aged Out No lo nger eligible based on patient's age to complete this topic MENINGOCOCCAL (MENACTRA/MENVEO) Aged Out No longer eligible based on patient's age to complete this topic documented as of this encounter Medical Devices Not on filedocumented as of this encounter Advance Directives * Full Code (Latest Code Status on File) Date Activated Date Inactivated Comments 08/26/2012 7:59 AM 08/29/2012 4:08 PM This order ref lects the patients wishes and were consensually agreed upon.
[2024-08-19 04:33] LABS: Appearance Urine Clear (Clear); Bacteria Urine Automated 1+ (None Seen); Bilirubin Urine 1+ (Negative); Blood Urine Negative (Negative); Cast Urine Automated 0-2 /lpf (0-2); Color Urine Dark Yellow; Glucose Urine UA Negative (Negative); Ketones Urine 1+ (Negative); Leukocyte Esterase Urine Negative (Negative); Nitrite Urine Negative (Negative); Protein Urine 1+ (Negative); RBC Urine Automated 0-2 /hpf (0-2); Specific Gravity Urine > 1.045 (1.000-1.030); Urobilinogen Urine Negative (Negative); WBC Urine Automated 0-5 /hpf (0-5)
[2024-08-19 06:26] LABS: Hematocrit (blood only) 40.3 % (37.0-47.0); Hemoglobin 12.4 g/dl (12.0-16.0); Mean Corpuscular Hgb Conc 30.8 g/dL (32.0-36.0); Mean Corpuscular Volume 84.5 fL (80.0-100.0); Mean Platelet Volume 10.5 fL (9.4-12.4); Platelet Count 235 K/uL (130-400); RDW Coefficient of Variation 15.4 % (11.5-14.5); RDW Standard Deviation 47.2 fL (36.4-46.3); Red Blood Count 4.77 M/uL (4.20-5.40); White Blood Count 5.24 K/ul (4.8-10.8)
[2024-08-19 06:49] LABS: BUN Creatinine Ratio 25.9 (10-20); Creatinine Clr Calc Pharmacy 200.8 ml/min; Magnesium 2.1 mg/dl (1.7-2.4); Phosphorus 3.6 mg/dl (2.5-4.9); Potassium 3.5 mmol/L (3.5-5.1)
[2024-08-19] MEDS: ACETAMINOPHEN 1,000 MG/100 ML VIAL IV PRN (07:37)
--- NOTE | 2024-08-19 08:03 | Hospitalist Progress Note ---
Date of Service August 19, 2024 Assessment & Plan (1) SBO (small bowel obstruction): Plan: Presents w/ nausea, vomiting Last BM yesterday AM (08/18), now not passing flatus on CT - Small bowel obstruction which is likely high-grade with transition point present within the patient's large bowel filled abdominal wall hernia with pannus. NGT placed in ED -> still with output NPO IVF General surgery consulted - cont. current management monitor electrolytes, and replace as needed On admission hypokalemic K 3.3 - replace and cont. to monitor (2) Abdominal wall cellulitis: Plan: On CT - Cellulitis of the pannus without abscess. Given ceftriaxone in ED, will continue, added doxy Hx of asthma uses albuterol inh prn currently not wheezing, not short of breath Hx of DVT had diag of DVT after hernia surg. repair, no longer on anticoagulation cont. scds Admission and Anticipated Discharge Date Admission Date: August 18, 2024 Subjective Pt seen in follow up of SBO, hx of several abd. surgeries / hernia repairs, BMI 80 NGT placed in ED Currently sitting up in bed in NAD, NGT still placed with some brown output Overall pt reports feeling much better denies any chest pain, shortness of breath Review of Systems Review of Systems: All systems reviewed & are unremarkable except as noted in Subjective Physical Exam Physical Exam: Constitutional: + morbidly obese F in NAD, w/ NGT Eyes: PERRL, conjunctiva e normal, anicteri c sclerae ENMT: external ear and n ose normal, oropha rynx normal Neck: + short neck Respiratory: normal respiratory effort, lungs carlos ar to auscultation Cardiovascular: RRR, no murmur, no edema Chest (Breasts): Chest: normal insp ection of chest Gastrointestinal ( Abdomen): + obese abdomen w/ large pannus Musculoskeletal: moves extremities , no LE edema Skin: warm, dry skin, e rythema of lower p annus Neurologic: PERRL, EOMI, no fa ce palsy, no dysar thria, moves extre mities Psychiatric: A+Ox3, euthymic af fect Results & Data Results & Data Vital Signs (Past 12 Hours) Vital Signs Temp Pulse Pulse Resp BP Pulse Ox O2 Del Method 08/19/24 07:15 74 08/19/24 03:53 36.6 C 80 16 115/64 92 Nasal Cannula 08/18/24 23:15 36.6 C 82 18 114/64 90 Nasal Cannula 08/18/24 21:26 Nasal Cannula 08/18/24 21:15 76 08/18/24 20:30 36.8 C 91 H 20 139/84 94 Room Air O2 Flow Rate 08/19/24 07:15 08/19/24 03:53 2 08/18/24 23:15 2 08/18/24 21:26 2 08/18/24 21:15 08/18/24 20:30 2 Laboratory Results 08/19/24 08/19/24 08/18/24 Range/Units 06:03 04:00 19:47 WBC 5.24 (4.8-10.8) K/ul RBC 4.77 (4.20-5.40) M/uL Hgb 12.4 (12.0-16.0) g/dl Hct 40.3 (37.0-47.0) % MCV 84.5 (80.0-100.0) fL MCH 26.0 (25.0-34.0) pg MCHC 30.8 L (32.0-36.0) g/dL RDW Std Deviation 47.2 H (36.4-46.3) fL RDW Coeff of [place] 15.4 H (11.5-14.5) % Plt Count 235 (130-400) K/uL MPV 10.5 (9.4-12.4) fL Immature Gran % (Auto) % Neut % (Auto) % Lymph % (Auto) % [place] % (Auto) % Eos % (Auto) % Baso % (Auto) % Neut # (Auto) (1.40-6.50) K/uL Lymph # (Auto) (1.20-3.40) K/uL [place] # (Auto) (0.11-0.59) K/uL Eos # (Auto) (0.00-0.50) K/uL Baso # (Auto) (0.00-0.20) K/uL Immature Gran # (Auto) (0.01-0.20) K/uL Sodium 140 (136-145) mmol/L Potassium 3.5 (3.5-5.1) mmol/L Chloride 101 (98-107) mmol/L Carbon Dioxide 35 H (21-32) mmol/L Anion Gap 4 (3-11) BUN 15 (6-23) mg/dl Creatinine 0.58 L (0.6-1.2) mg/dl Est Cr Clr Drug Dosing 200.8 ml/min eGFR 115.08 BUN/Creatinine Ratio 25.9 H (10-20) Glucose 125 H (70-99(Fasting)) mg/dl Calcium 9.0 (8.6-10.3) mg/dl Phosphorus 3.6 (2.5-4.9) mg/dl Magnesium 2.1 (1.7-2.4) mg/dl Total Bilirubin (0.2-1.0) mg/dl AST (13-39) U/L ALT (7-52) U/L Alkaline Phosphatase (34-104) U/L Troponin I High Sens (0-14) pg/ml Total Protein (6.0-8.3) gm/dl Albumin (3.4-5.0) gm/dl Globulin (2.5-4.0) gm/dl Albumin/Globulin Ratio (0.9-2) Lipase (11-82) U/L HCG, Qual (Negative) Urine Color Dark Yellow Urine Appearance Clear (Clear) Urine pH 5.0 (4.5-7.5) Ur Specific [place] > 1.045 H (1.000-1.030) Urine Protein 1+ H (Negative) Urine Glucose (UA) Negative (Negative) Urine Ketones 1+ H (Negative) Urine Blood Negative (Negative) Urine Nitrite Negative (Negative) Urine Bilirubin 1+ H (Negative) Urine Urobilinogen Negative (Negative) Ur Leukocyte Esterase Negative (Negative) Urine WBC (Auto) 0-5 (0-5) /hpf Urine RBC (Auto) 0-2 (0-2) /hpf U Hyaline Cast (Auto) 0-2 (0-2) /lpf U Epithel Cells (Auto) 3-5 H (0-2) /hpf Urine Bacteria (Auto) 1+ H (None Seen) Nasal Screen MRSA (PCR) Negative (Negative) 08/18/24 Range/Units 13:15 WBC 5.77 (4.8-10.8) K/ul RBC 5.07 (4.20-5.40) M/uL Hgb 14.2 (12.0-16.0) g/dl Hct 41.5 (37.0-47.0) % MCV 81.9 (80.0-100.0) fL MCH 28.0 (25.0-34.0) pg MCHC 34.2 (32.0-36.0) g/dL RDW Std Deviation 45.1 (36.4-46.3) fL RDW Coeff of [place] 15.3 H (11.5-14.5) % Plt Count 278 (130-400) K/uL MPV 10.5 (9.4-12.4) fL Immature Gran % (Auto) 0.3 % Neut % (Auto) 76.9 % Lymph % (Auto) 12.1 % [place] % (Auto) 10.4 % Eos % (Auto) 0.0 % Baso % (Auto) 0.3 % Neut # (Auto) 4.43 (1.40-6.50) K/uL Lymph # (Auto) 0.70 L (1.20-3.40) K/uL [place] # (Auto) 0.60 H (0.11-0.59) K/uL Eos # (Auto) 0.00 (0.00-0.50) K/uL Baso # (Auto) 0.02 (0.00-0.20) K/uL Immature Gran # (Auto) 0.02 (0.01-0.20) K/uL Sodium 138 (136-145) mmol/L Potassium 3.3 L (3.5-5.1) mmol/L Chloride 98 (98-107) mmol/L Carbon Dioxide 33 H (21-32) mmol/L Anion Gap 7 (3-11) BUN 13 (6-23) mg/dl Creatinine 0.58 L (0.6-1.2) mg/dl Est Cr Clr Drug Dosing 203.9 ml/min eGFR 115.08 BUN/Creatinine Ratio 22.4 H (10-20) Glucose 147 H (70-99(Fasting)) mg/dl Calcium 9.5 (8.6-10.3) mg/dl Phosphorus (2.5-4.9) mg/dl Magnesium 2.0 (1.7-2.4) mg/dl Total Bilirubin 0.9 (0.2-1.0) mg/dl AST 15 (13-39) U/L ALT 9 (7-52) U/L Alkaline Phosphatase 62 (34-104) U/L Troponin I High Sens < 2.3 (0-14) pg/ml Total Protein 8.7 H (6.0-8.3) gm/dl Albumin 4.0 (3.4-5.0) gm/dl Globulin 4.7 H (2.5-4.0) gm/dl Albumin/Globulin Ratio 0.9 (0.9-2) Lipase 5 L (11-82) U/L HCG, Qual Negative (Negative) Urine Color Urine Appearance (Clear) Urine pH (4.5-7.5) Ur Specific [place] (1.000-1.030) Urine Protein (Negative) Urine Glucose (UA) (Negative) Urine Ketones (Negative) Urine Blood (Negative) Urine Nitrite (Negative) Urine Bilirubin (Negative) Urine Urobilinogen (Negative) Ur Leukocyte Esterase (Negative) Urine WBC (Auto) (0-5) /hpf Urine RBC (Auto) (0-2) /hpf U Hyaline Cast (Auto) (0-2) /lpf U Epithel Cells (Auto) (0-2) /hpf Urine Bacteria (Auto) (None Seen) Nasal Screen MRSA (PCR) (Negative) Medications Administered Current Inpatient Medications Ceftriaxone Sodium (Rocephin) 2,000 mg in 50 mls @ 100 mls/hr IV Q24H ROSA ELENA Stop: 08/26/24 15:59 Acetaminophen (Ofirmev) 1,000 mg in 100 mls @ 400 mls/hr IV Q8H PRN PRN Reason: Pain or Fever Stop: 08/21/24 22:39 Last Admin: 08/19/24 07:37 Dose: 400 mls/hr Doxycycline Hyclate 100 mg/ (Dextrose) 100 mls @ 50 mls/hr IV Q12H ROSA ELENA Stop: 08/26/24 07:59 Potassium Chloride (K Malcolm / Wtr) 10 meq in 100 mls @ 100 mls/hr IV Q1H ROSA ELENA Stop: 08/19/24 09:59
[2024-08-19] MEDS: POTASSIUM CHLORIDE / WTR 10 MEQ/100 ML PLCT IV SCH (08:46)
[2024-08-19] MEDS: DOXYCYCLINE HYCLATE 100 MG in DEXTROSE 5% MINI-B 100 ML IV SCH (09:08)
--- NOTE | 2024-08-19 09:40 | Surgery Progress Note ---
Date of Service August 19, 2024 Assessment & Plan (1) SBO (small bowel obstruction): Plan: Her CT images and results were personally viewed and interpreted by myself She does have a large abdominal wall hernia with dilated bowel consistent with an obstruction within her pannus She remains afebrile without tachycardia and no leukocytosis and her abdominal pain is resolved since NG tube placement There is no plans for any surgical intervention at this time Would continue her NG tube and n.p.o. status at this time If the patient would require an operation, she should be transferred to a tertiary care center due to her morbid obesity and multiple hernia repairs in the past Surgery will follow (2) Ventral hernia with bowel obstruction: Admission and Anticipated Discharge Date Admission Date: August 18, 2024 Subjective Patient seen and examined. Denies abdominal pain. Denies nausea or vomiting. Feels better after NG tube placement. Review of Systems Constitutional: no fever and no chills Eyes: no blind spots and no corrective lenses Ear, Nose, Mouth, Throat: no ear pain and no hearing loss Respiratory: no cough and no dyspnea Cardiovascular: no chest pain and no dyspnea on exertion Gastrointestinal: no abdominal pain, no nausea and no vomiting Musculoskeletal: no back pain and no neck pain Neurologic: no gait abnormality Psychiatric: no behavioral changes and no depression Physical Exam Constitutional: WD/WN, vitals as above Eyes: PERRL, conjunctivae normal, anicteric sclerae Neck: trachea midline, no thyromegaly Respiratory: normal respiratory effort, lungs clear to auscultation Cardiovascular: RRR, no murmur, no edema Gastrointestinal (Abdomen): Inspection/Auscultation: abdomen normal to inspection; abdomen not distended Percussion/Palpation: abdomen soft; abdomen nontender and no guarding Musculoskeletal: no cyanosis or clubbing, extremities motor strength 5/5 Skin: no rashes, warm and dry Neurologic: PERRL, EOMI, accommodation nl, no face palsy, no dysarthria Psychiatric: A+Ox3, euthymic affect Results & Data Vital Signs (Past 12 Hours) Vital Signs Temp Pulse Pulse Resp BP Pulse Ox O2 Del Method 08/19/24 08:24 36.4 C L 80 16 117/77 95 Room Air 08/19/24 07:15 74 08/19/24 03:53 36.6 C 80 16 115/64 92 Nasal Cannula 08/18/24 23:15 36.6 C 82 18 114/64 90 Nasal Cannula O2 Flow Rate 08/19/24 08:24 08/19/24 07:15 08/19/24 03:53 2 08/18/24 23:15 2 PG Care Time/CCT Total # of Minutes Spent Total Time Spent with Patient: Total time spent is greater than 50% in coordination of care (as documented) at patient's floor/unit and/or counseling patient: Coding Level of Care Code 49298 SUB INP/OBS CARE 235MIN Diagnoses SBO (small bowel obstruction) K56.609 Ventral hernia with bowel obstruction K43.6
[2024-08-19] MEDS: PANTOprazole 40 MG/10 ML SYR IV SCH (10:52)
[2024-08-19] MEDS: D5W AND 1/2NSS + 20MEQ KCL 20 MEQ/1,000 ML BAG IV SCH (12:55)
[2024-08-19] MEDS: cefTRIAXone SODIUM 2,000 MG/50 ML BAG IV SCH (16:31)
[2024-08-19] MEDS: FAMOTIDINE 20MG IV PUSH 20 MG/5 ML SYR IV STA (22:06)
[2024-08-19] MEDS: CHLORASEPTIC (PHENOL) 1.4% SOLN 180 ML BTL MT PRN (22:06)
[2024-08-20] MEDS: HYDROmorphone INJ 0.5 MG/0.5 ML SYR IV STA (02:27)
[2024-08-20 06:23] LABS: Hematocrit (blood only) 39.4 % (37.0-47.0); Hemoglobin 11.8 g/dl (12.0-16.0); Mean Corpuscular Hemoglobin 25.7 pg (25.0-34.0); Mean Corpuscular Hgb Conc 29.9 g/dL (32.0-36.0); Mean Corpuscular Volume 85.7 fL (80.0-100.0); Mean Platelet Volume 10.6 fL (9.4-12.4); Platelet Count 219 K/uL (130-400); RDW Coefficient of Variation 15.3 % (11.5-14.5); RDW Standard Deviation 47.7 fL (36.4-46.3); White Blood Count 5.36 K/ul (4.8-10.8)
[2024-08-20 06:40] LABS: BUN Creatinine Ratio 25.5 (10-20); Calcium 8.8 mg/dl (8.6-10.3); Creatinine Clr Calc Pharmacy 210.3 ml/min; Phosphorus 3.1 mg/dl (2.5-4.9); Potassium 3.5 mmol/L (3.5-5.1)
--- NOTE | 2024-08-20 10:08 | Hospitalist Progress Note ---
Date of Service August 20, 2024 Assessment & Plan (1) SBO (small bowel obstruction): Plan: Presents w/ nausea, vomiting Last BM AM (08/18) on CT - Small bowel obstruction which is likely high-grade with transition point present within the patient's large bowel filled abdominal wall hernia with pannus. NGT placed in ED -> now removed Now pt is passing flatus and abdominal pain resolved NPO -> will try clear liquids IVF General surgery consulted - cont. current management monitor electrolytes, and replace as needed On admission hypokalemic K 3.3 - replace and cont. to monitor (2) Abdominal wall cellulitis: Plan: On CT - Cellulitis of the pannus without abscess. Given ceftriaxone in ED, will continue, added doxy pt feels abd. wall skin feels better Hx of asthma uses albuterol inh prn currently not wheezing, not short of breath Hx of DVT had diag of DVT after hernia surg. repair, no longer on anticoagulation will use heparin subq Admission and Anticipated Discharge Date Admission Date: August 18, 2024 Subjective Pt seen in follow up of SBO, hx of several abd. surgeries / hernia repairs, BMI 80 NGT placed in ED , now removed Currently sitting up in bed in NAD Overall pt reports feeling much better, abdominal pain resolved, passing flatus, no BM denies any chest pain, shortness of breath seen by surgery advanced to clear liquids Review of Systems Review of Systems: All systems reviewed & are unremarkable except as noted in Subjective Physical Exam Physical Exam: Constitutional: + morbidly obese F in NAD, w/ NGT Eyes: PERRL, conjunctiva e normal, anicteri c sclerae ENMT: external ear and n ose normal Neck: + short neck Respiratory: normal respiratory effort, lungs carlos ar to auscultation Cardiovascular: RRR, no murmur, no edema Chest (Breasts): Chest: normal insp ection of chest Gastrointestinal ( Abdomen): + obese abdomen w/ large pannus Musculoskeletal: moves extremities , no LE edema Skin: warm, dry skin, e rythema of lower p annus Neurologic: PERRL, EOMI, no fa ce palsy, no dysar thria, moves extre mities Psychiatric: A+Ox3, euthymic af fect Results & Data Results & Data Vital Signs (Past 12 Hours) Vital Signs Temp Pulse Resp BP Pulse Ox O2 Del Method O2 Flow Rate 08/20/24 08:16 36.5 C 82 17 158/92 H 94 Nasal Cannula 2 08/20/24 04:00 36.6 C 72 20 133/83 93 Nasal Cannula 2 08/20/24 00:07 36.6 C 77 20 156/84 H 91 Nasal Cannula 2 Laboratory Results 08/20/24 Range/Units 05:32 WBC 5.36 (4.8-10.8) K/ul RBC 4.60 (4.20-5.40) M/uL Hgb 11.8 L (12.0-16.0) g/dl Hct 39.4 (37.0-47.0) % MCV 85.7 (80.0-100.0) fL MCH 25.7 (25.0-34.0) pg MCHC 29.9 L (32.0-36.0) g/dL RDW Std Deviation 47.7 H (36.4-46.3) fL RDW Coeff of [place] 15.3 H (11.5-14.5) % Plt Count 219 (130-400) K/uL MPV 10.6 (9.4-12.4) fL Sodium 139 (136-145) mmol/L Potassium 3.5 (3.5-5.1) mmol/L Chloride 100 (98-107) mmol/L Carbon Dioxide 33 H (21-32) mmol/L Anion Gap 6 (3-11) BUN 14 (6-23) mg/dl Creatinine 0.55 L (0.6-1.2) mg/dl Est Cr Clr Drug Dosing 210.3 ml/min eGFR 116.56 BUN/Creatinine Ratio 25.5 H (10-20) Glucose 129 H (70-99(Fasting)) mg/dl Calcium 8.8 (8.6-10.3) mg/dl Phosphorus 3.1 (2.5-4.9) mg/dl Magnesium 2.0 (1.7-2.4) mg/dl Medications Administered Current Inpatient Medications Ceftriaxone Sodium (Rocephin) 2,000 mg in 50 mls @ 100 mls/hr IV Q24H [facility] ELENA Stop: 08/26/24 15:59 Last Infusion: 08/19/24 18:18 Dose: Infused Acetaminophen (Ofirmev) 1,000 mg in 100 mls @ 400 mls/hr IV Q8H PRN PRN Reason: Pain or Fever Stop: 08/21/24 22:39 Last Infusion: 08/19/24 20:50 Dose: Infused Doxycycline Hyclate 100 mg/ (Dextrose) 100 mls @ 50 mls/hr IV Q12H ROS[facility] ELENA Stop: 08/26/24 08:59 Last Infusion: 08/20/24 10:04 Dose: 0 mls/hr Pantoprazole Sodium (Protonix) 40 mg in 10 mls @ 5 mls/min IV DAILY [facility] Stop: 09/18/24 10:14 Last Admin: 08/20/24 10:04 Dose: 5 mls/min Potassium Chloride/Dextrose/Sod Cl (D5w And 1/2nss + 20meq Kcl) 20 meq in 1,000 mls @ 80 mls/hr IV .[id number] [facility] Stop: 08/20/24 12:14 Last Admin: 08/20/24 01:57 Dose: 80 mls/hr Phenol (Chloraseptic (Phenol) 1.4% Soln 180 Ml Btl) 1 sprays MT Q6H PRN PRN Reason: Sore Throat Stop: 09/18/24 20:13 Last Admin: 08/19/24 22:06 Dose: 1 sprays
[2024-08-20] MEDS: POTASSIUM CHLORIDE / WTR 10 MEQ/100 ML PLCT IV SCH (10:48)
--- NOTE | 2024-08-20 11:07 | Surgery Progress Note ---
Date of Service August 20, 2024 Assessment & Plan (1) SBO (small bowel obstruction): Plan: Her CT images and results were personally viewed and interpreted by myself She does have a large abdominal wall hernia with dilated bowel consistent with an obstruction within her pannus She remains afebrile without tachycardia and no leukocytosis and her abdominal pain is resolved Advance to clear liquid diet Continuing to follow (2) Ventral hernia with bowel obstruction: Admission and Anticipated Discharge Date Admission Date: August 18, 2024 Subjective feeling much better today. NG tube has been removed. She is passing flatus. She has had a bowel movement. Physical Exam Gastrointestinal (Abdomen): Inspection/Auscultation: abdomen normal to inspection; abdomen not distended Percussion/Palpation: abdomen soft; abdomen nontender and no guarding Results & Data Vital Signs (Past 12 Hours) Vital Signs Temp Pulse Pulse Resp BP Pulse Ox O2 Del Method 08/20/24 08:16 36.5 C 82 17 158/92 H 94 Nasal Cannula 08/20/24 05:43 85 08/20/24 04:00 36.6 C 72 20 133/83 93 Nasal Cannula 08/20/24 00:07 36.6 C 77 20 156/84 H 91 Nasal Cannula O2 Flow Rate 08/20/24 08:16 2 08/20/24 05:43 08/20/24 04:00 2 08/20/24 00:07 2
[2024-08-20] MEDS: SODIUM CHLORIDE 0.9% 500 ML IV ONE (11:55)
[2024-08-20] MEDS: HEPARIN SOD 5,000 UNIT/0.5 ML VIAL SQ SCH (17:10)
[2024-08-20] MEDS: POTASSIUM CHLORIDE CRTAB 20 MEQ TABCR PO STA (20:35)
[2024-08-21 06:18] LABS: Hematocrit (blood only) 40.7 % (37.0-47.0); Hemoglobin 12.3 g/dl (12.0-16.0); Mean Corpuscular Hemoglobin 25.7 pg (25.0-34.0); Mean Corpuscular Hgb Conc 30.2 g/dL (32.0-36.0); Mean Platelet Volume 10.8 fL (9.4-12.4); Platelet Count 237 K/uL (130-400); RDW Coefficient of Variation 14.8 % (11.5-14.5); Red Blood Count 4.79 M/uL (4.20-5.40); White Blood Count 5.55 K/ul (4.8-10.8)
[2024-08-21 06:33] LABS: BUN Creatinine Ratio 18.8 (10-20); Creatinine Clr Calc Pharmacy 242.7 ml/min; Magnesium 1.9 mg/dl (1.7-2.4); Phosphorus 3.4 mg/dl (2.5-4.9)
[2024-08-21] MEDS: D5W AND 1/2NSS 1,000 ML IV SCH (07:07)
--- NOTE | 2024-08-21 10:47 | Surgery Progress Note ---
Date of Service August 21, 2024 Assessment & Plan (1) SBO (small bowel obstruction): Plan: Her CT images and results were personally viewed and interpreted by myself She does have a large abdominal wall hernia with dilated bowel consistent with an obstruction within her pannus She remains afebrile without tachycardia and no leukocytosis and her abdominal pain is resolved Advance to Full liquid diet Continuing to follow (2) Ventral hernia with bowel obstruction: Admission and Anticipated Discharge Date Admission Date: August 18, 2024 Subjective feeling well. Continuing to pass flatus. No nausea or vomiting. Tolerating clears. Physical Exam Gastrointestinal (Abdomen): Inspection/Auscultation: abdomen normal to inspection; abdomen not distended Percussion/Palpation: abdomen soft; abdomen nontender and no guarding Results & Data Vital Signs (Past 12 Hours) Vital Signs Temp Pulse Pulse Resp BP BP Pulse Ox 08/21/24 08:07 36.4 C L 65 20 114/64 94 08/21/24 07:33 08/21/24 05:37 84 08/21/24 04:22 36.6 C 82 20 131/76 92 08/21/24 00:55 36.5 C 67 20 124/76 93 O2 Del Method O2 Flow Rate 08/21/24 08:07 Room Air 08/21/24 07:33 Nasal Cannula 2 08/21/24 05:37 08/21/24 04:22 Room Air 08/21/24 00:55 Room Air
--- NOTE | 2024-08-21 15:57 | Hospitalist Progress Note ---
Date of Service August 21, 2024 Assessment & Plan (1) SBO (small bowel obstruction): Plan: Presents w/ nausea, vomiting Last BM AM (08/18) on CT - Small bowel obstruction which is likely high-grade with transition point present within the patient's large bowel filled abdominal wall hernia with pannus. NGT placed in ED -> now removed Now pt is passing flatus and abdominal pain resolved diet - advanced to full liquids IVF General surgery consulted - cont. current management monitor electrolytes, and replace as needed On admission hypokalemic K 3.3 - replace and cont. to monitor (2) Abdominal wall cellulitis: Plan: On CT - Cellulitis of the pannus without abscess. Given ceftriaxone in ED, will continue, added doxy pt feels abd. wall skin feels better Hx of asthma uses albuterol inh prn currently not wheezing, not short of breath Hx of DVT had diag of DVT after hernia surg. repair, no longer on anticoagulation will use heparin subq Admission and Anticipated Discharge Date Admission Date: August 18, 2024 Subjective Pt seen in follow up of SBO, hx of several abd. surgeries / hernia repairs, BMI 80 NGT placed in ED , now removed Currently sitting up in chair in NAD Overall pt reports feeling much better, abdominal pain resolved, passing flatus, no BM denies any chest pain, shortness of breath seen by surgery advanced to full liquids today Review of Systems Review of Systems: All systems reviewed & are unremarkable except as noted in Subjective Physical Exam Physical Exam: Constitutional: + morbidly obese F in NAD, w/ NGT Eyes: PERRL, conjunctiva e normal, anicteri c sclerae ENMT: external ear and n ose normal Neck: + short neck Respiratory: normal respiratory effort, lungs carlos ar to auscultation Cardiovascular: RRR, no murmur, no edema Chest (Breasts): Chest: normal insp ection of chest Gastrointestinal ( Abdomen): + obese abdomen w/ large pannus Musculoskeletal: moves extremities , no LE edema Skin: warm, dry skin, e rythema of lower p annus Neurologic: PERRL, EOMI, no fa ce palsy, no dysar thria, moves extre mities Psychiatric: A+Ox3, euthymic af fect Results & Data Results & Data Vital Signs (Past 12 Hours) Vital Signs Temp Pulse Pulse Resp BP BP Pulse Ox 08/21/24 13:00 83 08/21/24 11:52 36.6 C 73 20 118/78 95 08/21/24 08:07 36.4 C L 65 20 114/64 94 08/21/24 07:33 08/21/24 05:37 84 08/21/24 04:22 36.6 C 82 20 131/76 92 O2 Del Method O2 Flow Rate 08/21/24 13:00 08/21/24 11:52 Room Air 08/21/24 08:07 Room Air 08/21/24 07:33 Nasal Cannula 2 08/21/24 05:37 08/21/24 04:22 Room Air Laboratory Results 08/21/24 Range/Units 05:25 WBC 5.55 (4.8-10.8) K/ul RBC 4.79 (4.20-5.40) M/uL Hgb 12.3 (12.0-16.0) g/dl Hct 40.7 (37.0-47.0) % MCV 85.0 (80.0-100.0) fL MCH 25.7 (25.0-34.0) pg MCHC 30.2 L (32.0-36.0) g/dL RDW Std Deviation 46.0 (36.4-46.3) fL RDW Coeff of [place] 14.8 H (11.5-14.5) % Plt Count 237 (130-400) K/uL MPV 10.8 (9.4-12.4) fL Sodium 137 (136-145) mmol/L Potassium 4.0 (3.5-5.1) mmol/L Chloride 98 (98-107) mmol/L Carbon Dioxide 35 H (21-32) mmol/L Anion Gap 4 (3-11) BUN 9 (6-23) mg/dl Creatinine 0.48 L (0.6-1.2) mg/dl Est Cr Clr Drug Dosing 242.7 ml/min eGFR 120.45 BUN/Creatinine Ratio 18.8 (10-20) Glucose 123 H (70-99(Fasting)) mg/dl Calcium 9.0 (8.6-10.3) mg/dl Phosphorus 3.4 (2.5-4.9) mg/dl Magnesium 1.9 (1.7-2.4) mg/dl Medications Administered Current Inpatient Medications Heparin Sodium (Porcine) (Heparin Sod 5,000 Unit/0.5 Ml Vial) 5,000 units SQ Q8 ROSA ELENA Stop: 09/19/24 13:59 Last Admin: 08/21/24 14:51 Dose: 5,000 units Ceftriaxone Sodium (Rocephin) 2,000 mg in 50 mls @ 100 mls/hr IV Q24H ROSA ELENA Stop: 08/26/24 15:59 Last Infusion: 08/21/24 15:57 Dose: Infused Acetaminophen (Ofirmev) 1,000 mg in 100 mls @ 400 mls/hr IV Q8H PRN PRN Reason: Pain or Fever Stop: 08/21/24 22:39 Last Infusion: 08/19/24 20:50 Dose: Infused Doxycycline Hyclate 100 mg/ (Dextrose) 100 mls @ 50 mls/hr IV Q12H ROSA ELENA Stop: 08/26/24 08:59 Last Infusion: 08/21/24 13:08 Dose: Infused Pantoprazole Sodium (Protonix) 40 mg in 10 mls @ 5 mls/min IV DAILY [facility] Stop: 09/18/24 10:14 Last Admin: 08/21/24 09:02 Dose: 5 mls/min Phenol (Chloraseptic (Phenol) 1.4% Soln 180 Ml Btl) 1 sprays MT Q6H PRN PRN Reason: Sore Throat Stop: 09/18/24 20:13 Last Admin: 08/19/24 22:06 Dose: 1 sprays
[2024-08-22 06:09] LABS: Hematocrit (blood only) 37.6 % (37.0-47.0); Hemoglobin 11.8 g/dl (12.0-16.0); Mean Corpuscular Hemoglobin 26.3 pg (25.0-34.0); Mean Corpuscular Hgb Conc 31.4 g/dL (32.0-36.0); Mean Corpuscular Volume 83.7 fL (80.0-100.0); Mean Platelet Volume 10.5 fL (9.4-12.4); Platelet Count 219 K/uL (130-400); RDW Coefficient of Variation 14.7 % (11.5-14.5); RDW Standard Deviation 44.9 fL (36.4-46.3); Red Blood Count 4.49 M/uL (4.20-5.40); White Blood Count 5.19 K/ul (4.8-10.8)
[2024-08-22 06:28] LABS: BUN Creatinine Ratio 14.6 (10-20); Calcium 8.7 mg/dl (8.6-10.3); Creatinine Clr Calc Pharmacy 277.3 ml/min; Magnesium 1.9 mg/dl (1.7-2.4); Phosphorus 3.8 mg/dl (2.5-4.9); Potassium 3.3 mmol/L (3.5-5.1)
--- NOTE | 2024-08-22 10:26 | Hospitalist Progress Note ---
Date of Service August 22, 2024 Assessment & Plan (1) SBO (small bowel obstruction): Plan: Presents w/ nausea, vomiting Last BM AM (08/18) on CT - Small bowel obstruction which is likely high-grade with transition point present within the patient's large bowel filled abdominal wall hernia with pannus. NGT placed in ED -> now removed Now pt is passing flatus and abdominal pain resolved diet - advanced to full liquids and tolerating IVF General surgery consulted - cont. current management no BM yet monitor electrolytes, and replace as needed On admission hypokalemic K 3.3 - replace and cont. to monitor K today (08/22) 3.3 (2) Abdominal wall cellulitis: Plan: On CT - Cellulitis of the pannus without abscess. Given ceftriaxone in ED, will continue, added doxy pt feels abd. wall skin feels better Hx of asthma uses albuterol inh prn currently not wheezing, not short of breath Hx of DVT had diag of DVT after hernia surg. repair, no longer on anticoagulation cont. heparin subq for dvt ppx Admission and Anticipated Discharge Date Admission Date: August 18, 2024 Subjective Pt seen in follow up of SBO, hx of several abd. surgeries / hernia repairs, BMI 80 NGT placed in ED , now removed Currently sitting up in chair in NAD Overall pt reports feeling much better, abdominal pain resolved, passing flatus, no BM denies any chest pain, shortness of breath seen by surgery advanced to full liquids yesterday and tolerating replace K Review of Systems Review of Systems: All systems reviewed & are unremarkable except as noted in Subjective Physical Exam Physical Exam: Constitutional: + morbidly obese F in NAD, w/ NGT Eyes: PERRL, conjunctiva e normal, anicteri c sclerae ENMT: external ear and n ose normal Neck: + short neck Respiratory: normal respiratory effort, lungs carlos ar to auscultation Cardiovascular: RRR, no murmur, no edema Chest (Breasts): Chest: normal insp ection of chest Gastrointestinal ( Abdomen): + obese abdomen w/ large pannus Musculoskeletal: moves extremities , no LE edema Skin: warm, dry skin, e rythema of lower p annus Neurologic: PERRL, EOMI, no fa ce palsy, no dysar thria, moves extre mities Psychiatric: A+Ox3, euthymic af fect Results & Data Results & Data Vital Signs (Past 12 Hours) Vital Signs Temp Pulse Pulse Resp BP Pulse Ox O2 Del Method 08/22/24 08:55 94 Room Air 08/22/24 08:16 36.8 C 59 L 20 123/78 91 Room Air 08/22/24 07:17 36.6 C 59 L 20 108/67 91 Room Air 08/22/24 06:39 73 08/22/24 04:36 36.6 C 71 20 119/71 92 Room Air 08/22/24 00:22 36.5 C 72 20 114/59 L 94 Room Air 08/22/24 00:00 76 Laboratory Results 08/22/24 Range/Units 05:33 WBC 5.19 (4.8-10.8) K/ul RBC 4.49 (4.20-5.40) M/uL Hgb 11.8 L (12.0-16.0) g/dl Hct 37.6 (37.0-47.0) % MCV 83.7 (80.0-100.0) fL MCH 26.3 (25.0-34.0) pg MCHC 31.4 L (32.0-36.0) g/dL RDW Std Deviation 44.9 (36.4-46.3) fL RDW Coeff of [place] 14.7 H (11.5-14.5) % Plt Count 219 (130-400) K/uL MPV 10.5 (9.4-12.4) fL Sodium 137 (136-145) mmol/L Potassium 3.3 L (3.5-5.1) mmol/L Chloride 102 (98-107) mmol/L Carbon Dioxide 29 (21-32) mmol/L Anion Gap 6 (3-11) BUN 6 (6-23) mg/dl Creatinine 0.41 L (0.6-1.2) mg/dl Est Cr Clr Drug Dosing 277.3 ml/min eGFR 125.12 BUN/Creatinine Ratio 14.6 (10-20) Glucose 124 H (70-99(Fasting)) mg/dl Calcium 8.7 (8.6-10.3) mg/dl Phosphorus 3.8 (2.5-4.9) mg/dl Magnesium 1.9 (1.7-2.4) mg/dl Medications Administered Current Inpatient Medications Heparin Sodium (Porcine) (Heparin Sod 5,000 Unit/0.5 Ml Vial) 5,000 units SQ Q8 ROSA ELENA Stop: 09/19/24 13:59 Last Admin: 08/22/24 05:53 Dose: 5,000 units Ceftriaxone Sodium (Rocephin) 2,000 mg in 50 mls @ 100 mls/hr IV Q24H ROSA ELENA Stop: 08/26/24 15:59 Last Infusion: 08/21/24 15:57 Dose: Infused Doxycycline Hyclate 100 mg/ (Dextrose) 100 mls @ 50 mls/hr IV Q12H ROSA ELENA Stop: 08/26/24 08:59 Last Admin: 08/22/24 08:27 Dose: 50 mls/hr Pantoprazole Sodium (Protonix) 40 mg in 10 mls @ 5 mls/min IV DAILY [facility] Stop: 09/18/24 10:14 Last Admin: 08/22/24 08:27 Dose: 5 mls/min Phenol (Chloraseptic (Phenol) 1.4% Soln 180 Ml Btl) 1 sprays MT Q6H PRN PRN Reason: Sore Throat Stop: 09/18/24 20:13 Last Admin: 08/19/24 22:06 Dose: 1 sprays
[2024-08-22] MEDS: POTASSIUM CHLORIDE CRTAB 20 MEQ TABCR PO STA (10:49)
--- NOTE | 2024-08-22 10:49 | Surgery Progress Note ---
<Statement entered by John Peña DO - 08/22/24 10:56> I have seen this patient with the surgical PA and I agree with this plan Date of Service August 22, 2024 Assessment & Plan (1) Ventral hernia with bowel obstruction: Plan: Pt here with SBO within ventral hernia in pannus she is feeling better. denies pain/n/v. she is passing gas tolerating fulls without issues, will advance to low fat/low fiber today If does well potential d/c tomorrow Admission and Anticipated Discharge Date Admission Date: August 18, 2024 Subjective Patient reports feeling well. No nausea/vomiting/pain. She is tolerating full liquids. She is passing gas. Physical Exam Physical Exam: awake/alert, sitting in chair Results & Data Vital Signs (Past 12 Hours) Vital Signs Temp Pulse Pulse Resp BP Pulse Ox O2 Del Method 08/22/24 08:55 94 Room Air 08/22/24 08:16 98.2 F 59 L 20 123/78 91 Room Air 08/22/24 07:17 97.9 F 59 L 20 108/67 91 Room Air 08/22/24 06:39 73 08/22/24 04:36 97.9 F 71 20 119/71 92 Room Air 08/22/24 00:22 97.7 F 72 20 114/59 L 94 Room Air 08/22/24 00:00 76 PG Care Time/CCT Total # of Minutes Spent Total Time Spent with Patient: Total time spent is greater than 50% in coordination of care (as documented) at patient's floor/unit and/or counseling patient: Coding Level of Care Code 36636 SUB INP/OBS CARE 06/18MIN Diagnoses Ventral hernia with bowel obstruction K43.6
[2024-08-23 02:30] VITALS: RESP 16
[2024-08-23 06:33] LABS: Hematocrit (blood only) 37.8 % (37.0-47.0); Hemoglobin 11.9 g/dl (12.0-16.0); Mean Corpuscular Hemoglobin 26.2 pg (25.0-34.0); Mean Corpuscular Hgb Conc 31.5 g/dL (32.0-36.0); Mean Corpuscular Volume 83.3 fL (80.0-100.0); Mean Platelet Volume 10.7 fL (9.4-12.4); Platelet Count 233 K/uL (130-400); RDW Coefficient of Variation 14.7 % (11.5-14.5); RDW Standard Deviation 44.7 fL (36.4-46.3); Red Blood Count 4.54 M/uL (4.20-5.40)
[2024-08-23 07:09] LABS: BUN Creatinine Ratio 18.8 (10-20); Calcium 8.6 mg/dl (8.6-10.3); Creatinine Clr Calc Pharmacy 236.9 ml/min; Magnesium 1.9 mg/dl (1.7-2.4); Phosphorus 3.8 mg/dl (2.5-4.9); Potassium 4.1 mmol/L (3.5-5.1)
--- NOTE | 2024-08-23 07:40 | Surgery Progress Note ---
<Statement entered by John Peña DO - 08/23/24 11:16> I have seen and examined this patient and I agree with this plan. We discussed her poor surgical candidacy for abdominal hernia repair and poor outcome with her weight. She is aware that this repair is not surgically recommended unless she became an emergency with entrapped bowel that will not reduce. She expressed understanding of this. Date of Service August 23, 2024 Assessment & Plan (1) Ventral hernia with bowel obstruction: Plan: Pt here with SBO within ventral hernia in pannus she is feeling better. denies pain/n/v. she is passing gas and had a BM today she has been tolerating a low fiber diet without issues reports follow up has been made for her with [facility] end of this wk appears SBO is resolved, may dispo from our standpoint today Admission and Anticipated Discharge Date Admission Date: August 18, 2024 Subjective The patient reports feeling well. Tolerating low fiber diet. No abdominal pain, nausea/vomiting. She is passing gas and said had a BM this AM. Physical Exam Physical Exam: awake/alert, no distress Gastrointestinal (Abdomen): Inspection/Auscultation: abdomen not distended Percussion/Palpation: abdomen soft; abdomen nontender + large pannus Results & Data Vital Signs (Past 12 Hours) Vital Signs Temp Pulse Pulse Resp BP BP Pulse Ox 08/23/24 07:35 97.7 F 76 16 137/84 65 L 08/23/24 07:34 78 08/23/24 02:05 97.9 F 82 16 150/87 H 91 08/22/24 22:41 97.9 F 68 18 151/80 H 95 08/22/24 21:53 72 08/22/24 20:15 O2 Del Method 08/23/24 07:35 Room Air 08/23/24 07:34 08/23/24 02:05 Room Air 08/22/24 22:41 Room Air 08/22/24 21:53 08/22/24 20:15 Room Air PG Care Time/CCT Total # of Minutes Spent Total Time Spent with Patient: Total time spent is greater than 50% in coordination of care (as documented) at patient's floor/unit and/or counseling patient: Coding Level of Care Code 76631 SUB INP/OBS CARE 06/18MIN Diagnoses Ventral hernia with bowel obstruction K43.6
--- NOTE | 2024-08-23 09:29 | Discharge Summary ---
Discharge Summary Date of Service August 23, 2024 Principal Dx & Hospital Course #1 = Principal Diagnosis (1) SBO (small bowel obstruction): (2) Abdominal wall cellulitis: Plan Patient was admitted to the hospital with small bowel obstruction most likely due to ventral hernia. Patient had an NG tube placed and given IV fluid resuscitation. General surgery consultation was also obtained. She was also treated with IV Rocephin and doxycycline for an abdominal pannus cellulitis. Through the course of her hospitalization she steadily improved. Bowel sounds improved. She started to pass flatus. NG tube was removed. Patient's diet was advanced. She tolerated diet and had a bowel movement. On the day of discharge her vital signs are stable. Had tolerated a regular breakfast. Had a bowel movement already this morning. Patient received 5 days of IV antibiotics for abdominal wall cellulitis. This is an adequate length of treatment. Cellulitis significantly improved. Does not need any additional antibiotics at discharge. She will follow-up with her PCP and potentially coordinate outpatient surgical evaluation for her recurrent small bowel obstruction and her ventral hernia. Notes For Next Care Provider Consider outpatient surgical evaluation [facility] HPI Per Admitting Provider 43 y/o F with hx of asthma, obesity, hx of ovarian abscess, PCOS, hx of ventral hernias repair (3), hx of SBO now presents with nausea/vomiting. Nausea, vomiting started yesterday around 3pm, pt had a BM this AM. No blood in stool or emesis. CT abdomen obtained in ED c/w SBO, and surgery was contacted by ED provider. NGT recommended if persistent nausea/vomiting. Per ED provider NGT was ordered and being placed. WBC normal. Afebrile. Pt now w/ NGT placed w/light green output. Reports already feeling much better. Admission Exam Per Admitting Provider See H&P Discharge Exam Constitutional: Alert, nontoxic HEENT: Mucous membranes moist. Lungs: Clear to auscultation, decreased, no wheezes rales or rhonchi CV: S1-S2, regular Abdomen: Soft, large pendulous abdominal pannus. No tenderness. Redness improved. Normal active bowel sounds, no distention Extremities: No significant edema Neuro: No focal deficits Psych: Cooperative, normal mood Updated Medication List Medication Instructions Recorded Confirmed Type ibuprofen 800 mg tablet 800 mg PO TID PRN Pain 08/18/24 08/18/24 History polyethylene glycol 3350 17 gram 17 g PO DAILY 30 days #30 ea 08/23/24 Rx oral powder packet (Miralax) Hospital Stay Data Consultations 08/18/24 18:16 ED Decision to Admit Stat 08/18/24 18:20 Consult General Surgery Routine Diagnostic Imagining Performed 08/18/24 13:18 CT abd pelvis IV con only Stat Reviewed imaging, laboratory and diagnostic studies. Pertinent findings as below. WBCs picks 0.0 Hemoglobin 11.9 Platelets of 233 Electrolytes within normal range Creatinine 0.48 Urine culture mixed growth Stool BioFire pending Pending Results Patient Have Any Pending Studies at Discharge: No Discharge Instructions Given to Patient (Per Discharging Provider) Discussed with your PCP about outpatient surgery evaluation Total Time Total Time Spent Total Time Spent (In Minutes): 26
[2024-08-23 09:38] LABS: Adenovirus F 40/41 PCR Not Detected (NotDetected); Astrovirus PCR Not Detected (NotDetected); Campylobacter PCR Not Detected (NotDetected); Cryptosporidium PCR Not Detected (NotDetected); Cyclospora cayetanensis PCR Not Detected (NotDetected); Entamoeba histolytica PCR Not Detected (NotDetected); Enteroaggregative E.coli(EAEC) Not Detected (NotDetected); Enteropathogenic E.coli (EPEC) Not Detected (NotDetected); Enterotoxigenic E.coli (ETEC) Not Detected (NotDetected); Giardia lamblia PCR Not Detected (NotDetected); Plesiomonas shigelloides PCR Not Detected (NotDetected); Rotavirus A PCR Not Detected (NotDetected); Salmonella PCR Not Detected (NotDetected); Sapovirus PCR Not Detected (NotDetected); Shiga-like Toxin E.coli (STEC) Not Detected (NotDetected); Shigella/Enteroinvasive E.coli Not Detected (NotDetected); Vibrio cholerae PCR Not Detected (NotDetected); Vibrio species PCR Not Detected (NotDetected); Yersinia enterocolitica PCR Not Detected (NotDetected)
[2024-08-23 09:52] LABS: Norovirus GI/GII PCR DETECTED (NotDetected)
[2024-08-23 11:20] VITALS: PULSE 69; TEMP 97.9; O2SAT 96
[2024-08-23 12:37] VITALS: BP 137/84
== END 2024-08-23 13:35 | disposition home or self-care (01) | DRG 394 ==
LOC: ED 13:04 → 2N 19:01 → SUATTDRO 19:01 → 2N 20:09

== ENCOUNTER 2024-11-23 18:25 | Inpatient (IN) ==
[2024-11-23 19:05] LABS: Hematocrit (blood only) 38.2 % (37.0-47.0); Hemoglobin 12.1 g/dl (12.0-16.0); Immature Granulocytes # (auto) 0.02 K/uL (0.01-0.20); Immature Granulocytes % (auto) 0.2 %; Mean Corpuscular Hemoglobin 26.1 pg (25.0-34.0); Mean Corpuscular Volume 82.5 fL (80.0-100.0); Platelet Count 250 K/uL (130-400); RDW Standard Deviation 43.4 fL (36.4-46.3); Red Blood Count 4.63 M/uL (4.20-5.40); White Blood Count 10.81 K/ul (4.8-10.8)
[2024-11-23 19:29] LABS: Alanine Aminotransferase 11 U/L (7-52); Albumin Globulin Ratio 0.9 (0.9-2); Alkaline Phosphatase 70 U/L (34-104); Bilirubin,Total 0.5 mg/dl (0.2-1.0); Blood Urea Nitrogen 11 mg/dl (6-23); Calcium 9.1 mg/dl (8.6-10.3); Carbon Dioxide 27 mmol/L (21-32); Chloride 102 mmol/L (98-107); Creatinine Clr Calc Pharmacy 222.3 ml/min; Globulin 4.2 gm/dl (2.5-4.0); Glucose 174 mg/dl (70-99(Fasting)); Lipase 11 U/L (11-82); Total Protein 7.8 gm/dl (6.0-8.3)
--- NOTE | 2024-11-23 19:37 | Emergency Department Note ---
Impression & Plan Ventral hernia with bowel obstruction, Abdominal pain, Nausea & vomiting ED Provider Note NAME: BOLA TURK AGE: 44 SEX: F : 1980 ARRIVES VIA: Ambulance INFORMANT: Patient ED PROVIDER(S): Deniz Garcia MD CHIEF COMPLAINT: Abdominal pain, nausea, vomiting PLAN: Disposition: Admit MEDICAL DECISION MAKING: The patient is a pleasant 44-year-old woman with a past medical history of recurrent small bowel obstruction, history of ventral hernia, dyspepsia, morbid obesity who presents to the emergency department via EMS for evaluation of abdominal pain that worsened today with associated nausea and vomiting and no bowel movement for the past day and a half in setting of history of recurrent bowel obstructions. Patient reports she was concerned and wanted to come in early before her symptoms worsened. She denies any urinary symptoms. She denies any fevers, chills, cough, congestion, chest pain or shortness of breath. Patient was admitted to this facility in July-August of this year for small bowel obstruction which resolved with conservative measures including NG tube. On evaluation patient is no distress, afebrile with stable vital signs. She appears clinically dry. Abdomen demonstrates large ventral hernia contained within large pannus. She exhibits mild generalized abdominal tenderness without guarding or rebound. WBC 10.8 K with neutrophilia but no left shift. H/H and platelets within normal limits. Chemistry without metabolic acidosis. BUN/creatinine 21 consistent with patient's clinical appearance. LFTs unremarkable. Lipase is normal. hCG negative. CT of the abdomen pelvis demonstrates evidence of recurrent small bowel obstruction. The Case was discussed with Dave Best, general surgery PA-Nelia with Dr. Macdonald, general surgery on-call. Agrees with plan for admission to medicine service for NG tube and further management. Case was discussed with Dr. Khoury, [facility] hospitalist, who will evaluate the patient for admission. NG tube was placed with acceptable placement on x-ray per my preliminary independent interpretation. Further management per admitting team. Triage Nursing notes reviewed and agree them. Prior/external medical records reviewed Vital Signs: reviewed Differential diagnosis: Appendicitis, ovarian cyst, ovarian torsion, ectopic , TOA, PID, infections, diverticulitis, UTI, obstruction, mesenteric ischemia, aortic pathology, inflammatory bowel disease, renal colic, PUD, pancreatitis, biliary pathology, hernia, volvulus, constipation, as well as other pathologies. ER treatment provided: See below. Diagnostics interpreted by me: Cardiac Monitoring: An order for continuous cardiac monitoring was placed and demonstrated normal sinus rhythm, 86 bpm, no ectopy. Laboratory studies: See below Imaging studies: See below Consultation(s): Dave Best, general surgery REGINE with Dr. Macdonald, general surgery Dr. Khoury, [facility] hospitalist HPI: Per MDM. ROS: See above HPI for pertinent positives & negatives. A total of 10 systems reviewed and were otherwise negative. VITALS:See Below PHYSICAL EXAMINATION: GENERAL: Awake, alert, in no distress, BMI 80.3. HENT: Normocephalic, atraumatic. Oropharynx with dry mucous membranes and otherwise unremarkable. EYES: Normal conjunctiva. Sclera non-icteric. NECK: Supple. No nuchal rigidity. FROM. No JVD. RESPIRATORY: Clear to auscultation. CARDIAC: Regular rate, normal rhythm. Extremities warm and well perfused. Pulses equal. ABDOMEN: Soft, non-distended. Large pannus with ventral hernia with generalized tenderness without guarding or rebound. MUSCULOSKELETAL: Chest examination reveals no tenderness. The back is symmetrical on inspection without obvious abnormality. There is no CVA tenderness to palpation. No joint edema. LOWER EXTREMITIES: Calves are equal size bilaterally and non-tender. No edema. No discoloration. NEURO: Normal sensorium. No sensory or motor deficits noted. SKIN: No rash or jaundice noted. Deniz Garcia MD Past Med/Surg History Problem List (Updated 11/24/24 @ 04:55 by Deniz Garcia MD) Nausea & vomiting (Acute) Cellulitis of abdominal wall (Acute) Ventral hernia with bowel obstruction (Acute) Abdominal wall cellulitis SBO (small bowel obstruction) (Acute) Abdominal pain (Acute) Dyspepsia (Acute) Hyperglycemia (Acute) Lumbar radiculopathy (Acute) Tubo-ovarian abscess (Acute) Medical History Schizophrenia Depression Asthma Seizure Hernia of abdominal wall Morbid obesity Surgical History H/O hernia repair Social History Smoking Status: Never smoker Hx Alcohol Use: No Hx Substance Use: No Preferred Language: Uzbek Communication Ability: Effective Auto Damage Adjuster Required: No Beliefs That Will Affect Care: None marital status details: Current Living Situation: Spouse and Parent Current Living Situation Comment: provides care for her current occupational status: employed current occupation: [employer] Feels Safe at Home: Yes Assistive Devices: None Allergies Allergies Allergy/AdvReac Type Severity Reaction Status Date / Time Sulfa (Sulfonamide Allergy Intermediate ? Verified 11/23/24 18:34 Antibiotics) Home Meds Home Medications Medication Instructions Recorded Confirmed No Known Home Medications 11/23/24 11/23/24 Results & Data (ED) Vital Signs Vital Signs - 24 hr 11/23/24 18:31 11/23/24 18:44 11/23/24 19:03 Temperature 36.8 C Temperature Source Oral Pulse Rate 86 88 Pulse Rate [Finger] Pulse Rhythm [Finger] Pulse Strength [Finger] Respiratory Rate 20 Respiratory Effort / Characteristics Non-Labored Spontaneous Respiratory Depth Normal Respiratory Pattern Regular Blood Pressure 159/89 H Blood Pressure [Right Arm] Blood Pressure Mean 112 Blood Pressure Mean [Right Arm] Blood Pressure Position [Right Arm] Pulse Oximetry 96 97 Oxygen Delivery Method Room Air Room Air Sepsis Recent Fever Within 48 Hours No Sepsis New/Unexplained Change in Mental Status N/A Sepsis Action Taken by Nursing No Action Required 11/23/24 20:30 11/23/24 22:00 11/23/24 22:44 Temperature Temperature Source Pulse Rate 83 Pulse Rate [Finger] 60 84 Pulse Rhythm [Finger] Regular Regular Pulse Strength [Finger] Normal Normal Respiratory Rate 20 20 Respiratory Effort / Characteristics Non-Labored Respiratory Depth Normal Normal Respiratory Pattern Blood Pressure Blood Pressure [Right Arm] 133/59 L 129/62 Blood Pressure Mean Blood Pressure Mean [Right Arm] 83 84 Blood Pressure Position [Right Arm] Lying Pulse Oximetry 97 98 Oxygen Delivery Method Room Air Room Air Sepsis Recent Fever Within 48 Hours Sepsis New/Unexplained Change in Mental Status Sepsis Action Taken by Nursing Laboratory Data Attestation: I reviewed the patient's lab results. 11/23/24 18:53 11/23/24 19:47 Lab Results 11/23/24 11/23/24 Range/Units 18:53 19:47 WBC 10.81 H (4.8-10.8) K/ul RBC 4.63 (4.20-5.40) M/uL Hgb 12.1 (12.0-16.0) g/dl Hct 38.2 (37.0-47.0) % MCV 82.5 (80.0-100.0) fL MCH 26.1 (25.0-34.0) pg MCHC 31.7 L (32.0-36.0) g/dL RDW Std Deviation 43.4 (36.4-46.3) fL RDW Coeff of [place] 14.7 H (11.5-14.5) % Plt Count 250 (130-400) K/uL MPV 10.6 (9.4-12.4) fL Immature Gran % (Auto) 0.2 % Neut % (Auto) 79.4 % Lymph % (Auto) 14.2 % [place] % (Auto) 5.3 % Eos % (Auto) 0.5 % Baso % (Auto) 0.4 % Neut # (Auto) 8.59 H (1.40-6.50) K/uL Lymph # (Auto) 1.54 (1.20-3.40) K/uL [place] # (Auto) 0.57 (0.11-0.59) K/uL Eos # (Auto) 0.05 (0.00-0.50) K/uL Baso # (Auto) 0.04 (0.00-0.20) K/uL Immature Gran # (Auto) 0.02 (0.01-0.20) K/uL PT Cancelled 11.5 INR Cancelled 1.1 Sodium TNP 137 Potassium TNP 3.9 Chloride 102 (98-107) mmol/L Carbon Dioxide 27 (21-32) mmol/L Anion Gap TNP BUN 11 (6-23) mg/dl Creatinine 0.52 L (0.6-1.2) mg/dl Est Cr Clr Drug Dosing 222.3 ml/min eGFR 117.42 BUN/Creatinine Ratio 21.2 H (10-20) Glucose 174 H (70-99(Fasting)) mg/dl Calcium 9.1 (8.6-10.3) mg/dl Total Bilirubin 0.5 (0.2-1.0) mg/dl Direct Bilirubin TNP 0.1 AST TNP 11 L ALT 11 (7-52) U/L Alkaline Phosphatase 70 (34-104) U/L Total Protein 7.8 (6.0-8.3) gm/dl Albumin 3.6 (3.4-5.0) gm/dl Globulin 4.2 H (2.5-4.0) gm/dl Albumin/Globulin Ratio 0.9 (0.9-2) Lipase 11 (11-82) U/L HCG, Qual Negative (Negative) Administered Medications Lactated Ringer's (Lr) 1,000 mls @ 125 mls/hr IV .Q8H ROSA ELENA Stop: 11/27/24 00:05 Last Admin: 11/24/24 01:04 Dose: 125 mls/hr Documented By: KATY Discontinued Medications Sodium Chloride (Nss) 1,000 mls @ 999 mls/hr IV .Q1H1M ONE Stop: 11/23/24 19:47 Last Infusion: 11/23/24 21:29 Dose: Infused Documented By: Admin: 11/23/24 19:43 Dose: 999 mls/hr Documented By: LUIS Acetaminophen (Ofirmev) 1,000 mg in 100 mls @ 400 mls/hr IV NOW STA Stop: 11/23/24 19:49 Last Infusion: 11/23/24 20:17 Dose: Infused Documented By: Admin: 11/23/24 19:45 Dose: 400 mls/hr Documented By: LUIS Famotidine (Pepcid 20mg Iv Push) 20 mg in 5 mls @ 2.5 mls/min IV NOW STA Stop: 11/23/24 19:37 Last Admin: 11/23/24 19:44 Dose: 2.5 mls/min Documented By: LUIS Ioversol (Optiray 320 125ml) 119 ml IV ONCE ONE Stop: 11/23/24 20:06 Last Admin: 11/23/24 20:05 Dose: 119 ml Documented By: CRYSTAL Ondansetron HCl (Ondansetron Inj 2 Mg/Ml 2 Ml Vial) 4 mg IV NOW STA Stop: 11/23/24 19:36 Last Admin: 11/23/24 19:43 Dose: 4 mg Documented By: LUIS Imaging Data Radiologist's Impression: Abdomen/Pelvis CT 11/23/24 19:35 Exam(s): CT ABDOMEN + PELVIS With Contrast IV Amt: 119 ml optiray 320 EXAM: CT Abdomen and Pelvis With Intravenous Contrast CLINICAL HISTORY: abd pain, n/v. TECHNIQUE: Axial computed tomography images of the abdomen and pelvis with intravenous contrast. CTDI is 32.62 mGy and DLP is 2795.5 mGy-cm. Automated exposure control was utilized for the study. A dose lowering technique was utilized adhering to the principles of ALARA. CONTRAST: Patient received 119 ml optiray 320 of IV contrast COMPARISON: No relevant prior studies available. FINDINGS: Artifacts: Scatter artifact likely related to patient's body habitus. Limitations: The prominent overlying soft tissues are only partially included, as on the previous examination secondary to patient body habitus. This limits detailed evaluation of the patient's large hernia. Lung bases: Unremarkable. No mass. No consolidation. ABDOMEN: Liver: Unremarkable. No mass. Gallbladder and bile ducts: Cholecystectomy. No ductal dilation. Pancreas: Unremarkable. No mass. No ductal dilation. Spleen: Unremarkable. No splenomegaly. Adrenals: Unremarkable. No mass. Kidneys and ureters: Unremarkable. No solid mass. No hydronephrosis. Stomach and bowel: There is recurrent prominent fluid distention of the stomach. There is fluid dilation of a jejunal loop which immediately extends inferiorly into the hernia. Nearly the entire small bowel, the cecum and ascending colon are entirely within the extraperitoneal pannus. There are several fluid dilated small bowel loops, measuring up to 6.1 cm in diameter with some air-fluid levels. The transition point is not clearly delineated. However, there is asymmetry in the diameter of the proximal small bowel loops with the distal small bowel loops. The included segments of the herniated colon in the intraperitoneal segments of the colon are nearly entirely decompressed. No mucosal thickening. PELVIS: Appendix: No findings to suggest acute appendicitis. Bladder: Unremarkable. No mass. Reproductive: Similar rounded structure along the left lateral aspect of the uterine fundus, presumed fibroid. Right adnexal cyst demonstrates slight morphologic alteration but persists and is thought to be minimally smaller. Follicular changes involving the left adnexa are new but measuring only 1.8 mm. ABDOMEN and PELVIS: Intraperitoneal space: Unremarkable. No free air. No significant fluid collection. Bones/joints: No acute fracture. No dislocation. Soft tissues: The umbilicus is not clearly delineated separate from the large ventral hernia, multi lobular in appearance and extending into the patient's pannus which extends inferiorly to the level of the knee joints. The hernia measures a proximally 12.7 cm transverse by 8.2 cm craniocaudal. There is a large right lateral component with multi lobulated appearance. Some of the hernia is not included. Marked edema along the inferior aspect of the pannus with dermal thickening is again noted, incompletely visualized. Vasculature: Unremarkable. No abdominal aortic aneurysm. Lymph nodes: Unremarkable. No enlarged lymph nodes. IMPRESSION: 1. The prominent overlying soft tissues are only partially included, as on the previous examination secondary to patient body habitus. This limits detailed evaluation of the patient's large hernia. 2. The umbilicus is not clearly delineated separate from the large ventral hernia, multi lobular in appearance and extending into the patient's pannus which extends inferiorly to the level of the knee joints. The hernia measures a proximally 12.7 cm transverse by 8.2 cm craniocaudal. There is a large right lateral component with multi lobulated appearance. Some of the hernia is not included. 3. There is recurrent prominent fluid distention of the stomach. There is fluid dilation of a jejunal loop which immediately extends inferiorly into the hernia. Nearly the entire small bowel, the cecum and ascending colon are entirely within the extraperitoneal pannus. There are several fluid dilated small bowel loops, measuring up to 6.1 cm in diameter with some air-fluid levels. The transition point is not clearly delineated. However, there is asymmetry in the diameter of the proximal small bowel loops with the distal small bowel loops. The included segments of the herniated colon in the intraperitoneal segments of the colon are nearly entirely decompressed. Findings are most consistent with recurrent small- bowel obstruction. No definite pneumoperitoneum. 4. Marked edema along the inferior aspect of the pannus with dermal thickening is again noted, incompletely visualized. 5. Right adnexal cyst demonstrates slight morphologic alteration but persists and is thought to be minimally smaller. Follicular changes involving the left adnexa are new but measuring only 1.8 mm. Electronically signed by: Michele Neville MD 11/23/24 21:34 PM Discharge Plan Visit Data Chief Complaint: Nausea ED Provider: Deniz Garcia Discharge Problem: Ventral hernia with bowel obstruction, Abdominal pain, Nausea & vomiting Patient Disposition: Admitted As Inpatient Condition: Fair Discharge Instructions Interventions: ED Discharge Assessment Last Done: 11/23/24 23:18 Discharge Problem: Abdominal pain Qualifiers: Abdominal location: generalized Qualified Code(s): R10.84 - Generalized abdominal pain Nausea & vomiting Qualifiers: Vomiting type: unspecified Qualified Code(s): R11.2 - Nausea with vomiting, unspecified
[2024-11-23] MEDS: SODIUM CHLORIDE 0.9% 1,000 ML IV ONE (19:43)
[2024-11-23] MEDS: ONDANSETRON INJ 2 MG/ML 2 ML VIAL IV STA (19:43)
[2024-11-23] MEDS: FAMOTIDINE 20MG IV PUSH 20 MG/5 ML SYR IV STA (19:44)
[2024-11-23] MEDS: ACETAMINOPHEN 1,000 MG/100 ML VIAL IV STA (19:45)
[2024-11-23] MEDS: OPTIRAY 320 125ml IV ONE (20:05)
[2024-11-23 20:21] LABS: Pregnancy Test, Serum Negative (Negative)
[2024-11-23 20:22] LABS: Potassium 3.9 mmol/L (3.5-5.1); Sodium 137.0 mmol/L (136-145)
[2024-11-23 20:59] LABS: INR 1.1 (0.9-1.1); Prothrombin Time 11.5 Seconds (9.0-12.0)
--- NOTE | 2024-11-23 21:35 | CT Scan Report ---
Exam(s): CT ABDOMEN + PELVIS With Contrast IV Amt: 119 ml optiray 320 EXAM: CT Abdomen and Pelvis With Intravenous Contrast CLINICAL HISTORY: abd pain, n/v. TECHNIQUE: Axial computed tomography images of the abdomen and pelvis with intravenous contrast. CTDI is 32.62 mGy and DLP is 2795.5 mGy-cm. Automated exposure control was utilized for the study. A dose lowering technique was utilized adhering to the principles of ALARA. CONTRAST: Patient received 119 ml optiray 320 of IV contrast COMPARISON: No relevant prior studies available. FINDINGS: Artifacts: Scatter artifact likely related to patient's body habitus. Limitations: The prominent overlying soft tissues are only partially included, as on the previous examination secondary to patient body habitus. This limits detailed evaluation of the patient's large hernia. Lung bases: Unremarkable. No mass. No consolidation. ABDOMEN: Liver: Unremarkable. No mass. Gallbladder and bile ducts: Cholecystectomy. No ductal dilation. Pancreas: Unremarkable. No mass. No ductal dilation. Spleen: Unremarkable. No splenomegaly. Adrenals: Unremarkable. No mass. Kidneys and ureters: Unremarkable. No solid mass. No hydronephrosis. Stomach and bowel: There is recurrent prominent fluid distention of the stomach. There is fluid dilation of a jejunal loop which immediately extends inferiorly into the hernia. Nearly the entire small bowel, the cecum and ascending colon are entirely within the extraperitoneal pannus. There are several fluid dilated small bowel loops, measuring up to 6.1 cm in diameter with some air-fluid levels. The transition point is not clearly delineated. However, there is asymmetry in the diameter of the proximal small bowel loops with the distal small bowel loops. The included segments of the herniated colon in the intraperitoneal segments of the colon are nearly entirely decompressed. No mucosal thickening. PELVIS: Appendix: No findings to suggest acute appendicitis. Bladder: Unremarkable. No mass. Reproductive: Similar rounded structure along the left lateral aspect of the uterine fundus, presumed fibroid. Right adnexal cyst demonstrates slight morphologic alteration but persists and is thought to be minimally smaller. Follicular changes involving the left adnexa are new but measuring only 1.8 mm. ABDOMEN and PELVIS: Intraperitoneal space: Unremarkable. No free air. No significant fluid collection. Bones/joints: No acute fracture. No dislocation. Soft tissues: The umbilicus is not clearly delineated separate from the large ventral hernia, multi lobular in appearance and extending into the patient's pannus which extends inferiorly to the level of the knee joints. The hernia measures a proximally 12.7 cm transverse by 8.2 cm craniocaudal. There is a large right lateral component with multi lobulated appearance. Some of the hernia is not included. Marked edema along the inferior aspect of the pannus with dermal thickening is again noted, incompletely visualized. Vasculature: Unremarkable. No abdominal aortic aneurysm. Lymph nodes: Unremarkable. No enlarged lymph nodes. IMPRESSION: 1. The prominent overlying soft tissues are only partially included, as on the previous examination secondary to patient body habitus. This limits detailed evaluation of the patient's large hernia. 2. The umbilicus is not clearly delineated separate from the large ventral hernia, multi lobular in appearance and extending into the patient's pannus which extends inferiorly to the level of the knee joints. The hernia measures a proximally 12.7 cm transverse by 8.2 cm craniocaudal. There is a large right lateral component with multi lobulated appearance. Some of the hernia is not included. 3. There is recurrent prominent fluid distention of the stomach. There is fluid dilation of a jejunal loop which immediately extends inferiorly into the hernia. Nearly the entire small bowel, the cecum and ascending colon are entirely within the extraperitoneal pannus. There are several fluid dilated small bowel loops, measuring up to 6.1 cm in diameter with some air-fluid levels. The transition point is not clearly delineated. However, there is asymmetry in the diameter of the proximal small bowel loops with the distal small bowel loops. The included segments of the herniated colon in the intraperitoneal segments of the colon are nearly entirely decompressed. Findings are most consistent with recurrent small- bowel obstruction. No definite pneumoperitoneum. 4. Marked edema along the inferior aspect of the pannus with dermal thickening is again noted, incompletely visualized. 5. Right adnexal cyst demonstrates slight morphologic alteration but persists and is thought to be minimally smaller. Follicular changes involving the left adnexa are new but measuring only 1.8 mm. Electronically signed by: Michele Neville MD 11/23/24 21:34 PM
--- NOTE | 2024-11-23 23:10 | Surgery Consultation ---
Date of Consultation November 23, 2024 Assessment & Plan (1) SBO (small bowel obstruction): I discussed with the treating clinician the emergency department the patient is being admitted on hospital service. From surgery perspective we recommend the following: Implement n.p.o. status Provide IV fluid for hydration Emergency department physician has ordered an NG tube and I agree with this modality. Can be placed to low continuous suction and can be removed once patient has consistent return of her bowel function. At that time consideration be given to advancing her diet beginning with clear liquids At the present time the patient is nontoxic-appearing. She is normotensive without tachycardia or fever and has minimal pain on exam. She also notes that she is passing a small amount of flatus. Therefore, I feel conservative measures can be employed at the present time If the patient would require surgical intervention she will be need to be transferred to a hernia specialist or a tertiary care center Additional recommendations be forthcoming based on her clinical course as unfolds Supervising Physician Co-Signing Physician Notes pnt d/w KADY, labs and imaging reviewed, agree with above. Morbid obesity (BMI80 ) with recurrent large ventral hernia presents with sbo. CT personally reviewed and interpreted, agree sbo and ventral hernia, limited due to body habitus. Admit for non operative management. Any surgical intervention would require transfer to tertiary center. History of Present Illness Reason for Consultation: Small bowel obstruction History of Present Illness 44-year-old female who presented to the emergency department secondary to not having a bowel movement in approximately 1-1/2 days. Patient also had some associated nausea and vomiting this morning and some minor abdominal pain. The patient notes that she has had a complex abdominal history having 3 hernia surgeries utilizing mesh. She notes her most recent surgery was in 2014. She was seen at [facility] in July of this year with similar problem where she had a small bowel obstruction and this was treated successfully in a conservative manner not requiring surgery. Patient does note that she has seen a hernia specialist at [facility] in 2016 but she did not undergo surgical intervention at that time due to concerns with her current employment requiring heavy lifting. She does note that since arrival to the emergency department she feels better. She is passing a small amount of flatus. This is a since arrival to the hospital the patient has had labs and imaging which I independent reviewed. CT scan of the abdomen pelvis shows that patient has a large ventral hernia. This hernia containing nearly the entire small bowel, the cecum, and a ascending colon. There is no clear transition point but there were several dilated loops of small bowel concerning for small bowel obstruction. There is no definite pneumoperitoneum noted. Labs including CBC were white blood cell count is elevated 10.8. Hemoglobin and hematocrit as well as platelet count were normal. Coagulation studies were normal. Chemistry profile showed sodium and potassium were normal. BUN was not elevated. The creatinine was not elevated. There is no elevation of her lipase. At the time of my interview the patient was resting comfortably in bed and was in no distress. Allergies Allergy/AdvReac Type Severity Reaction Status Date / Time Sulfa (Sulfonamide Allergy Intermediate ? Verified 11/23/24 18:34 Antibiotics) Home Medications Medication Instructions Recorded Confirmed Type No Known Home Medications 11/23/24 11/23/24 History Patient History Medical History Schizophrenia Depression Asthma Seizure Hernia of abdominal wall Morbid obesity Surgical History H/O hernia repair Social History Smoking Status: Former smoker Hx Alcohol Use: No Hx Substance Use: No Preferred Language: Lebanese Communication Ability: Effective Transmission And Protection Engineer Required: No Beliefs That Will Affect Care: None marital status details: Current Living Situation: Spouse current occupational status: employed current occupation: cook Feels Safe at Home: Yes Assistive Devices: None Review of Systems Review of Systems: All systems reviewed & are unremarkable except as noted in HPI & below Physical Exam Constitutional: WD/WN, vitals as above Eyes: no conjunctival abnormality ENMT: Ears: no hearing impairment and no external ear abnormality Mouth: no oropharynx abnormality Neck: trachea midline Respiratory: normal respiratory effort; no respiratory distress and no labored breathing Cardiovascular: Rate/Rhythm: regular rate and regular rhythm Gastrointestinal (Abdomen): Patient has a very large pannus which is soft and nondistended. At the present time her abdomen does not exhibit any rigidity and there is minimal to no pain with palpation at this time. I cannot palpate any hernias or masses. Musculoskeletal: No calf tenderness Skin: no rashes Neurologic: moves all extremities Psychiatric: A+Ox3, euthymic affect Results & Data Vital Signs (Past 12 Hours) Vital Signs Temp Pulse Pulse Resp BP BP Pulse Ox 11/23/24 22:44 83 11/23/24 22:00 84 20 129/62 98 11/23/24 20:30 60 20 133/59 L 97 11/23/24 19:03 97 11/23/24 18:44 88 11/23/24 18:31 36.8 C 86 20 159/89 H 96 O2 Del Method 11/23/24 22:44 11/23/24 22:00 Room Air 11/23/24 20:30 Room Air 11/23/24 19:03 Room Air 11/23/24 18:44 11/23/24 18:31 Room Air PG Care Time/CCT Total # of Minutes Spent Total Time Spent with Patient: Total time spent is greater than 50% in coordination of care (as documented) at patient's floor/unit and/or counseling patient: Coding Level of Care Code 43997 IN/OBS CONSULT LVL 5,80M Diagnoses SBO (small bowel obstruction) K56.609
--- NOTE | 2024-11-23 23:20 | History & Physical Report ---
Date of Service November 23, 2024 Assessment & Plan (1) SBO (small bowel obstruction): Plan: 44-year-old female with past medical history significant for right ovarian mass, BMI greater than 70, history of DVT, schizophrenia currently not on any medications and history of small bowel obstruction presents with nausea vomiting and abdominal pain and CAT scan showing recurrent small bowel obstruction. Patient states since today afternoon she developed nausea vomiting and abdominal pain. Vomited 3 times. Denies blood in the vomiting. Last bowel movement was yesterday afternoon which was normal. Since last bowel obstruction in July 2024 she says she is on bowel regimen, takes MiraLAX daily and moving her bowels regularly. Denies any fevers. No chest pain or shortness of breath. Micturating okay. No cough. Had some headache earlier. Vision is okay. No runny nose or sore throat. Hemodynamics are okay. Small bowel obstruction Recurrent Large ventral hernia with nearly entire small bowel, cecum and ascending colon are entirely within the extraperitoneal pannus. Patient had history of ventral hernia repair in the past and umbilical hernia repair in the past Conservative management for now NG tube ordered by ER N.p.o. IV fluids and pain meds as needed and IV antiemetics as needed Appreciate surgery input Morbid obesity Counseling DVT prophylaxis Lovenox Disposition Medical floor Full code. History of Present Illness Chief Complaint: Small bowel obstruction Primary Care Provider: Cory Patel MD 44-year-old female with past medical history significant for right ovarian mass, BMI greater than 70, history of DVT, schizophrenia currently not on any medications and history of small bowel obstruction presents with nausea vomiting and abdominal pain and CAT scan showing recurrent small bowel obstruction. Patient states since today afternoon she developed nausea vomiting and abdominal pain. Vomited 3 times. Denies blood in the vomiting. Last bowel movement was yesterday afternoon which was normal. Since last bowel obstruction in July 2024 she says she is on bowel regimen, takes MiraLAX daily and moving her bowels regularly. Denies any fevers. No chest pain or shortness of breath. Micturating okay. No cough. Had some headache earlier. Vision is okay. No runny nose or sore throat. Hemodynamics are okay. Past medical history. As mentioned above. Past surgical history. Lumbar/ventral hernia repair x 2. Tonsillectomy and adenoidectomy. Umbilical hernia repair. [place] teeth removal. Social history. . Quit smoking 2007. Alcohol rarely. No drug use. Family history. Mother had PIETRO gene. Had pancreatic cancer/lung. Paternal grandmother had rheumatoid arthritis. Maternal grandmother had kidney and bone cancer. Heart disorder. Paternal grandfather had peptic ulcers. Maternal grandfather had emphysema. Father had sciatica rheumatoid arthritis. Allergies Allergy/AdvReac Type Severity Reaction Status Date / Time Sulfa (Sulfonamide Allergy Intermediate ? Verified 11/23/24 18:34 Antibiotics) Home Medications Medication Instructions Recorded Confirmed Type No Known Home Medications 11/23/24 11/23/24 History Past Med/Surg History Problem List (Updated 11/24/24 @ 04:55 by Deniz Garcia MD) Nausea & vomiting (Acute) Cellulitis of abdominal wall (Acute) Ventral hernia with bowel obstruction (Acute) Abdominal wall cellulitis SBO (small bowel obstruction) (Acute) Abdominal pain (Acute) Dyspepsia (Acute) Hyperglycemia (Acute) Lumbar radiculopathy (Acute) Tubo-ovarian abscess (Acute) Medical History Schizophrenia Depression Asthma Seizure Hernia of abdominal wall Morbid obesity Surgical History H/O hernia repair Social History Smoking Status: Never smoker Hx Alcohol Use: No Hx Substance Use: No Preferred Language: Filipino Communication Ability: Effective 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 ENT- oropharynx clear Neck- supple, no JVD. Lungs- clear to auscultation no wheezing or crackles Heart- regular rate and rhythm; no murmur, no gallop. Abdomen- sluggish bowel sounds, soft, nontender, no guarding, no obvious erythema under pannus Extremities- no pretibial edema, no erythema seen. Neuro- alert, oriented PERRL, no facial palsy; no dysarthria; moves extremities Results & Data Results & Data Vital Signs (Past 12 Hours) Vital Signs Temp Pulse Pulse Resp BP BP Pulse Ox 11/23/24 22:44 83 11/23/24 22:00 84 20 129/62 98 11/23/24 20:30 60 20 133/59 L 97 11/23/24 19:03 97 11/23/24 18:44 88 11/23/24 18:31 36.8 C 86 20 159/89 H 96 O2 Del Method 11/23/24 22:44 11/23/24 22:00 Room Air 11/23/24 20:30 Room Air 11/23/24 19:03 Room Air 11/23/24 18:44 11/23/24 18:31 Room Air Diagnostic Findings Laboratory Results WBC 10.81 K/ul (4.8-10.8) H 11/23/24 18:53 RBC 4.63 M/uL (4.20-5.40) 11/23/24 18:53 Hgb 12.1 g/dl (12.0-16.0) 11/23/24 18:53 Hct 38.2 % (37.0-47.0) 11/23/24 18:53 MCV 82.5 fL (80.0-100.0) 11/23/24 18:53 MCH 26.1 pg (25.0-34.0) 11/23/24 18:53 MCHC 31.7 g/dL (32.0-36.0) L 11/23/24 18:53 RDW Std Deviation 43.4 fL (36.4-46.3) 11/23/24 18:53 RDW Coeff of [place] 14.7 % (11.5-14.5) H 11/23/24 18:53 Plt Count 250 K/uL (130-400) 11/23/24 18:53 MPV 10.6 fL (9.4-12.4) 11/23/24 18:53 Immature Gran % (Auto) 0.2 % 11/23/24 18:53 Neut % (Auto) 79.4 % 11/23/24 18:53 Lymph % (Auto) 14.2 % 11/23/24 18:53 [place] % (Auto) 5.3 % 11/23/24 18:53 Eos % (Auto) 0.5 % 11/23/24 18:53 Baso % (Auto) 0.4 % 11/23/24 18:53 Neut # (Auto) 8.59 K/uL (1.40-6.50) H 11/23/24 18:53 Lymph # (Auto) 1.54 K/uL (1.20-3.40) 11/23/24 18:53 [place] # (Auto) 0.57 K/uL (0.11-0.59) 11/23/24 18:53 Eos # (Auto) 0.05 K/uL (0.00-0.50) 11/23/24 18:53 Baso # (Auto) 0.04 K/uL (0.00-0.20) 11/23/24 18:53 Immature Gran # (Auto) 0.02 K/uL (0.01-0.20) 11/23/24 18:53 PT 11.5 Seconds (9.0-12.0) 11/23/24 19:47 INR 1.1 (0.9-1.1) 11/23/24 19:47 Sodium 137 mmol/L (136-145) 11/23/24 19:47 Potassium 3.9 mmol/L (3.5-5.1) 11/23/24 19:47 Chloride 102 mmol/L (98-107) 11/23/24 18:53 Carbon Dioxide 27 mmol/L (21-32) 11/23/24 18:53 Anion Gap TNP 11/23/24 18:53 BUN 11 mg/dl (6-23) 11/23/24 18:53 Creatinine 0.52 mg/dl (0.6-1.2) L 11/23/24 18:53 Est Cr Clr Drug Dosing 222.3 ml/min 11/23/24 18:53 eGFR 117.42 11/23/24 18:53 BUN/Creatinine Ratio 21.2 (10-20) H 11/23/24 18:53 Glucose 174 mg/dl (70-99(Fasting)) H 11/23/24 18:53 Calcium 9.1 mg/dl (8.6-10.3) 11/23/24 18:53 Total Bilirubin 0.5 mg/dl (0.2-1.0) 11/23/24 18:53 Direct Bilirubin 0.1 mg/dl (0-0.2) 11/23/24 19:47 AST 11 U/L (13-39) L 11/23/24 19:47 ALT 11 U/L (7-52) 11/23/24 18:53 Alkaline Phosphatase 70 U/L (34-104) 11/23/24 18:53 Total Protein 7.8 gm/dl (6.0-8.3) 11/23/24 18:53 Albumin 3.6 gm/dl (3.4-5.0) 11/23/24 18:53 Globulin 4.2 gm/dl (2.5-4.0) H 11/23/24 18:53 Albumin/Globulin Ratio 0.9 (0.9-2) 11/23/24 18:53 Lipase 11 U/L (11-82) 11/23/24 18:53 HCG, Qual Negative (Negative) 11/23/24 19:47 Impressions Abdomen/Pelvis CT 11/23/24 19:35 Exam(s): CT ABDOMEN + PELVIS With Contrast IV Amt: 119 ml optiray 320 EXAM: CT Abdomen and Pelvis With Intravenous Contrast CLINICAL HISTORY: abd pain, n/v. TECHNIQUE: Axial computed tomography images of the abdomen and pelvis with intravenous contrast. CTDI is 32.62 mGy and DLP is 2795.5 mGy-cm. Automated exposure control was utilized for the study. A dose lowering technique was utilized adhering to the principles of ALARA. CONTRAST: Patient received 119 ml optiray 320 of IV contrast COMPARISON: No relevant prior studies available. FINDINGS: Artifacts: Scatter artifact likely related to patient's body habitus. Limitations: The prominent overlying soft tissues are only partially included, as on the previous examination secondary to patient body habitus. This limits detailed evaluation of the patient's large hernia. Lung bases: Unremarkable. No mass. No consolidation. ABDOMEN: Liver: Unremarkable. No mass. Gallbladder and bile ducts: Cholecystectomy. No ductal dilation. Pancreas: Unremarkable. No mass. No ductal dilation. Spleen: Unremarkable. No splenomegaly. Adrenals: Unremarkable. No mass. Kidneys and ureters: Unremarkable. No solid mass. No hydronephrosis. Stomach and bowel: There is recurrent prominent fluid distention of the stomach. There is fluid dilation of a jejunal loop which immediately extends inferiorly into the hernia. Nearly the entire small bowel, the cecum and ascending colon are entirely within the extraperitoneal pannus. There are several fluid dilated small bowel loops, measuring up to 6.1 cm in diameter with some air-fluid levels. The transition point is not clearly delineated. However, there is asymmetry in the diameter of the proximal small bowel loops with the distal small bowel loops. The included segments of the herniated colon in the intraperitoneal segments of the colon are nearly entirely decompressed. No mucosal thickening. PELVIS: Appendix: No findings to suggest acute appendicitis. Bladder: Unremarkable. No mass. Reproductive: Similar rounded structure along the left lateral aspect of the uterine fundus, presumed fibroid. Right adnexal cyst demonstrates slight morphologic alteration but persists and is thought to be minimally smaller. Follicular changes involving the left adnexa are new but measuring only 1.8 mm. ABDOMEN and PELVIS: Intraperitoneal space: Unremarkable. No free air. No significant fluid collection. Bones/joints: No acute fracture. No dislocation. Soft tissues: The umbilicus is not clearly delineated separate from the large ventral hernia, multi lobular in appearance and extending into the patient's pannus which extends inferiorly to the level of the knee joints. The hernia measures a proximally 12.7 cm transverse by 8.2 cm craniocaudal. There is a large right lateral component with multi lobulated appearance. Some of the hernia is not included. Marked edema along the inferior aspect of the pannus with dermal thickening is again noted, incompletely visualized. Vasculature: Unremarkable. No abdominal aortic aneurysm. Lymph nodes: Unremarkable. No enlarged lymph nodes. IMPRESSION: 1. The prominent overlying soft tissues are only partially included, as on the previous examination secondary to patient body habitus. This limits detailed evaluation of the patient's large hernia. 2. The umbilicus is not clearly delineated separate from the large ventral hernia, multi lobular in appearance and extending into the patient's pannus which extends inferiorly to the level of the knee joints. The hernia measures a proximally 12.7 cm transverse by 8.2 cm craniocaudal. There is a large right lateral component with multi lobulated appearance. Some of the hernia is not included. 3. There is recurrent prominent fluid distention of the stomach. There is fluid dilation of a jejunal loop which immediately extends inferiorly into the hernia. Nearly the entire small bowel, the cecum and ascending colon are entirely within the extraperitoneal pannus. There are several fluid dilated small bowel loops, measuring up to 6.1 cm in diameter with some air-fluid levels. The transition point is not clearly delineated. However, there is asymmetry in the diameter of the proximal small bowel loops with the distal small bowel loops. The included segments of the herniated colon in the intraperitoneal segments of the colon are nearly entirely decompressed. Findings are most consistent with recurrent small- bowel obstruction. No definite pneumoperitoneum. 4. Marked edema along the inferior aspect of the pannus with dermal thickening is again noted, incompletely visualized. 5. Right adnexal cyst demonstrates slight morphologic alteration but persists and is thought to be minimally smaller. Follicular changes involving the left adnexa are new but measuring only 1.8 mm. Electronically signed by: Michele Neville MD 11/23/24 21:34 PM Code Status & VTE Plan VTE Prophylaxis Plan VTE Prophylaxis will be ordered: Yes
[2024-11-24] MEDS ORDERED: HYDROmorphone INJ 0.5 MG/0.5 ML SYR IV PRN (00:06)
[2024-11-24] MEDS ORDERED: ACETAMINOPHEN 1,000 MG/100 ML VIAL IV PRN (00:06)
[2024-11-24] MEDS ORDERED: ONDANSETRON INJ 2 MG/ML 2 ML VIAL IV PRN (00:06)
--- NOTE | 2024-11-24 00:28 | XRay Report ---
Exam(s): XR KUB EXAM: XR Abdomen, 1 View CLINICAL HISTORY: NG tube placement. TECHNIQUE: Frontal supine view of the chest and abdomen. COMPARISON: Acute abdominal series 10/20/2012 FINDINGS: Gastrointestinal tract: Nondiagnostic for evaluation of the bowel. Bones/joints: Unremarkable. No acute fracture. Soft tissues: Evaluation is limited by prominent overlying soft tissues. Tubes, lines and devices: The nasogastric tube terminates in the left upper quadrant with the side port near the gastroesophageal junction. IMPRESSION: The nasogastric tube terminates in the left upper quadrant with the side port near the gastroesophageal junction. The tip is presumed in the proximal body of the stomach. Electronically signed by: Michele Neville MD 11/24/24 00:27 AM
[2024-11-24 00:47] VITALS: RESP 18
[2024-11-24] MEDS: LACTATED RINGER'S 1,000 ML IV SCH (01:04)
[2024-11-24 05:54] LABS: Hematocrit (blood only) 36.7 % (37.0-47.0); Hemoglobin 11.6 g/dl (12.0-16.0); Immature Granulocytes # (auto) 0.02 K/uL (0.01-0.20); Immature Granulocytes % (auto) 0.3 %; Mean Corpuscular Hemoglobin 26.7 pg (25.0-34.0); Mean Corpuscular Volume 84.4 fL (80.0-100.0); Platelet Count 243 K/uL (130-400); RDW Standard Deviation 45.0 fL (36.4-46.3); Red Blood Count 4.35 M/uL (4.20-5.40); White Blood Count 6.64 K/ul (4.8-10.8)
[2024-11-24 06:17] LABS: Anion Gap 6.0 (3-11); Blood Urea Nitrogen 10.0 mg/dl (6-23); Calcium 8.6 mg/dl (8.6-10.3); Carbon Dioxide 27.0 mmol/L (21-32); Chloride 105.0 mmol/L (98-107); Creatinine Clr Calc Pharmacy 274.9 ml/min; Glucose 139.0 mg/dl (70-99(Fasting)); Magnesium 1.9 mg/dl (1.7-2.4); Potassium 3.8 mmol/L (3.5-5.1); Sodium 138.0 mmol/L (136-145)
[2024-11-24] MEDS: ENOXAPARIN INJ 40 MG/0.4 ML SYR SQ SCH (07:27)
--- NOTE | 2024-11-24 07:54 | Surgery Progress Note ---
Date of Service November 24, 2024 Assessment & Plan (1) Ventral hernia with bowel obstruction: Plan: Pt admitted with sbo endorses +flatus this am and decreased in abd pain significant pannus , upper abd soft non tender continue NGT and NPO for now Admission and Anticipated Discharge Date Admission Date: November 23, 2024 Supervising Physician Co-Signing Physician Notes I saw this patient this am. Agree with above, no abdominal pain, no N/V, feels she is improved/resolved. HD stable and afebrile. Initiate 4 hour clamping trial. If no residuals after 4 hours, may pull the NGT and start sips of clears Will follow up in the am Subjective pt reports feeling better then yesterday denies abd pain, cp , sob +flatus Review of Systems Constitutional: no fever and no chills Respiratory: no dyspnea Cardiovascular: no chest pain Gastrointestinal: no abdominal pain, no nausea and no vomiting Psychiatric: no confusion Physical Exam Constitutional: cooperative and comfortable; no acute distress Respiratory: normal respiratory effort; no respiratory distress Cardiovascular: Rate/Rhythm: + tachycardic (92) Gastrointestinal (Abdomen): Inspection/Auscultation: + significant pannus Percussion/Palpation: abdomen soft; abdomen nontender Psychiatric: A+Ox3, euthymic affect Results & Data Vital Signs (Past 12 Hours) Vital Signs Temp Pulse Pulse Resp BP Pulse Ox O2 Del Method 11/23/24 23:55 97.9 F 92 H 18 140/79 91 Room Air 11/23/24 23:18 Room Air 11/23/24 22:44 83 11/23/24 22:00 84 20 129/62 98 Room Air 11/23/24 20:30 60 20 133/59 L 97 Room Air PG Care Time/CCT Total # of Minutes Spent Total Time Spent with Patient: Total time spent is greater than 50% in coordination of care (as documented) at patient's floor/unit and/or counseling patient: Coding Level of Care Code 04319 SUB INP/OBS CARE 06/18MIN Diagnoses Ventral hernia with bowel obstruction K43.6
[2024-11-24 11:25] LABS: Appearance Urine Clear (Clear); Glucose Urine UA Negative (Negative)
--- NOTE | 2024-11-24 14:17 | Hospitalist Progress Note ---
Date of Service November 24, 2024 Assessment & Plan (1) SBO (small bowel obstruction): Plan: 44-year-old female with past medical history significant for right ovarian mass, BMI greater than 70, history of DVT, schizophrenia currently not on any medications and history of small bowel obstruction presents with nausea vomiting and abdominal pain and CAT scan showing recurrent small bowel obstruction. Patient states since today afternoon she developed nausea vomiting and abdominal pain. Vomited 3 times. Denies blood in the vomiting. Last bowel movement was yesterday afternoon which was normal. Since last bowel obstruction in July 2024 she says she is on bowel regimen, takes MiraLAX daily and moving her bowels regularly. Denies any fevers. No chest pain or shortness of breath. Micturating okay. No cough. Had some headache earlier. Vision is okay. No runny nose or sore throat. Hemodynamics are okay. #Recurrent Small Bowel Obstruction -Large ventral hernia with nearly entire small bowel, cecum and ascending colon are entirely within the extraperitoneal pannus. -Patient had history of ventral hernia repair in the past and umbilical hernia repair in the past -improving today, passing gas Plan: -surgery consulted, appreciate recs -increase maintenance fluids to 150cc/hr based on body habitus -advance to clear liquids per surgery recs -if passes stool and tolerates diet possible discharge tomorrow #Morbid obesity Counseling I spent a total of 40 minutes in direct patient care, including [id number] time with the patient and/or family, reviewing medical records, ordering and reviewing diagnostic tests, and coordinating care with other healthcare providers. This time includes: history taking, physical examination, medical decision making, counseling, ECG interpretation, imaging interpretation, lab interpretation, orders, and education, excluding time spent in the performance of separately billed services. Admission and Anticipated Discharge Date Admission Date: November 23, 2024 Subjective Patient seen and examined at bedside. Feeling better today and passing gas. Pain in abdomen resolving. No nausea or vomiting at this time. Review of Systems Review of Systems: CONSTITUTIONAL: Patient denies fevers, chills, sweats and weight changes. EYES: Patient denies any visual symptoms. EARS, NOSE, AND THROAT: No difficulties with hearing. No symptoms of rhinitis or sore throat. CARDIOVASCULAR: Patient denies chest pains, palpitations, orthopnea and paroxysmal nocturnal dyspnea. RESPIRATORY: No dyspnea on exertion, no wheezing or cough. GI: No nausea, vomiting, diarrhea, constipation, abdominal pain, hematochezia or melena. : No urinary hesitancy or dribbling. No nocturia or urinary frequency. No abnormal urethral discharge. MUSCULOSKELETAL: No myalgias or arthralgias. NEUROLOGIC: No chronic headaches, no seizures. Patient denies numbness, tingling or weakness. PSYCHIATRIC: Patient denies problems with mood disturbance. No problems with anxiety. ENDOCRINE: No excessive urination or excessive thirst. DERMATOLOGIC: Patient denies any rashes or skin changes. Physical Exam Physical Exam: Gen: A&O 3 NAD HEENT: NCAT, EOMI, not icteric. External ears normal. No rhinorrhea. Moist mucous membranes. Neck: Supple, full range of motion, no observable masses, No meningeal sign. Lungs: No Respiratory distress. CV: RRR, no edema. Abdomen: Soft, nondistended, No rebound tenderness. Passing gas MSK: No joint swelling, no redness. Skin: No rashes, petechiae, lesions. Normal color per patient. Neuro: Normal Gait, Grossly intact. Psych: Appropriate for situation. Results & Data Results & Data Vital Signs (Past 12 Hours) Vital Signs Temp Pulse Resp BP Pulse Ox O2 Del Method 11/24/24 07:51 36.3 C L 84 18 141/84 H 93 Room Air Laboratory Results -personally reviewed, Hgb and creatinine stable Medications Administered Enoxaparin Sodium (Enoxaparin Inj 40 Mg/0.4 Ml Syr) 40 mg SQ Q12H [facility] Stop: 12/24/24 08:59 Last Admin: 11/24/24 07:27 Dose: 40 mg Documented By: JUDY Lactated Ringer's (Lr) 1,000 mls @ 150 mls/hr IV .[id number] [facility] Stop: 11/27/24 00:05 Last Admin: 11/24/24 14:06 Dose: 150 mls/hr Documented By: Infusion: 11/24/24 14:02 Dose: Infused Documented By: Admin: 11/24/24 08:00 Dose: 150 mls/hr Documented By: Infusion: 11/24/24 07:58 Dose: Infused Documented By: Admin: 11/24/24 01:04 Dose: 125 mls/hr Documented By: KATY
[2024-11-24 19:41] VITALS: O2SAT 94
[2024-11-25 06:15] LABS: Hematocrit (blood only) 34.2 % (37.0-47.0); Hemoglobin 10.5 g/dl (12.0-16.0); Mean Corpuscular Hemoglobin 26.1 pg (25.0-34.0); Mean Corpuscular Volume 84.9 fL (80.0-100.0); Platelet Count 207 K/uL (130-400); RDW Standard Deviation 45.0 fL (36.4-46.3); Red Blood Count 4.03 M/uL (4.20-5.40); White Blood Count 6.24 K/ul (4.8-10.8)
[2024-11-25 06:34] LABS: Anion Gap 6.0 (3-11); Blood Urea Nitrogen 7.0 mg/dl (6-23); Calcium 8.4 mg/dl (8.6-10.3); Carbon Dioxide 27.0 mmol/L (21-32); Chloride 105.0 mmol/L (98-107); Creatinine Clr Calc Pharmacy 281.6 ml/min; Glucose 115.0 mg/dl (70-99(Fasting)); Magnesium 1.8 mg/dl (1.7-2.4); Potassium 3.7 mmol/L (3.5-5.1); Sodium 138.0 mmol/L (136-145)
[2024-11-25 07:21] VITALS: BP 134/81; PULSE 62; TEMP 98.2
--- NOTE | 2024-11-25 09:15 | XRay Report ---
HISTORY: Small bowel obstruction. TECHNIQUE: Supine AP abdominal radiographs, 2 views. COMPARISON: CT of the abdomen pelvis dated 11/23/2024. FINDINGS: Evaluation is limited by Paucity of small bowel gas. There are dilated loops of bowel overlying the lower abdomen measuring up to 5.6 cm in diameter concerning for ongoing small bowel obstruction. No obvious free air or pneumatosis. No suspicious calcifications. No acute osseous abnormality. Mild degenerative changes of the spine. Lung bases are clear. IMPRESSION: * Findings of persistent small bowel obstruction with dilated loops of small bowel overlying the lower abdomen and pelvis measuring up to 5.6 cm in diameter. Electronically signed by Enrrique Preston 11-25-2024 09:14 AM
--- NOTE | 2024-11-25 09:20 | Surgery Progress Note ---
<Statement entered by John Peña, - 11/25/24 10:21> I have seen and examined this patient with the surgical [facility]. I agree with this plan, if lunch goes well, we will sign off and she may be discharged per the medical service. Please call/secure chat with questions or concerns. Date of Service November 25, 2024 Assessment & Plan (1) Ventral hernia with bowel obstruction: Plan: No n/v with clear liquid diet advance to low fiber +flatus VSS if tolerates maybe d/c later today from general surgery standpoint pt to follow up with her hernia specialist in [place] regarding Ventral hernia Pt seen and examined with Dr Peña, general surgery will sign off at this time , call with questions/concerns Admission and Anticipated Discharge Date Admission Date: November 23, 2024 Subjective pt tolerated clear liquids last night and this am denies abd pain , n/v Review of Systems Gastrointestinal: no abdominal pain, no nausea and no vomiting Physical Exam Constitutional: cooperative and comfortable; no acute distress Respiratory: normal respiratory effort and able to speak in complete sentences; no respiratory distress Cardiovascular: Rate/Rhythm: regular rate Gastrointestinal (Abdomen): Inspection/Auscultation: abdomen not distended Results & Data Vital Signs (Past 12 Hours) Vital Signs Temp Pulse Resp BP Pulse Ox O2 Del Method 11/25/24 07:21 98.2 F 62 18 134/81 94 Room Air PG Care Time/CCT Total # of Minutes Spent Total Time Spent with Patient: Total time spent is greater than 50% in coordination of care (as documented) at patient's floor/unit and/or counseling patient: Coding Level of Care Code 88344 SUB INP/OBS CARE 06/18MIN Diagnoses Ventral hernia with bowel obstruction K43.6
== END 2024-11-25 13:25 | disposition home or self-care (01) | DRG 394 ==
LOC: ED 18:25 → 3N 23:01
DX: Z68.45 Body mass index [BMI] 70 or greater, adult; K43.6 Other and unspecified ventral hernia with obstruction, without gangrene; Z87.891 Personal history of nicotine dependence; Z88.2 Allergy status to sulfonamides; Z86.718 Personal history of other venous thrombosis and embolism; F20.9 Schizophrenia, unspecified; E66.01 Morbid (severe) obesity due to excess calories